=== PATIENT | male | born 1960 | race Caucasian/White ===

== ENCOUNTER 2020-05-03 12:52 | Outpatient (CLI) | payer BC, SELFPAY | END 2020-05-03 12:53 | disposition home or self-care (01) | LOC: ANHAUDIO 12:54 | PROVIDERS: PCP Nurse Practitioner Family; Visit Provider Nurse Practitioner Family | DX: H90.A22 Sensorineural hearing loss, unilateral, left ear, with restricted hearing on the contralateral side (principal); H90.A31 Mixed conductive and sensorineural hearing loss, unilateral, right ear with restricted hearing on the contralateral side | CPT/HCPCS: 92557; 92567 ==

== ENCOUNTER 2020-09-16 14:00 | Outpatient (RCR) | payer BC, SELFPAY | END 2020-09-16 23:59 | disposition home or self-care (01) | LOC: ANHAUDIO 14:00 | PROVIDERS: PCP Nurse Practitioner Family; Visit Provider Nurse Practitioner Family | DX: Z46.1 Encounter for fitting and adjustment of hearing aid (principal) | CPT/HCPCS: 99199; V5160; V5261 ==

== ENCOUNTER 2020-10-18 15:06 | Outpatient (RCR) | payer BC, SELFPAY | END 2020-10-18 23:59 | disposition home or self-care (01) | LOC: ANHAUDIO 15:06 | PROVIDERS: PCP Nurse Practitioner Family; Visit Provider Nurse Practitioner Family | DX: Z46.1 Encounter for fitting and adjustment of hearing aid (principal) | CPT/HCPCS: 99199 ==

== ENCOUNTER → 2022-01-13 12:28 | Outpatient (CLI) | payer MEDICARE, SELFPAY ==
--- NOTE | ~2022-01-13 | XR_ITS ---
XR chest 2V 01/13/2022 12:54 Indication: Chronic obstructive lung disease Procedure: 2 view chest Comparison: 05/17/2011 Findings: There has been progression of chronic interstitial fibrosis. Heart size normal. The lungs a re hyperinflated which is consistent with, but not diagnostic of chronic obstructive pulmonary diseas e. No acute focal pneumonia, edema, pleural effusion or pneumothorax. Impression: 1: No acute cardiopulmonary disease. 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 Reviewed, dictated and finalized at location A. Impression: 1: No acute cardiopulmonary disease. 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
== END ==
PROVIDERS: PCP Nurse Practitioner Family; Visit Provider Nurse Practitioner Family
DX: J44.9 Chronic obstructive pulmonary disease, unspecified (principal); J98.2 Interstitial emphysema
CPT/HCPCS: 71046

== ENCOUNTER 2022-01-16 15:15 | Emergency (ER) | payer MEDICARE, MEDICAID, SELFPAY ==
[2022-01-16 15:25] VITALS: BP 134/84; PULSE 72; RESP 16; TEMP 36.5; O2SAT 98
--- NOTE | 2022-01-16 16:07 | ED.BACK ---
HPI - Back Pain/Injury General Chief Complaint: Urogenital-Male Stated Complaint: Kidney Infection Time Seen by Provider: 01/16/22 15:35 Source: patient Mode of arrival: ambulatory Limitations: no limitations History of Present Illness HPI Narrative: 61-year-old male presents with complaint of lower back pain for 1 week. Reports that he has chronic back pain along my spine but now hurting on both sides. Is concerned that he has a kidney infection. Is not having any urinary symptoms. No fever chills. No nausea vomiting diarrhea. Pain is worse with movement. Reports work-related injury 3 and half years ago. Takes Vicodin twice a day. Is prescribed cyclobenzaprine but does not take this medication because it causes drowsiness. No other complaints today. All systems reviewed and negative except as noted above. Related Data Home Medications Medication Instructions Recorded Confirmed albuterol sulfate 2.5 mg/3 mL 2.5 mg continuous nebulization PRN 01/16/22 01/16/22 (0.083 %) solution for nebulization PRN difficulty breathing amlodipine 10 mg tablet 10 mg PO DAILY 01/16/22 01/16/22 cyclobenzaprine 10 mg tablet 10 mg PO DAILY 01/16/22 01/16/22 diclofenac sodium 50 mg 50 mg PO DAILY 01/16/22 01/16/22 tablet,delayed release famotidine 20 mg tablet 20 mg PO DAILY 01/16/22 01/16/22 hydrocodone 5 mg-acetaminophen 325 1 tablet PO DAILY 01/16/22 01/16/22 mg tablet tamsulosin 0.4 mg capsule 0.4 mg PO DAILY 01/16/22 01/16/22 zolpidem 10 mg tablet 10 mg PO DAILY 01/16/22 01/16/22 Allergies Allergy/AdvReac Type Severity Reaction Status Date / Time No Known Allergies Allergy Verified 01/16/22 15:18 Review of Systems Review of Systems: CONSTITUTIONAL: Denies fever, chills, or sweats. EYES: Denies visual changes, redness, or discharge. ENT: Denies rhinorrhea, congestion, sore throat, or otalgia. CARDIOVASCULAR: Denies chest pain, palpitations, or edema. RESPIRATORY: Denies cough or dyspnea. GASTROINTESTINAL: Denies abdominal pain, nausea, vomiting, or diarrhea. GENITOURINARY: Denies dysuria or hematuria. SKIN: Denies rash or itching. MUSCULOSKELETAL: Reports low back pain. NEUROLOGIC: Denies headache, numbness, or weakness. PSYCHIATRIC: Denies anxiety or depression. All other systems reviewed are negative, except as documented in HPI. PMFSH Social History Social History Alcohol intake: never Comments At time of signature, agree with nursing past medical, surgical, social and family history. There is no relevant family history pertinent to the presenting complaint. Exam Narrative: GENERAL: This is a well-nourished, well-developed patient, in no apparent distress. HEAD: normocephalic, atraumatic. EYES: PERRL. Sclera clear/white. Vision is grossly intact. EARS: External ears normal NOSE: External nose normal NECK: Neck supple, non-tender without lymphadenopathy, masses or thyromegaly. CARDIOVASCULAR: Regular rate and rhythm without murmurs, gallops, or rubs. RESPIRATORY: Clear to auscultation. Breath sounds equal bilaterally. No wheezes, rales, or rhonchi. SKIN: warm, Dry, intact with no suspicious lesions or rash, good texture and turgor. NEURO: awake, alert, and oriented to person, place and time. There were no obvious focal neurologic abnormalities. EXTREMITIES: No joint tenderness, effusion, or edema noted. BACK: Muscular tenderness/spasm bilaterally to low back. Pain is worse with flexion and extension. Range of motion is decreased due to pain. No CVA tenderness. Course Course Level of Care: Express Care Visit Vital Signs Vital signs: Vital Signs Temperature 36.5 C 01/16/22 15:25 Pulse Rate 72 01/16/22 15:25 Respiratory Rate 16 01/16/22 15:25 Blood Pressure 134/84 01/16/22 15:25 Pulse Oximetry 98 01/16/22 15:25 Oxygen Delivery Room Air 01/16/22 15:25 Temperature 36.5 C 01/16/22 15:25 Pulse Rate 72 01/16/22 15:25 Respiratory Rate 16 01/16/22 15:25 Blood Press
== END 2022-01-16 16:13 | disposition home or self-care (01) ==
PROVIDERS: Emergency Provider Nurse Practitioner Family; PCP Nurse Practitioner Family
DX: S39.012A Strain of muscle, fascia and tendon of lower back, initial encounter (principal); X58.XXXA Exposure to other specified factors, initial encounter; G89.29 Other chronic pain; M54.9 Dorsalgia, unspecified; I10 Essential (primary) hypertension; J44.9 Chronic obstructive pulmonary disease, unspecified; K21.9 Gastro-esophageal reflux disease without esophagitis; N40.0 Benign prostatic hyperplasia without lower urinary tract symptoms
CPT/HCPCS: 81003; 87491; 87591; 87661; 99213; G0463

== ENCOUNTER 2024-06-26 18:30 | Inpatient (IN) | payer MEDICARE, SELFPAY ==
[2024-06-26] VITALS (20 sets, daily range): BP systolic 110–146; BP diastolic 67–86; PULSE 107–137; RESP 17–37; TEMP 37.2–37.6; O2SAT 91–100
--- NOTE | ~2024-06-26 | XR_ITS ---
EXAMINATION: XR chest 1V portable DATE: 06/27/2024 11:09 INDICATION: Pneumonia. TECHNIQUE: A single frontal view of the chest was obtained. COMPARISON: Chest 2 views 01/13/2022, chest CT 06/26/2024 FINDINGS: There are widespread interstitial opacities in the lungs. There are airspace opacities with cavitation in right upper lobe. There are airspace opacities in left mid and lower lung zones. No pl eural effusion or pneumothorax. The heart size is normal. IMPRESSION: 1. Diffuse lung disease, consistent with pneumonia superimposed on chronic lung disease. Reviewed, dictated and finalized at location B. PRINT PRESS OPERATOR
--- NOTE | ~2024-06-26 | XR_ITS ---
EXAMINATION: XR chest 1V portable DATE: 06/28/2024 07:15 INDICATION: Pneumonia TECHNIQUE: frontal view of the chest was obtained. COMPARISON: Chest radiograph dated 06/27/2024 06/26/2024 FINDINGS: No interval change in particular and mild airspace opacities in both lungs most prominent in the righ t upper and left mid and lower lung zones. Lucencies in the right upper lung zone consistent with und erlying emphysema which is better appreciated on prior CT. No pleural effusion or pneumothorax. The c ardiomediastinal silhouette is normal. IMPRESSION: 1. Unchanged diffuse bilateral lung disease consistent with emphysema and chronic interstitial lung d isease with likely superimposed pneumonia in the right upper lung zone. Reviewed, dictated and finalized at location A. GROOMER IMPRESSION: 1. Unchanged diffuse bilateral lung disease consistent with emphysema and chron ic interstitial lung disease with likely superimposed pneumonia in the right up per lung zone.
--- NOTE | ~2024-06-26 | US_ITS ---
EXAMINATION: US renal BI DATE: 06/27/2024 11:23 INDICATION: Right renal lesion on prior CT TECHNIQUE: Multiple ultrasound grayscale images of the kidneys were obtained. COMPARISON: CT dated 06/26/2024 FINDINGS: The right kidney measures 11.7 x 5.7 x 5.0 cm. The left kidney measures 12.1 x 5.3 x 4.8 cm. The kidn eys demonstrate normal echogenicity. 2.6 cm anechoic right renal cyst corresponding to the lesion of concern on prior CT. There is no hydronephrosis in either kidney. No stones identified. The bladder is normal. IMPRESSION: 1. 2.6 cm right renal cyst. Otherwise normal kidneys without hydronephrosis. Reviewed, dictated and finalized at location A. C2 TACTICAL ANALYSIS TECHNICIAN
--- NOTE | ~2024-06-26 | XR_ITS ---
Portable chest x-ray Comparison: 06/28/2024 Clinical History: Pneumonia Findings: Extensive interstitial pulmonary disease present. Stable right upper lobe patchy consolida tive change. Cardiomediastinal silhouette is stable. Bones and soft tissues are unremarkable. Impression: Stable patchy consolidation right upper lobe. Stable underlying diffuse chronic interstitial disease. Reviewed, dictated and finalized at [facility]. UATE ENGINEER Impression: Stable patchy consolidation right upper lobe. Stable underlying diffuse chronic interstitial disease.
--- NOTE | ~2024-06-26 | CT_ITS ---
EXAMINATION: CTA chest PE protocol DATE: 06/26/2024 21:55 FAMILY LIFE COUNSELOR INDICATION: Shortness of breath and tachycardia. Pulmonary embolus suspected clinically TECHNIQUE: Computed tomographic angiography (CTA) of the chest was performed with 100 mL Omnipaque-35 0 intravenous contrast. The dose-length product was 747.89 mGy-cm. Maximum intensity projection 3D-re constructions of the aorta and other arteries were constructed by the technologist on a separate work station. COMPARISON: Reference is made to a CT examination of the chest dated 06/16/2019 FINDINGS: No filling defect is identified within the main or proximal pulmonary arteries. The main pulmonary artery is not enlarged. The thoracic aorta is of normal caliber without dissection. Redemonstration of peripheral honeycombing, panlobular emphysema, significant fibrotic change with a bilateral upper lobe predominance. No discrete nodules are appreciated. The cystic lesions within the right upper lobe now demonstrates thickened horne, an interval change. Varicose bronchiectasis is redemonstrated. Bulky calcified lymph nodes are identified within the right pulmonary hilum, unchanged from prior. Soft tissue attenuation foci are present within the bilateral pulmonary elena, possibly hilar lymph no ovidio minimally increased in size from 2020 examination. Multiple lymph nodes are redemonstrated within the mediastinum. The largest is within the subcarinal region measuring 16 mm in short axis dimension (increased from p rior when it measured 10 mm). No acute compression fracture is present within the thoracic spine. No displaced rib fracture is noted. The heart is of normal size, without pericardial effusion. Within the upper abdomen: Small hiatal hernia is present The gallbladder is not visualized, presumably surgically absent. The bilateral adrenal glands are unremarkable. Fluid attenuation focus within the interpolar region of the right kidney, not included on the previou s examination for which focused ultrasound may be performed to evaluate its morphology. IMPRESSION: No pulmonary embolus. No aortic dissection. Findings consistent with patient's known interstitial lung disease demonstrating progression since examination. Mediastinal lymphadenopathy Findings within the interpolar region of the right kidney for which focused ultrasound may be perform ed nonemergently to evaluate its morphology. Reviewed, dictated and finalized at location [facility]. LY LIFE COUNSELOR IMPRESSION: No pulmonary embolus. No aortic dissection. Findings consistent with patient's known interstitial lung disease demonstratin g progression since 2019 examination. Mediastinal lymphadenopathy Findings within the interpolar region of the right kidney for which focused ult rasound may be performed nonemergently to evaluate its morphology.
--- NOTE | 2024-06-26 18:57 | ECG_ITS ---
Test Date: 2024-06-26 19:30:22 Measurements Intervals [place] Rate: 110 P: 19 [place]: 148 QRS: -16 QRSD: 84 T: 26 QT: 303 QTc: 411 Interpretive Statements SINUS TACHYCARDIA ABNORMAL RHYTHM ECG No previous ECG available for comparison Electronically Signed On 06-27-2024 11:53:15 COMPUTER HELP DESK REPRESENTATIVE by Madelin Berumen
--- NOTE | 2024-06-26 19:05 | ED.SOB ---
HPI - SOB/Dyspnea General Chief Complaint: Shortness of Breath/Dyspnea <Yamilex Baker HOT STICK MAN - Last Filed: 06/26/24 19:12> Stated Complaint: fatigue, cough, <Yamilex Baker HOT STICK MAN - Last Filed: 06/26/24 19:12> Time Seen by Provider: 06/26/24 18:55 <Yamilex Baker HOT STICK MAN - Last Filed: 06/26/24 19:12> Focused HPI: Patient is a 63-year-old male who endorses a 2 and half week history of cough, shortness of breath, and chest pain. He is unsure whether not he has had a temperature but does endorse chills. Patient also endorses body aches,wheezing, and fatigue. He reports he has a history of high blood pressure and COPD. GENERAL: Ill-appearing, well-nourished, and in mild respiratory distress. HEAD: Normocephalic, atraumatic. CHEST: Coarse and wheezing to auscultation. Mild respiratory distress d/t SOB. HEART: Tachycardia, regular rhythm. NEURO: ?Alert and oriented x3. Patient screened in triage and initial orders placed.? ?Additional care and disposition to be based upon?diagnostic testing and treatment. <Yamilex Baker, HOT STICK MAN - Last Filed: 06/26/24 19:12> Focused HPI: Patient is a 63-year-old male who endorses a 2 and half week history of cough, shortness of breath, and chest pain. He is unsure whether not he has had a temperature but does endorse chills. Patient also endorses body aches, wheezing, and fatigue. He reports he has a history of high blood pressure and COPD. GENERAL: Ill-appearing, well-nourished, and in mild respiratory distress. HEAD: Normocephalic, atraumatic. CHEST: Coarse and wheezing to auscultation. Mild respiratory distress d/t SOB. HEART: Tachycardia, regular rhythm. NEURO: ?Alert and oriented x3. Patient screened in triage and initial orders placed.? ?Additional care and disposition to be based upon?diagnostic testing and treatment. Agree with triage assessment. Patient states that he is supposed to be using some inhalers for his COPD but he admits that he does not use them like he is supposed to. <Suma Dumont MD - Last Filed: 06/27/24 00:03> Related Data Home Medications: Home Medications ?Medication ?Instructions ?Recorded ?Confirmed ?Last Taken ?Type albuterol sulfate 2.5 mg/3 mL 2.5 mg continuous nebulization PRN 01/16/22 01/16/22 Unknown History (0.083 %) solution for nebulization PRN difficulty breathing amlodipine 10 mg tablet 10 mg PO DAILY 01/16/22 01/16/22 Unknown History cyclobenzaprine 10 mg tablet 10 mg PO DAILY 01/16/22 01/16/22 Unknown History diclofenac sodium 50 mg 50 mg PO DAILY 01/16/22 01/16/22 Unknown History tablet,delayed release famotidine 20 mg tablet 20 mg PO DAILY 01/16/22 01/16/22 Unknown History hydrocodone 5 mg-acetaminophen 325 1 tablet PO DAILY 01/16/22 01/16/22 Unknown History mg tablet tamsulosin 0.4 mg capsule 0.4 mg PO DAILY 01/16/22 01/16/22 Unknown History zolpidem 10 mg tablet 10 mg PO DAILY 01/16/22 01/16/22 Unknown History <Yamilex Baker APRN - Last Filed: 06/26/24 19:12> Allergies/Adverse Reactions: Allergies Allergy/AdvReac Type Severity Reaction Status Date / Time No Known Allergies Allergy Verified 06/26/24 19:31 <Yamilex Baker APRN - Last Filed: 06/26/24 19:12> Review of Systems Review of Systems: All systems are reviewed and are negative unless stated otherwise in the HPI. <Suma Dumont MD - Last Filed: 06/27/24 00:03> PMFSH Social History Social History: Social History Alcohol intake: never <Yamilex Baker APRN - Last Filed: 06/26/24 19:12> Exam Narrative: General: Alert, awake, afebrile, productive cough. HEENT: PERRL, no rhinorrhea, no post nasal drip, oropharynx clear. Neck: Trachea midline, no JVD, no lymphadenopathy. Cardiovascular: Regular rate and rhythm, no murmurs, rubs or gallops, no peripheral edema. Respiratory: Coarse breath sounds worse on the right lung thompson, tachypnea, faint wheezing, mild respiratory distress. Abdomen: Soft, nontender, nondistended, no rebound, no guarding, no peritoneal signs. Musculoskeletal: No joint swelling or deformity, normal muscle tone. Skin: No rashes or petechia, no signs of infection. Psychiatric: Alert and oriented, normal behavior and judgment for situation. Neurological: Alert and oriented to person, place, and time. Follows all commands. No focal deficits, speech is clear and fluent. <Suma Dumont MD - Last Filed: 06/27/24 00:03> Course Vital Signs Vital signs: Vital Signs Temperature 98.9 F 06/26/24 18:55 Pulse Rate 123 H 06/26/24 18:55 Respiratory Rate 26 H 06/26/24 18:55 Blood Pressure 133/67 06/26/24 18:55 Pulse Oximetry 94 06/26/24 18:55 Oxygen Delivery Room Air 06/26/24 18:55 Temperature 99.1 F 06/26/24 22:32 Pulse Rate 107 H 06/26/24 22:31 Respiratory Rate 17 06/26/24 22:31 Blood Pressure 128/76 06/26/24 22:31 Pulse Oximetry 96 06/26/24 22:31 Oxygen Delivery Room Air 06/26/24 19:28 <Yamilex Baker APRN - Last Filed: 06/26/24 19:12> Vital Signs Temperature 98.9 F 06/26/24 18:55 Pulse Rate 123 H 06/26/24 18:55 Respiratory Rate 26 H 06/26/24 18:55 Blood Pressure 133/67 06/26/24 18:55 Pulse Oximetry 94 06/26/24 18:55 Oxygen Delivery Room Air 06/26/24 18:55 Temperature 99.1 F 06/26/24 22:32 Pulse Rate 107 H 06/26/24 22:31 Respiratory Rate 17 06/26/24 22:31 Blood Pressure 128/76 06/26/24 22:31 Pulse Oximetry 96 06/26/24 22:31 Oxygen Delivery Room Air 06/26/24 19:28 <Suma Dumont MD - Last Filed: 06/27/24 00:03> MDM - SOB/Dyspnea MDM Narrative Medical decision making narrative: The patient was evaluated by myself in the emergency department. History is obtained from patient who is an independent historian and physical exam was performed. External medical records were reviewed at this time. IV was established and pertinent tests were ordered. Patient was administered 1 L IV fluid bolus with normal saline. Patient was also started on antibiotics with Rocephin and azithromycin to cover him for sepsis likely source lower respiratory tract. Patient was also administered a DuoNeb breathing treatment. EKG was obtained which revealed sinus tachycardia rate of 110 beats per minute. No ST changes, T wave inversions or evidence of acute ischemia. EKG was independently interpreted by me and is currently pending official cardiology read. Laboratory results obtained revealing leukocytosis of 17.2, AST 79 ALT 78, otherwise unremarkable. Viral swabs negative for COVID/influenza/RSV. ABG revealed a pH of 7.48, pCO2 24.9, pO2 69.2 and a bicarb of 18.1. Imaging studies obtained included CT angio PE protocol which was independently interpreted by me revealing: No pulmonary embolus. No aortic dissection. Findings consistent with patient's known interstitial lung disease demonstrating progression since 2020 examination. Mediastinal lymphadenopathy Findings within the interpolar region of the right kidney for which focused ultrasound may be performed nonemergently to evaluate its morphology. Differential diagnosis considerations include pneumonia, pulmonary emboli, acute viral syndrome, sepsis. Comorbidities impacting this visit include history of COPD. I have evaluated and discussed social determinants of health with the patient that could potentially impact subsequent diagnosis and treatment plans. On repeat assessment of the patient, reevaluation revealed that the patient is doing well and is in no acute distress. Patient symptoms have improved since he arrived to our emergency department. Repeat vital signs were all reviewed and noted to be stable. Differential diagnosis and treatment plan were discussed with the patient at bedside. Patient agrees with discussion and after shared medical decision making agrees with admission All questions were answered to the patient's satisfaction. Please were discussed with the RAILROAD CAR CLEANER Iban @ [phone] and he accepted admission. <Suma Dumont MD - Last Filed: 06/27/24 00:03> Lab Data Result diagrams: 06/26/24 19:30 06/26/24 19:30 <Yamilex Baker APRN - Last Filed: 06/26/24 19:12> Labs: Lab Results 06/26/24 06/26/24 06/26/24 Range/Units 19:29 19:30 21:15 WBC 17.2 H (4.5-10.0) K/mm3 RBC 5.67 (4.6-6.20) M/mm3 Hgb 16.0 (14.0-18.0) g/dL Hct 48.3 (42.0-52.0) % MCV 85.2 (80-100) fl MCH 28.2 (26-34) pg MCHC 33.1 (32-36) g/dl RDW 14.3 (11.5-14.5) % Plt Count 290 (150-375) k/mm3 MPV 9.1 (7.4-10.4) fl Immature Gran % (Auto) 0.8 H (0-0.5) % Neut % (Auto) 83.1 H (45.5-73.1) % Lymph % (Auto) 8.7 L (18.3-44.2) % [place] % (Auto) 6.8 (2.6-8.5) % Eos % (Auto) 0.3 (0-4.4) % Baso % (Auto) 0.3 (0.2-1.2) % Lymph # (Auto) 1.50 (0.9-3.2) K/mm3 [place] # (Auto) 1.2 H (0.1-0.6) K/mm3 Eos # (Auto) 0.1 (0-0.3) K/mm3 Baso # (Auto) 0.1 (0.0-0.1) K/mm3 Abs Immat Gran (auto) 0.14 H (0.00-0.031) K/mm3 Absolute Neuts (auto) 14.2 H (1.3-6.7) K/mm3 Absolute Nucleated RBC 0.000 (0.0-0.012) K/mm3 Nucleated RBC % 0.0 (0.0-0.2) % PT 15.2 H (11.1-14.7) Seconds INR 1.2 APTT 30.1 (22.3-36.8) Seconds Methemoglobin (0-1.5) %THb Sodium 134 L (137-145) mmol/L Potassium 4.3 (3.4-5.0) mmol/L Chloride 98 (98-107) mmol/L Carbon Dioxide 27 (22-30) mmol/L Anion Gap 9 (4-12) mmol/L BUN 16 (9-20) mg/dL Creatinine 1.31 H (0.7-1.3) mg/dL Estim Creat Clear Calc 62 ml/min Estimated GFR 55 L (59 - ) Glucose 131 H (65-110) mg/dL Lactic Acid 1.8 (0.7-2.0) mmol/L Calcium 9.0 (8.4-10.2) mg/dL Magnesium 1.8 (1.6-2.3) mg/dL Total Bilirubin 0.9 (0.2-1.3) mg/dL AST 79 H (17-59) U/L ALT 78 H (6-50) U/L Alkaline Phosphatase 125 (38-126) U/L NT-Pro-B Natriuret Pep 289 H (19.9-100) pg/mL Total Protein 7.0 (6.3-8.2) g/dL Albumin 3.6 (3.5-5.1) g/dL Influenza A (RT-PCR) Negative (Negative) Influenza B (RT-PCR) Negative (Negative) RSV (RT-PCR) Negative (Negative) SARS-CoV-2 RNA (RT-PCR) Negative (Negative) 06/26/24 Range/Units 23:22 WBC (4.5-10.0) K/mm3 RBC (4.6-6.20) M/mm3 Hgb (14.0-18.0) g/dL Hct (42.0-52.0) % MCV (80-100) fl MCH (26-34) pg MCHC (32-36) g/dl RDW (11.5-14.5) % Plt Count (150-375) k/mm3 MPV (7.4-10.4) fl Immature Gran % (Auto) (0-0.5) % Neut % (Auto) (45.5-73.1) % Lymph % (Auto) (18.3-44.2) % [place] % (Auto) (2.6-8.5) % Eos % (Auto) (0-4.4) % Baso % (Auto) (0.2-1.2) % Lymph # (Auto) (0.9-3.2) K/mm3 [place] # (Auto) (0.1-0.6) K/mm3 Eos # (Auto) (0-0.3) K/mm3 Baso # (Auto) (0.0-0.1) K/mm3 Abs Immat Gran (auto) (0.00-0.031) K/mm3 Absolute Neuts (auto) (1.3-6.7) K/mm3 Absolute Nucleated RBC (0.0-0.012) K/mm3 Nucleated RBC % (0.0-0.2) % PT (11.1-14.7) Seconds INR APTT (22.3-36.8) Seconds Methemoglobin 0.3 (0-1.5) %THb Sodium (137-145) mmol/L Potassium (3.4-5.0) mmol/L Chloride (98-107) mmol/L Carbon Dioxide (22-30) mmol/L Anion Gap (4-12) mmol/L BUN (9-20) mg/dL Creatinine (0.7-1.3) mg/dL Estim Creat Clear Calc ml/min Estimated GFR (59 - ) Glucose (65-110) mg/dL Lactic Acid (0.7-2.0) mmol/L Calcium (8.4-10.2) mg/dL Magnesium (1.6-2.3) mg/dL Total Bilirubin (0.2-1.3) mg/dL AST (17-59) U/L ALT (6-50) U/L Alkaline Phosphatase (38-126) U/L NT-Pro-B Natriuret Pep (19.9-100) pg/mL Total Protein (6.3-8.2) g/dL Albumin (3.5-5.1) g/dL Influenza A (RT-PCR) (Negative) Influenza B (RT-PCR) (Negative) RSV (RT-PCR) (Negative) SARS-CoV-2 RNA (RT-PCR) (Negative) <Yamilex Baker, HOT STICK MAN - Last Filed: 06/26/24 19:12> Lab Results 01/23/25 01/23/25 01/23/25 Range/Units 19:29 19:30 21:15 WBC 17.2 H (4.5-10.0) K/mm3 RBC 5.67 (4.6-6.20) M/mm3 Hgb 16.0 (14.0-18.0) g/dL Hct 48.3 (42.0-52.0) % MCV 85.2 (80-100) fl MCH 28.2 (26-34) pg MCHC 33.1 (32-36) g/dl RDW 14.3 (11.5-14.5) % Plt Count 290 (150-375) k/mm3 MPV 9.1 (7.4-10.4) fl Immature Gran % (Auto) 0.8 H (0-0.5) % Neut % (Auto) 83.1 H (45.5-73.1) % Lymph % (Auto) 8.7 L (18.3-44.2) % [place] % (Auto) 6.8 (2.6-8.5) % Eos % (Auto) 0.3 (0-4.4) % Baso % (Auto) 0.3 (0.2-1.2) % Lymph # (Auto) 1.50 (0.9-3.2) K/mm3 [place] # (Auto) 1.2 H (0.1-0.6) K/mm3 Eos # (Auto) 0.1 (0-0.3) K/mm3 Baso # (Auto) 0.1 (0.0-0.1) K/mm3 Abs Immat Gran (auto) 0.14 H (0.00-0.031) K/mm3 Absolute Neuts (auto) 14.2 H (1.3-6.7) K/mm3 Absolute Nucleated RBC 0.000 (0.0-0.012) K/mm3 Nucleated RBC % 0.0 (0.0-0.2) % PT 15.2 H (11.1-14.7) Seconds INR 1.2 APTT 30.1 (22.3-36.8) Seconds Methemoglobin (0-1.5) %THb Sodium 134 L (137-145) mmol/L Potassium 4.3 (3.4-5.0) mmol/L Chloride 98 (98-107) mmol/L Carbon Dioxide 27 (22-30) mmol/L Anion Gap 9 (4-12) mmol/L BUN 16 (9-20) mg/dL Creatinine 1.31 H (0.7-1.3) mg/dL Estim Creat Clear Calc 62 ml/min Estimated GFR 55 L (59 - ) Glucose 131 H (65-110) mg/dL Lactic Acid 1.8 (0.7-2.0) mmol/L Calcium 9.0 (8.4-10.2) mg/dL Magnesium 1.8 (1.6-2.3) mg/dL Total Bilirubin 0.9 (0.2-1.3) mg/dL AST 79 H (17-59) U/L ALT 78 H (6-50) U/L Alkaline Phosphatase 125 (38-126) U/L NT-Pro-B Natriuret Pep 289 H (19.9-100) pg/mL Total Protein 7.0 (6.3-8.2) g/dL Albumin 3.6 (3.5-5.1) g/dL Influenza A (RT-PCR) Negative (Negative) Influenza B (RT-PCR) Negative (Negative) RSV (RT-PCR) Negative (Negative) SARS-CoV-2 RNA (RT-PCR) Negative (Negative) 06/26/24 Range/Units 23:22 WBC (4.5-10.0) K/mm3 RBC (4.6-6.20) M/mm3 Hgb (14.0-18.0) g/dL Hct (42.0-52.0) % MCV (80-100) fl MCH (26-34) pg MCHC (32-36) g/dl RDW (11.5-14.5) % Plt Count (150-375) k/mm3 MPV (7.4-10.4) fl Immature Gran % (Auto) (0-0.5) % Neut % (Auto) (45.5-73.1) % Lymph % (Auto) (18.3-44.2) % [place] % (Auto) (2.6-8.5) % Eos % (Auto) (0-4.4) % Baso % (Auto) (0.2-1.2) % Lymph # (Auto) (0.9-3.2) K/mm3 [place] # (Auto) (0.1-0.6) K/mm3 Eos # (Auto) (0-0.3) K/mm3 Baso # (Auto) (0.0-0.1) K/mm3 Abs Immat Gran (auto) (0.00-0.031) K/mm3 Absolute Neuts (auto) (1.3-6.7) K/mm3 Absolute Nucleated RBC (0.0-0.012) K/mm3 Nucleated RBC % (0.0-0.2) % PT (11.1-14.7) Seconds INR APTT (22.3-36.8) Seconds Methemoglobin 0.3 (0-1.5) %THb Sodium (137-145) mmol/L Potassium (3.4-5.0) mmol/L Chloride (98-107) mmol/L Carbon Dioxide (22-30) mmol/L Anion Gap (4-12) mmol/L BUN (9-20) mg/dL Creatinine (0.7-1.3) mg/dL Estim Creat Clear Calc ml/min Estimated GFR (59 - ) Glucose (65-110) mg/dL Lactic Acid (0.7-2.0) mmol/L Calcium (8.4-10.2) mg/dL Magnesium (1.6-2.3) mg/dL Total Bilirubin (0.2-1.3) mg/dL AST (17-59) U/L ALT (6-50) U/L Alkaline Phosphatase (38-126) U/L NT-Pro-B Natriuret Pep (19.9-100) pg/mL Total Protein (6.3-8.2) g/dL Albumin (3.5-5.1) g/dL Influenza A (RT-PCR) (Negative) Influenza B (RT-PCR) (Negative) RSV (RT-PCR) (Negative) SARS-CoV-2 RNA (RT-PCR) (Negative) <Suma Dumont MD - Last Filed: 06/27/24 00:03> ABG Data ABG results: 06/26/24 23:22 Puncture Site Right radial ABG pH 7.480 H ABG pCO2 24.9 L ABG pO2 69.2 L ABG PO2/FiO2 Ratio 3.30 ABG HCO3 18.1 L ABG O2 Saturation 95.3 ABG O2 Content 19.8 ABG Base Excess -3.4 A-a Gradient 50.7 Oxyhemoglobin 94.1 Carboxyhemoglobin 0.7 Reduced Hemoglobin 4.9 Total Hemoglobin 15.0 O2 Delivery Device Room air FiO2 21 <Yamilex Baker APRN - Last Filed: 06/26/24 19:12> 06/26/24 23:22 Puncture Site Right radial ABG pH 7.480 H ABG pCO2 24.9 L ABG pO2 69.2 L ABG PO2/FiO2 Ratio 3.30 ABG HCO3 18.1 L ABG O2 Saturation 95.3 ABG O2 Content 19.8 ABG Base Excess -3.4 A-a Gradient 50.7 Oxyhemoglobin 94.1 Carboxyhemoglobin 0.7 Reduced Hemoglobin 4.9 Total Hemoglobin 15.0 O2 Delivery Device Room air FiO2 21 <Suma Dumont MD - Last Filed: 06/27/24 00:03> Discharge Plan Discharge Clinical Impression: Sepsis, Pneumonia, bacterial, COPD (chronic obstructive pulmonary disease), Transaminitis <Yamilex Baker APRN - Last Filed: 06/26/24 19:12> Patient Disposition: Still a Patient <Yamilex Baker APRN - Last Filed: 06/26/24 19:12> Condition: Improved <Yamilex Baker APRN - Last Filed: 06/26/24 19:12> Patient Language: Mongolian <Yamilex Baker APRN - Last Filed: 06/26/24 19:12> Prescriptions: No Action cyclobenzaprine 10 mg tablet 10 mg PO DAILY albuterol sulfate 2.5 mg /3 mL (0.083 %) solution for nebulization 2.5 mg continuous nebulization PRN PRN (Reason: difficulty breathing) hydrocodone-acetaminophen 5-325 mg tablet 1 tablet PO DAILY famotidine 20 mg tablet 20 mg PO DAILY tamsulosin 0.4 mg capsule 0.4 mg PO DAILY amlodipine 10 mg tablet 10 mg PO DAILY diclofenac sodium 50 mg tablet,delayed release (DR/EC) 50 mg PO DAILY zolpidem 10 mg tablet 10 mg PO DAILY methocarbamol 750 mg tablet 750 mg PO Q8H PRN (Reason: muscle pain/spasm) Qty: 30 0RF diclofenac sodium 50 mg tablet,delayed release (DR/EC) 50 mg PO BID Qty: 40 0RF <Yamilex Baker APRN - Last Filed: 06/26/24 19:12> Follow-up/Referrals: Jonas,DAVEY Hill [Primary Care Provider] - <Yamilex Baker APRN - Last Filed: 06/26/24 19:12> Time of Disposition: 21:47 <Yamilex Baker APRN - Last Filed: 06/26/24 19:12> 21:47 <Suma Dumont MD - Last Filed: 06/27/24 00:03>
[2024-06-26] MEDS: IPRATROPIUM 0.5 MG/ALBUTEROL SULFATE 2.5 MG AMPUL.NEB 3 ML INHALATION ×4 (19:35→19:45)
[2024-06-26 19:37] LABS: Basophils Absolute Auto 0.1 K/mm3 (0.0-0.1); Basophils Percent Auto 0.3 % (0.2-1.2); Eosinophils Absolute Auto 0.1 K/mm3 (0-0.3); Eosinophils Percent Auto 0.3 % (0-4.4); Hematocrit 48.3 % (42.0-52.0); Immature Granulocyte Absolute 0.14 K/mm3 (0.00-0.031); Immature Granulocyte Percent A 0.8 % (0-0.5); Lymphocytes Percent Auto 8.7 % (18.3-44.2); Mean Corpuscular HGB Conc 33.1 g/dl (32-36); Mean Corpuscular Hemoglobin 28.2 pg (26-34); Mean Corpuscular Volume 85.2 fl (80-100); Mean Platelet Volume 9.1 fl (7.4-10.4); Monocytes Absolute Auto 1.2 K/mm3 (0.1-0.6); Monocytes Percent Auto 6.8 % (2.6-8.5); Neutrophils Absolute Auto 14.2 K/mm3 (1.3-6.7); Neutrophils Percent Auto 83.1 % (45.5-73.1); Platelet Count Result 290 k/mm3 (150-375); Red Blood Count 5.67 M/mm3 (4.6-6.20); Red Cell Distribution Width 14.3 % (11.5-14.5); White Blood Count 17.2 K/mm3 (4.5-10.0)
[2024-06-26 19:47] LABS: Alanine Aminotransferase 78 U/L (6-50); Albumin Level 3.6 g/dL (3.5-5.1); Alkaline Phosphatase 125 U/L (38-126); Anion Gap 9 mmol/L (4-12); Aspartate Amino Transferase 79 U/L (17-59); Bilirubin,Total 0.9 mg/dL (0.2-1.3); Blood Urea Nitrogen 16 mg/dL (9-20); Carbon Dioxide 27 mmol/L (22-30); Chloride 98 mmol/L (98-107); Estimated CRCL calculation 62 ml/min; Estimated Glomerular Filt Rate 55; Glucose 131 mg/dL (65-110); INR 1.2; Magnesium 1.8 mg/dL (1.6-2.3); Partial Thromboplastin Time 30.1 Seconds (22.3-36.8); Potassium 4.3 mmol/L (3.4-5.0); Prothrombin Time 15.2 Seconds (11.1-14.7); Sodium 134 mmol/L (137-145)
[2024-06-26 19:57] LABS: NT Pro B Type Natriuretic Pept 289 pg/mL (19.9-100)
[2024-06-26 20:12] LABS: Influenza A QL RT-PCR Negative (Negative); Influenza B QL RT-PCR Negative (Negative); RSV RNA, RT-PCR Negative (Negative); SARS-CoV-2 RNA PCR Negative (Negative)
[2024-06-26 21:36] LABS: Lactic Acid Reflex 1.8 mmol/L (0.7-2.0)
[2024-06-26] MEDS: SODIUM CHLORIDE 0.9% IV 1,000 ML 999 ML IV CONT (21:49)
[2024-06-26] MEDS: ACETAMINOPHEN 325 MG TABLET 650 MG PO (22:02)
[2024-06-26] MEDS: AZITHROMYCIN 500 MG/NS 250 ML 500 MG/250 ML BAG 250 MG IVPB (22:31)
[2024-06-26 23:30] LABS: Alveolar/Arterial O2 Gradient 50.7 mmHg; Base Excess ABG -3.4 mEq/l (+/-2.0); Carboxyhemoglobin 0.7 % THb (0-2.0); Fractional Inspired Oxygen 21 %; HCO3 ABG 18.1 mEq/l (22.0-26.0); Methemoglobin ABG 0.3 %THb (0-1.5); Oxygen Content ABG 19.8 %vol (16.0-22.0); Oxygen Saturation ABG 95.3 % (95.0-100.0); Oxyhemoglobin 94.1 % THb (90.0-100.0); PCO2 ABG 24.9 mmHg (35.0-45.0); PO2 ABG 69.2 mmHg (80.0-100.0); Reduced Hemoglobin 4.9 %THb (0-5.0)
[2024-06-26 23:32] LABS: Device ROOM AIR; Modified Allen's Test Pass; Site Drawn RIGHT RADIAL
[2024-06-27] VITALS (8 sets, daily range): BP systolic 111–134; BP diastolic 64–78; PULSE 83–99; RESP 18–22; TEMP 36.6–37.2; O2SAT 92–95; BMI 26.6
--- NOTE | 2024-06-27 02:40 | ADMGEN ---
This patient, Clifford Hartman, was admitted to [facility] Surg Room 301-01. Patient/family oriented to hospital policies and general routines including ID bracelet, bed and alarms, visiting hours, pain management, procedures, bathroom and other care routines, personal items, smoking policy, room service/diet, and visiting hours. Information on how to activate the Rapid Response Team has been discussed. Patient/Family are encouraged to report perceived risks to care and to ask questions if they do not understand what they are told or what they should do.
--- OUTSIDE RECORDS SUMMARY | 2024-06-27 06:14 | XMS_ITS | Data Portability ---
Author Organization [place] [facility] [facility], Main Office Address [address] [place] [address] Care Team Providers Care Hand Loom Weaver Name Role Phone SERGIO MCDANIEL Primary Care Provider Assessment Encounter Date Assessment Date Assessment LastModified by Organization Details LastModified Time 11/06/2023 11/06/2023 Oversite provider was present on site during this visit I attest that I have provided general supervision for chronic care management. [email or web address] Not available 11/06/2023 16:41:25 Plan of Treatment Reminders Order Date Submit Date Provider Last Modified By Organization Details Last Modified Time Details Appointments None recorded. Lab None recorded. Referral None recorded. Procedures None recorded. Surgeries None recorded. Imaging None recorded. Medication Orders gabapentin 300 mg capsule 2022 023 [id number], [id number] [facility], [place], [place], [id number], 15:06:50 Patient TargetsNo targets recorded. Patient Instructions Encounter Date Encounter Id Patient Instructions Last Modified By Organization Details Last Modified Time 10/01/2023 [id number] albuterol inhalation Not available 10/23/2023 16:19:32 shortness of breath: care instructions Not available 10/23/2023 16:19:32 11/06/2023 [id number] Quitting Tobacco : Care Instructions Not available 03/06/2024 15:26:14 statins: care instructions Not available 03/06/2024 15:26:14 reducing risk of another heart attack with medicine: care instructions Not available 03/06/2024 15:26:14 12/12/2023 [id number] Learning About B E FAST: Stroke Warning Signs Not available 03/05/2024 09:36:11 reducing risk of another heart attack with medicine: care instructions Not available 03/05/2024 09:36:11 Quitting Tobacco : Care Instructions Not available 03/05/2024 09:36:11 Reason for Referral None Reported. Results Created Date Observation Date Name Description Value Unit Range Abnormal Flag Note LastModifiedBy Organization Detail LastModifiedTime 10/26/19 24 10/26/2023 CT, chest , w/o contr ast No observ ation record ed. [email or web address] [facility] [address] [facility], [place], [address], 11/27/2023 16:13:54 06/26/19 25 06/26/2024 imagi ng/di agnos tic resul t No observ ation record ed. [facility] [address], [place], [address], 06/26/2024 23:15:48 Result Notes None recorded. Problems Name Problem SNOMED Code Status Onset Date Resolution Date Notes Provider Name and Address Organization Details Recorded Time Hearing disorder 323506121 Active Not Available [facility] 3 16:12:58 Chronic obstructiv e pulmonary disease 34470569 Active Not Available [facility] 3 16:12:58 Illiteracy 493493990 Active 2021 Not Available [facility] 3 16:12:58 Anti-nucle ar factor detected 645118351 Active 2022 Not Available [facility] 3 16:12:58 Interstiti al lung disease 121098520 Active 2021 Not Available [facility] 3 16:12:58 Gastroesop hageal reflux disease 569003946 Active Not Available [facility] 3 16:12:58 Urinary symptoms 846715518 Active Not Available [facility] 3 16:12:58 Degenerati on of lumbar interverte bral disc 31498639 Active 2021 Not Available [facility] 3 16:12:58 Disorder of sleep-wake cycle 868193240 Active Not Available [facility] 3 16:12:58 Vitamin D deficiency 42683298 Active Not Available [facility] 3 16:12:58 Dyslipidem ia 348529978 Active Not Available [facility] 3 16:12:58 Prostate specific antigen above reference range 953318959 Active Not Available [facility] 3 16:12:58 Periodic limb movement disorder 603223874 Active Not Available [facility] 3 16:12:58 Clubbing of nail 7806754 Active 2022 Not Available [facility] 3 16:12:58 Functional diarrhea 69561516 Active Not Available [facility] 3 16:12:58 Cough 07932513 Active Not Available [facility] 3 16:12:58 Hyperlipid emia 59942473 Active 2021 Not Available [facility] 3 16:12:58 Dyspnea on exertion 93921834 Active 2021 Not Available [facility] 3 16:12:58 Cigarette smoker 93223046 Active 2021 Not Available [facility] 3 16:12:58 Prediabete s 660672845 Active 2021 Not Available [facility] 3 16:12:58 Snoring 43203426 Active Not Available [facility] 3 16:12:58 Smoker 04933275 Active Not Available [facility] 3 16:12:58 Fatigue 24498034 Active Not Available [facility] 3 16:12:58 Pulmonary emphysema 37186441 Active 2022 Not Available [facility] 3 16:12:59 Chronic constipati on 920930309 Active 2022 Not Available [facility] 3 16:12:58 Dizziness 316097167 Active 2022 Not Available [facility] 3 16:12:58 Insomnia 692416552 Active 2022 Not Available [facility] 3 16:12:58 Right side sciatica 1657793038782 01 Active 2022 Not Available [facility] 3 16:12:58 Nicotine dependence 50110812 Active 2022 Not Available [facility] 3 16:12:58 Mood disorder 07315172 Active 2022 [facility] [address], [place], [address] , [facility] 3 15:12:35 Depressive disorder 75820885 Active 2022 [facility] [address], [address], [place], [address] , [facility] 3 15:12:54 Anterior chest wall pain 625311791 Active 2022 [facility] [address], [address], [place], [address] , [facility] 3 14:43:01 Hordeolum externum of lower eyelid of right eye 9449596024463 04 Active 2022 [facility] Barn[facility] [address], [address], [place], [address] , [facility] 3 14:44:34 Essential hypertensi on 00132513 Active 2023 Beronica Villa [facility] 4 14:11:56 Notes:Medical History: Nicot ine dependence Bilateral hearing loss/tinnitus Early REM onset Obesity with mild OSAHS, AHI = 3, 05/04/16 Hypertension Hyperlipidemia AIDE BPH PLMD Vit D deficiency Thoracic spondylosis Lumbar DDD Procedure History: Right leg fracture 1969 Left leg plate placement 1996 Cholecystectomy 2016 Some problems listed in Document: #[id number] could not be added to this patient's chart. Please review this document and add these problems to the patient's chart manually as needed. Problem Notes None recorded. Procedures Surgical History Date Name Laterality Status Provider Name and Address Organization Details Recorded Time 01/14/20 Chronic care management services completed Beronica Villa [facility] 01/14/2024 14:18:59 12/18/19 Chronic care management services completed Beronica Villa [facility] 12/18/2023 09:38:56 11/06/19 Chronic care management services completed Beronica Villa [facility] 11/06/2023 16:43:30 10/01/19 Chronic care management services completed Beronica Villa [facility] 10/01/2023 14:16:26 open reduction of fracture with internal fixation completed Not Available [facility] 08/02/2022 00:47:35 Gallbladder Surgery completed Not Available [facility] 08/02/2022 00:47:35 Imaging Results Imaging Date Name Status LastModified by Organiz ation Details LastModified Time 10/26/2023 CT, chest, w/o contrast completed [email or web address] [facility] [address] [place], [address], 11/27/2023 16:13:54 06/26/2024 imaging/diagn ostic result active [facility] [address], [place], [address], 06/26/2024 23:15:48 Procedure Notes None recorded. Medical Equipment None Reported. Allergies No known drug allergies Medications Name Sig Start Date Stop Date Status Note LastModified by Organization Details LastModified Time cyclobenzap rine 10 mg tablet active Not Available Not Available Not Available amoxicillin 500 mg capsule Take 1 capsule every 12 hours by oral route for 7 days. active Not Available Not Available No t Available Anti-Diarrh eal (loperamide ) 2 mg tablet Take 1 tablet twice a day by oral route as needed for 30 days. 05/26 completed Not Available Not Available Not Available Miralax 17 gram/dose oral powder Take 17 g every day by oral route. 11/05 completed Not Available Not Available Not Available atorvastati n 40 mg tablet active Not Available Not Available Not Available ipratropium 0.5 mg-albutero l 3 mg (2.5 mg base)/3 mL nebulizatio n soln Inhale 3 mL 4 times a day by nebulizat ion route as needed. active Not Available Not Available No t Available tizanidine 2 mg tablet active Not Available Not Available Not Available clindamycin HCl 300 mg capsule TAKE 1 CAPSULE BY MOUTH TWICE DAILY active Not Available Not Available No t Available albuterol sulfate 2.5 mg/3 mL (0.083 %) solution for nebulizatio n Inhale 3 mL 3 times a day by nebulizat ion route as needed. active Not Available Not Available No t Available azithromyci n 250 mg tablet TAKE 2 TABLETS (500 MG) BY ORAL ROUTE ONCE DAILY FOR 1 DAY THEN 1 TABLET (250 MG) BY ORAL ROUTE ONCE DAILY FOR 4 DAYS active Not Available Not Available No t Available tizanidine 4 mg tablet TK 1 T PO Q 8 H PRN 08/11 completed Not Available Not Available Not Available hydrocodone 5 mg-acetamin ophen 325 mg tablet TAKE 1 TABLET BY MOUTH THREE TIMES DAILY NEEDED FOR BREAKTHRO UGH PAIN. active Not Available Not Available No t Available ondansetron HCl 8 mg tablet Take 1 tablet every 8 hours by oral route as needed. active Not Available Not Available No t Available meloxicam 15 mg tablet Take 1 tablet every day by oral route. 04/12 completed Not Available Not Available Not Available prednisone 20 mg tablet Take 2 tablets every day by oral route for 5 days. active Not Available Not Available No t Available metronidazo le 500 mg tablet Take 1 tablet every 8 hours by oral route for 5 days. active Not Available Not Available No t Available amlodipine 5 mg tablet TK 1 T PO QD active Not Available Not Available No t Available ciprofloxac in 500 mg tablet Take 1 tablet every 12 hours by oral route for 5 days. active Not Available Not Available No t Available peg-electro lyte solution 420 gram oral solution 01/24 completed Not Available Not Available Not Available omeprazole 40 mg capsule,del ayed release TAKE 1 CAPSULE BY MOUTH EVERY DAY 08/11 completed Not Available Not Available Not Available tramadol 50 mg tablet TAKE 1 TABLET BY MOUTH THREE TIMES DAILY NEEDED FOR PAIN 03/25 completed Not Available Not Available Not Available amoxicillin 500 mg tablet Take 1 tablet every 8 hours by oral route for 10 days. active Not Available Not Available No t Available terbinafine HCl 250 mg tablet Take 1 tablet every day by oral route for 90 days. 08/11 completed Not Available Not Available Not Available famotidine 20 mg tablet TAKE 1 TABLET BY MOUTH TWICE DAILY active Not Available Not Available No t Available methocarbam ol 750 mg tablet TAKE 1 TABLET BY MOUTH EVERY 8 HOURS NEEDED FOR MUSCLE PAIN OR SPASM 08/11 completed Not Available Not Available Not Available tamsulosin 0.4 mg capsule TAKE 1 CAPSULE BY MOUTH DAILY active Not Available Not Available No t Available amlodipine 10 mg tablet TAKE 1 TABLET BY MOUTH DAILY active Not Available Not Available No t Available bisacodyl 10 mg rectal suppository UNW AND I 1 SUP REC UTD 05/07 completed Not Available Not Available Not Available pantoprazol e 40 mg tablet,angelina yed release Take 1 tablet every day by oral route for 90 days. 01/24 completed Not Available Not Available Not Available erythromyci n 5 mg/gram (0.5 %) eye ointment APPLY 1 CM RIBBON INTO THE LOWER CONJUNCTI GISELE SAC(S) IN THE AFFECTED EYE(S) BY OPHTHALMI C ROUTE 3 TIMES PER DAY 11/05 completed Not Available Not Available Not Available cyanocobala min (vit B-12) 1,000 mcg/mL injection solution Inject 1 mL every month by intramusc ular route. 05/07 completed [facility] [phone] Not Available Not Available Not Available oseltamivir 75 mg capsule TK 1 C PO BID FOR 5 DAYS 05/07 completed Not Available Not Available Not Available lidocaine 5 % topical patch APPLY 1 PATCH TOPICALLY TO THE SKIN EVERY DAY. MAY WEAR UP TO 12 HOURS 01/25 completed Not Available Not Available Not Available diclofenac potassium 50 mg tablet TAKE 1 TABLET BY MOUTH TWICE DAILY active Not Available Not Available No t Available gabapentin 300 mg capsule active Not Available Not Available Not Available magnesium 250 mg tablet Take by oral route. 08/11 completed Not Available Not Available Not Available diclofenac sodium 50 mg tablet,angelina yed release TAKE 1 TABLET BY MOUTH TWICE DAILY active Not Available Not Available No t Available zolpidem 5 mg tablet TAKE 1 TABLET BY MOUTH EVERY DAY active Not Available Not Available No t Available ergocalcife rol (vitamin D2) 1,250 mcg (50,000 unit) capsule TAKE 1 CAPSULE BY MOUTH EVERY WEEK 08/11 completed Not Available Not Available Not Available diazepam 10 mg tablet TK 1 T PO ONCE D HS 11/22 completed Not Available Not Available Not Available zolpidem 10 mg tablet TAKE 1 TABLET BY MOUTH EVERY EVENING NEEDED FOR SLEEP active Not Available Not Available No t Available methylpredn isolone 4 mg tablets in a dose pack FPD active Not Available Not Available Not Available diazepam 5 mg tablet TK 01 T PO QHS 07/27 completed Not Available Not Available Not Available Ventolin HFA 90 mcg/actuati on aerosol inhaler INHALE 1 PUFF BY MOUTH THREE TIMES DAILY NEEDED active Not Available Not Available No t Available Spiriva with HandiHaler 18 mcg and inhalation capsules INHALE CONTENTS OF 1 CAPSULE ONCE DAILY USING HANDIHALE R 11/05 completed Not Available Not Available Not Available lactulose 10 gram/15 mL oral solution TAKE 15 ML BY MOUTH DAILY NEEDED FOR CONSTIPAT ION 11/05 completed Not Available Not Available Not Available Chantix 1 mg tablet TAKE 1 TABLET BY MOUTH TWICE DAILY NEEDED 01/25 completed Not Available Not Available Not Available Symbicort 160 mcg-4.5 mcg/actuati on HFA aerosol inhaler Inhale 2 puffs twice a day by inhalatio n route for 90 days. 05/07 completed Not Available Not Available Not Available Fish Oil 360 mg-1,200 mg capsule Take 1 capsule every day by oral route as directed for 90 days. 05/26 completed Not Available Not Available Not Available Chantix Starting Month Box 0.5 mg (11)-1 mg (42) tablets in dose pack Take per package instructi ons active Not Available Not Available No t Available Linzess 145 mcg capsule Take 1 capsule every day by oral route. 11/05 completed Not Available Not Available Not Available Anoro Ellipta 62.5 mcg-25 mcg/actuati on powder for inhalation INHALE 1 PUFF BY MOUTH EVERY DAY DIRECTED 11/05 completed Not Available Not Available Not Available MegaRed Anderson-3 Krill Oil 1,000 mg-230 mg-60 mg capsule Take 1 capsule every day by oral route. 05/07 completed Not Available Not Available Not Available Stiolto Respimat 2.5 mcg-2.5 mcg/actuati on solution for inhalation INHALE 2 PUFFS BY MOUTH EVERY DAY DIRECTED active Not Available Not Available No t Available Spiriva Respimat 1.25 mcg/actuati on solution for inhalation Inhale 2 puffs every day by inhalatio n route. 05/19 completed Not Available Not Available Not Available Imodium A-D 2 mg capsule Take per package instructi ons 05/07 completed Not Available Not Available Not Available [facility] Inhub 250 mcg-50 mcg/dose powder for inhalation INHALE 1 PUFF BY MOUTH TWICE DAILY DIRECTED. RINSE MOUTH AFTER USE active Not Available Not Available No t Available Vitals Date Recorded Body height Body mass index (BMI) Body weight Body temperature Heart rate Oxygen saturation Oxygen saturation in Arterial blood by Pulse oximetry Systolic blood pressure Diastolic blood pressure Provider Name and Address Organization Details Last Updated DateTime 180.34 cm 32.9 kg/m2 981180. 8 g 98.4 [degF] 110 /min 94 % 94 % 140 mm[Hg] 80 mm[Hg] Marielena Nunez LPN [facility] [employer] [employer] [facility] 14:21:35 Date Recorded Body height Provider Name an d Address Organization Details Last Updated DateTime 10/01/2023 180.34 cm Beronica Villa [facility] [employer] [facility] [employer] 10/01/2023 14:03:41 Date Recorded Body height Provider Name an d Address Organization Details Last Updated DateTime 11/06/2023 180.34 cm Beronica Villa [facility] [employer] [facility] [employer] 11/06/2023 16:28:41 Date Recorded Body height Provider Name an d Address Organization Details Last Updated DateTime 12/12/2023 180.34 cm Beronica Villa [facility] [employer] [facility] [employer] [facility] 12/18/2023 09:37:15 Date Recorded Body height Provider Name an d Address Organization Details Last Updated DateTime 01/10/2024 180.34 cm Beronica Villa [facility] [employer] [facility] [employer] 01/14/2024 14:17:20 Social History Question Answer Notes LastModified by Organizat ion Details LastModified Time Tobacco Smoking Status Current Every Day Smoker Not Available [facility] 08/02/2022 00:45:45 Do You Have An Advance Directive? No Packet Sent [id number] Information not available 08/02/2022 What Is Your Level Of Alcohol Consumption? None MIGRATION.44925 [id number] Information not available 08/02/2022 What Is Your Level Of Caffeine Consumption? Occasional 2 Cups Per Day Coffee MIGRATION.83994 [id number] Information not available 08/02/2022 How Much Tobacco Do You Chew? None MIGRATION.72261 [id number] Information not available 08/02/2022 In The 14 Days Before Symptom Onset, Have You Had Close Contact With A Laboratory-confir med COVID-19 While That Case Was Ill? No MIGRATION.00292 [id number] Information not available 08/02/2022 In The 14 Days Before Symptom Onset, Have You Had Close Contact With A Person Who Is Under Investigation For COVID-19 While That Person Was Ill? No MIGRATION.87505 06312 Information not available 08/02/2022 What Type Of Diet Are You Following? REGULAR MIGRATION.32633 94977 Information not available 08/02/2022 Which Illicit Or Recreational Drugs Have You Used? Marijuana MIGRATION.97596 76092 Information not available 08/02/2022 Do You Or Have You Ever Used E-cigarettes Or Vape? Former User Of Electronic Cigarettes Tried It But Didnt Like It MIGRATION.25908 72753 Information not available 08/02/2022 Are There Any Guns Present In Your Home? No MIGRATION.32305 55267 Information not available 08/02/2022 How Many Years Have You Used Illicit Or Recreational Drugs? 54 MIGRATION.62109 79907 Information not available 08/02/2022 Do You Use Insect Repellent Routinely? No MIGRATION.95412 91148 Information not available 08/02/2022 What Was The Date Of Your Most Recent Tobacco Screening? 03/14/2022 MIGRATION.58541 98150 Information not available 08/02/2022 What Is Your Current Pack Years? 30ormorepackye ars MIGRATION.17304 66973 Information not available 08/02/2022 Do You Have Any Pets? No MIGRATION.55919 01669 Information not available 08/02/2022 Do You Use Your Seat Belt Or Car Seat Routinely? No Information not available 10/03/2022 Do You Have Smoke And Carbon Monoxide Detectors In Your Home? Yes MIGRATION.19306 63130 Information not available 08/02/2022 At What Age Did You Start Smoking Tobacco? 7 MIGRATION.75781 58891 Information not available 08/02/2022 Do You Or Have You Ever Used Smokeless Tobacco? Former Smokeless Tobacco User MIGRATION.98815 38114 Information not available 08/02/2022 How Much Tobacco Do You Smoke? 1 PPD MIGRATION.31968 03975 Information not available 08/02/2022 Do You Feel Stressed (tense, Restless, Nervous, Or Anxious, Or Unable To Sleep At Night)? [id number] Information not available 10/03/2022 Do You Use Any Illicit Or Recreational Drugs? Yes MIGRATION.24278 74287 Information not available 08/02/2022 Do You Use Sunscreen Routinely? No MIGRATION.39514 98110 Information not available 08/02/2022 Has Tobacco Cessation Counseling Been Provided? No MIGRATION.73681 19580 Information not available 08/02/2022 Have You Recently Traveled Abroad? No MIGRATION.00858 96777 Information not available 08/02/2022 Have You Used IV Drugs? No MIGRATION.11735 21677 Information not available 08/02/2022 Do You Have Any Dietary Restrictions? No MIGRATION.58773 83837 Information not available 08/02/2022 Sex: Unknown Functional Status Question Answer Note LastModified by [employer] ion Details LastModified Time What is your exercise level? Occasional [id number] Information not available 08/02/2022 Mental Status None recorded. Family History Relationship Description Onset Age of this Age Resolved Age Notes LastModified by Organization Details LastModified Time Mother Malignant tumor of lung [id number] Not available 08/02/2022 00:47:37 Mother Diabetes mellitus MIGRATION.938 [id number] Not available 08/02/2022 00:47:37 Mother Hypertensive disorder MIGRATION.481 [id number] Not available 08/02/2022 00:47:37 Mother Hyperlipidem ia MIGRATION.653 [id number] Not available 08/02/2022 00:47:37 Mother Lupus erythematosu s MIGRATION.534 [id number] Not available 08/02/2022 00:47:37 Father Malignant tumor of lung MIGRATION.899 [id number] Not available 08/02/2022 00:47:37 Brother Lupus erythematosu s MIGRATION.637 [id number] Not available 08/02/2022 00:47:37 Brother Infarct myocardiecto my MIGRATION.609 [id number] Not available 08/02/2022 00:47:37 Medical History Condition Response BLINDNESS N RHEUMATIC FEVER N KIDNEY STONES N BLADDER PROBLEMS N MRSA N OTHER # 1 N POLIO N LUNG DISEASE/DISORDER N RADIATION / CHEMOTHERAPY N COPD N Other # 2 N BLOOD DISEASES N SURGERY N EAR OR HEARING PROBLEMS Y MUMPS N FEMALE PROBLEMS / INFECTIONS N BOWEL PROBLEMS Y DEPRESSION (INCLUDING POST ) N STROKE/TIA N THYROID DISEASE N ULCERS N BENIGN PROSTATIC HYPERPLASIA N MEASLES N CERVICALGIA N TB SKIN TEST N MYOCARDIAL INFARCTION N PARAPELGIA N OBESITY N GERD/NAUSEA N ANEURYSM N URINARY/BLADDER/KIDNEY PROBLEMS N CORONARY ARTERY DISEASE (CAD) N MENIERE'S DISEASE N ADDICTION CONCERNS N ENDOMETRIOSIS N USE OF BLOOD THINNERS N SKIN PROBLEMS N EMPHYSEMA N GASTROINTESTINAL DISORDER N MUSCLE,JOINT OR BONE PROBLEMS N GASTROINTESTINAL BLEEDING N BLOOD CLOTS N ASTHMA Y CATARACTS N ERECTILE DYSFUNCTION N GI PROBLEMS N CHF N Low Testosterone N NEUROPATHY N INFERTILITY N AIDS/HIV N FRACTURES N CHEMOTHERAPY / RADIATION N VISION/EYE PROBLEMS N LIVER DISEASE N MALE HYPOGONADISM N HYPERTENSION N ANXIETY DISORDER N BLOOD TRANSFUSION N ANEMIA/BLOOD DISORDER N CHRONIC EAR INFECTIONS N BRONCHITIS N TUBERCULOSIS N GLAUCOMA N FOOT PROBLEM N DIVERTICULITIS N SLEEP APNEA N CHICKENPOX N ALLERGIES/HAYFEVER N INFECTIOUS DISEASE N PROSTATE N HEART ARRHYTHMIA N INSOMNIA N HIGH CHOLESTEROL / HYPERLIPIDEMIA N EYE PROBLEMS N HYPERTHYROIDISM N EATING DISORDER N NEUROLOGICAL PROBLEMS N EDEMA N CHRONIC PAIN SYNDROME N HYPOTHYROIDISM N CONSTIPATION N CAROTID BLOCKAGE N BACK / NECK PROBLEMS Y HAVE YOU BEEN HOSPITALIZED OR SEEN IN [facility] ER IN THE PAST YEAR ? N ATHEROSCLEROSIS N BREAST PROBLEMS N DIALYSIS N ECZEMA N FIBROMYALGIA N OSTEOPOROSIS N ARTHRITIS N NO SIGNIFICANT PAST MEDICAL HISTORY N APPENDICITIS N DIABETES, TYPE N BAD TEETH N HEARTBURN / REFLUX Y ADD/ADHD N AUTISM SPECTRUM DISORDER (ASD) N HEPATITIS / LIVER DISEASE N PULMONARY DISEASE N GOUT N SLEEP DISORDER Y ALZHEIMER'S DISEASE N PAIN N DEMENTIA N HERPES N SEIZURES/EPILEPSY N HEADACHES/MIGRAINES N VASCULAR DISEASE N PACEMAKER N DIZZINESS N HEART DISEASE/HEART PROBLEMS N KIDNEY DISEASE N SCARLET FEVER N MULTIPLE SCLEROSIS N DEVELOPMENTAL OR BEHAVIORAL DISORDERS N MENTAL DISORDER/ILLNESS N CANCER: SPECIFY N CARDIAC ARRHYTHMIA N PNEUMONIA N ATRIAL FIBRILLATION N Gall Stones N PULMONARY EMBOLISM N AUTOIMMUNE DISEASE N Past Encounters Encounter ID Performer Location Encounter Start Date Encounter Closed Date Diagnosis/Indication Diagnosis SNOMED-CT Code Diagnosis ICD10 Code Diagnosis Note [id number] [facility] [address] [place] [address] 08/03/2020 00:00:00 08/04/2020 20:06:03 [id number] [facility] [place] [address] [place] [address] 09/07/2020 00:00:00 09/07/2020 20:31:02 [id number] [facility] [place] [address] [place] [address] 10/26/2020 00:00:00 10/26/2020 16:55:23 [id number] [facility] [place] [address] [place] [address] 12/01/2020 00:00:00 12/01/2020 15:33:52 [id number] [facility] [place] [address] [place] [address] 12/29/2020 00:00:00 12/29/2020 18:24:17 [id number] [facility] [place] [address] [place] [address] 01/28/2021 00:00:00 01/28/2021 18:33:40 [id number] [facility] [place] [address] [place] [address] 02/25/2021 00:00:00 02/25/2021 18:23:19 [id number] [facility] [place] [address] [place] [address] 03/25/2021 00:00:00 03/25/2021 19:53:06 [id number] [facility] [place] [address] [place] [address] 05/19/2021 00:00:00 05/19/2021 20:01:31 [id number] [facility] [place] [address] [place] [address] 06/16/2021 00:00:00 06/16/2021 17:27:45 [id number] [facility] [place] [address] [place] [address] 07/29/2021 00:00:00 07/29/2021 17:40:43 [id number] [facility] [place] [address] [place] [address] 2021 00:00:00 2021 20:06:05 [id number] [facility] [place] [address] [place] [address] 10/12/2021 00:00:00 10/12/2021 20:45:37 [id number] [facility] [place] [address] [place] [address] 11/23/2021 00:00:00 11/23/2021 17:45:02 [id number] [facility] [place] [address] [place] [address] 12/21/2021 00:00:00 12/21/2021 17:36:54 [id number] [facility] [place] [address] [place] [address] 01/18/2022 00:00:00 01/18/2022 17:24:49 [id number] [facility] [place] [address] [address] 01/25/2022 00:00:00 01/25/2022 17:16:50 [id number] [facility] [place] [address] [place] [address] 02/15/2022 00:00:00 02/15/2022 17:10:32 [id number] [facility] [place] [address] [place] [address] 03/15/2022 00:00:00 03/15/2022 19:21:31 [id number] [facility] [place] [address] [place] [address] 03/23/2022 00:00:00 03/23/2022 17:58:00 [id number] [facility] [place] [address] [place] [address] [address] [place] [address] 04/12/2022 00:00:00 04/12/2022 17:00:16 [id number] [facility] [place] [address] [facility] [address] [place] [address] 05/12/2022 00:00:00 05/12/2022 15:33:03 [id number] [facility] [place] [place] [address] [place] [address] 05/19/2022 00:00:00 05/19/2022 15:25:50 [id number] [facility] [place] [address] [place] [address] [address] [place] [address] 06/09/2022 00:00:00 06/09/2022 15:56:27 [id number] [facility] [place] [address] [place] [address] 07/03/2022 00:00:00 07/03/2022 15:58:16 [id number] [facility] [place] [address] [place] [address] [address] [place] [address] 07/07/2022 00:00:00 07/07/2022 15:21:12 [id number] KIKE Barnhart [facility] [place] [address] [place] [address] [address] [place] [address] 08/04/2022 15:13:04 08/04/2022 15:43:19 Chronic constipation [id number] K59.09 Chronic, likely exacerbate d by opioid pain medication .Recommend increasing oral fluids with non-caffei nated, non-alcoho lic beverages. Increase daily dietary fiber. May drink prune juice or pear juice to initiate bowel regularity and then decrease as needed to maintain a once daily or every other day bowel habit. Tylenol or Motrin may be used as needed for cramping. High fiber diet with whole grains, fruits and veggies. Fiber supplement with Metamucil or Citracel. Increase water, fluid intake-Rec ommend at least 6-8 8oz glasses day. Avoid straining. May take miralax BID. Follow up as needed, or sooner if new symptoms develop.Al so given Zach 145mcg samples to trial. Degenerati on of lumbar intervertebral disc 53207605 M51.36 ChronicPai n down to 4-5/10 with hydrocodon e. Will continue with hydrocodon e for pain.Pain with standing/w alking/sit ting. Unable to safely climb, stoop, kneel, bend, twist, push/pull more than a few lbs of weight. No improvemen t with steroid injections on 12/03/19. Pain has been ongoing/ch ronic for several years. Pt declined any further injections b/c he only got improvemen t for 2 days. No changes in function or pain.Pt encouraged to do PT exercises at home as tolerated. Continue with diclofenac , calcium, vit d, and mag as previously directed.O K to use otc lidocaine patches per package instructio ns.Pt takes pain medication only as prescribed . Denies any lending, selling, or borrowing of medication .U[place] appropriat e (03/15/22) .[place] PDMP checked 07/03/22 by BERNARD Patel. Dizziness [id number] R42 New problemMay be med s/eEncoura ged pt to take meds with food. [id number] KIKE Barnhart [facility] Primary Care [facility] [address] [facility] [address] [place] [address] 08/11/2022 17:12:17 08/11/2022 17:36:29 Dizziness [id number] R42 New problemLik kimberly medication s/e. Takes cyclobenza norman, zolpidem, and hydrocodon e.[facility] ed pt to take meds with food, avoid taking the above medication s at the same time. Medication review done [id number] Z76.89 Reviewed medication s and updated medication list. Discussed risks/bene fits of each medication . [id number] Genie Ferguson, [facility] Pul[facility]olo [facility] [place] [address] [place] [address] 09/05/2022 15:35:34 09/05/2022 16:20:26 Interstitial lung disease 360415393 J84.[address] 06/16/19 with peripheral honeycombi ng, emphysema, BUL predominan t fibrosisCX R from PCM 01/2022 with reported progressio AKRCT 06/2022 with ILD, honeycombi ng.No bronchiect asis notedCould represent CTD - ILDI have again discussed this in detail with him today and expressed the urgency of workup for underlying conditions Referral for ILD clinic again today, he will consider Pulmonary emphysema [address] chestI have recommende d Stanislav has this at home and will start daily as per directions Anti-nucle ar factor detected [id number] R76.8 Lab workup as follows:hy persensiti vity pneumoniti s profileanc a panelACE (angiotens in-convert ing enzyme), serumrf (rheumatoi d factor), serumccp (cyclic citrullina harshil peptide) iga+igg, serumssa Ab, serumssb Ab, serumjo-1 Ab, serumcentr omere B Ab, serumscler oderma (SCL-70) autoantibo dies, serummyosi tis autoantibo dy panel, serum or plasmahist oplasma Ab, serumBlast omyces dermatitid is Ab, qual ID, serumcocci dioides Ab, serumAll normalANA positive at 1:160Check DS-DNARheu matology referral again today Dyspnea on exertion 6084 5006 R06.09 IGG, Quantifero n GOLD, Alpha1, RAST, IGE all normalHe must quit smokingSix minute walk test 06/2022 normal Nicotine dependence 5629 4008 Z87.891 Smoking cessation counseling and techniques reviewed at length.??? Literature reviewed.A void triggers, support groups.Dis traction techniques Greater than 3 but less than 10 minutes spent discussing cessation. Declines NRT.Discus sed Rx options if needed in the future. [id number] KIKE Barnhart [facility] Primary Care [facility] [address] [facility] [address] [place] [address] 09/05/2022 16:32:22 09/05/2022 17:13:40 Chronic constipation [id number] K59.09 Chronic, likely exacerbate d by opioid pain medication .Recommend increasing oral fluids with non-caffei nated, non-alcoho lic beverages. Increase daily dietary fiber. May drink prune juice or pear juice to initiate bowel regularity and then decrease as needed to maintain a once daily or every other day bowel habit. Tylenol or Motrin may be used as needed for cramping. High fiber diet with whole grains, fruits and veggies. Fiber supplement with Metamucil or Citracel. Increase water, fluid intake-Rec ommend at least 6-8 8oz glasses day. Avoid straining. May take miralax BID. Follow up as needed, or sooner if new symptoms develop.Hernesto s given Zach 145mcg samples to trial last visit. Degenerati on of lumbar intervertebral disc 95085349 M51.36 Chronic, recent exacerbati on with right-side d sciaticaPa in normally down to 4-5/10 with hydrocodon e. Will continue with hydrocodon e for pain.Pain with standing/w alking/sit ting. Unable to safely climb, stoop, kneel, bend, twist, push/pull more than a few lbs of weight. No improvemen t with steroid injections on 12/03/19. Pain has been ongoing/ch ronic for several years. Pt declined any further injections b/c he only got improvemen t for 2 days. No changes in function or pain.Pt encouraged to do PT exercises at home as tolerated. Continue with anti-infla mmatory, calcium, vit d, and mag as previously directed.O K to use otc lidocaine patches per package instructio ns.Pt takes pain medication only as prescribed . Denies any lending, selling, or borrowing of medication .UDS appropriat e (03/15/22) , repeat next visit.[place] checked and appropriat eHydrocodo ne 5/325mg BID PRN Insomnia [id number] G47.0 0 ChronicSx improve with zolpidem 10mg QHS; however, pt has been out of medication for nearly six weeks.Refi ll givenDarren sun good sleep habits:Sle ep hygiene (set bedtime, routine for bed, dark room, no electronic s). Discussed that it will likely take several weeks to fully establish routine and note change in sleep patterns. Advised good sleep habits and patterns to include:-- Setting a goal for at least 7 to 8 hours of sleep time per day.--Usin g the bed mainly for sleep and to go to bed only when tired. If unable to fall asleep after 30 minutes, patient should get out of bed but should not engage in any activity that requires sustained mental alertness. --Maintain ing a regular bedtime and wake-up time even on weekends or days off of work.--Drew iding excessive naps during the daytime. If a nap is necessary, limit it to no more than 30minutes. --Minimizi ng environmen alyssa noise, bright lights, and extremes in bedroom temperatur e.--Avoidi ng alcohol, caffeinate d beverages, and nicotine products for at least 6 hours prior to bedtime.-- Avoiding strenuous exercise and large meals for at least 4 hours prior to bedtime. Right side sciatica 3202 [id number] 77414 M54.31 New problem, improvingL ikely secondary to degenerati ve disc disease of lumbar spine.Pt rated pain 8/10 at worst.Sx improving with pain meds, muscle relaxer, and rest.Daily good back mechanics reviewed with patient, good posture, avoid prolonged sitting or standing, stretches given and reviewed with patient. Heat 10-15 minutes 3 times daily as needed for pain or spasms. Go to ED for neurologic symptoms or incontinen ce. [id number] KIKE Barnhart [facility] Primary [facility] [address] [place] [address] 10/03/2022 14:39:40 10/03/2022 15:14:33 Right side sciatica [id number] 66100 M54.31 New problem, improvingL ikely secondary to degenerati ve disc disease of lumbar spine.Pt rated pain 8/10 at worst.Sx improving with pain meds, muscle relaxer, and rest.Daily good back mechanics reviewed with patient, good posture, avoid prolonged sitting or standing, stretches given and reviewed with patient. Heat 10-15 minutes 3 times daily as needed for pain or spasms. Go to ED for neurologic symptoms or incontinen ce. Degenerati on of lumbar intervertebral disc 58878922 M51.36 Chronic, recent exacerbati on with right-side d sciaticaPa in normally down to 4-5/10 with hydrocodon e. Will continue with hydrocodon e for pain.Pain with standing/w alking/sit ting. Unable to safely climb, stoop, kneel, bend, twist, push/pull more than a few lbs of weight. No improvemen t with steroid injections on 12/03/19. Pain has been ongoing/ch ronic for several years. Pt declined any further injections b/c he only got improvemen t for 2 days. No changes in function or pain.Pt encouraged to do PT exercises at home as tolerated. Continue with anti-infla mmatory, calcium, vit d, and mag as previously directed.O K to use otc lidocaine patches per package kate harris.Pt takes pain medication only as prescribed . Denies any lending, selling, or borrowing of medication .UDS appropriat e (03/15/22) , repeat next visit.[place] checked and appropriat eHydrocodo ne 5/325mg BID PRN Insomnia [id number] G47.0 0 ChronicSx improve with zolpidem 10mg QHS; however, pt had been out of medication for nearly six weeks.Refi ll given last visit.Revi ewed good sleep habits:Sle ep hygiene (set bedtime, routine for bed, dark room, no electronic s). Discussed that it will likely take several weeks to fully establish routine and note change in sleep patterns. Advised good sleep habits and patterns to include:-- Setting a goal for at least 7 to 8 hours of sleep time per day.--Usin g the bed mainly for sleep and to go to bed only when tired. If unable to fall asleep after 30 minutes, patient should get out of bed but should not engage in any activity that requires sustained mental alertness. --Maintain ing a regular bedtime and wake-up time even on weekends or days off of work.--Drew iding excessive naps during the daytime. If a nap is necessary, limit it to no more than 30minutes. --Minimizi ng environmen alyssa noise, bright lights, and extremes in bedroom temperatur e.--Avoidi ng alcohol, caffeinate d beverages, and nicotine products for at least 6 hours prior to bedtime.-- Avoiding strenuous exercise and large meals for at least 4 hours prior to bedtime. Chronic constipation 236 467448 K59.09 Chronic, likely exacerbate d by opioid pain medication .Recommend increasing oral fluids with non-caffei nated, non-alcoho lic beverages. Increase daily dietary fiber. May drink prune juice or pear juice to initiate bowel regularity and then decrease as needed to maintain a once daily or every other day bowel habit. Tylenol or Motrin may be used as needed for cramping. High fiber diet with whole grains, fruits and veggies. Fiber supplement with Metamucil or Citracel. Increase water, fluid intake-Rec ommend at least 6-8 8oz glasses day. Avoid straining. May take miralax BID. Follow up as needed, or sooner if new symptoms develop.Wa s given Linzess 145mcg samples to trial previously . [id number] KIKE Barnhart [facility] [address] [place] [address] 11/07/2022 14:48:58 11/07/2022 15:38:11 Right side sciatica [id number] 56384 M54.31 Chronic, stableLike ly secondary to degenerati ve disc disease of lumbar spine.Pt rated pain 8/10 at worst, no significan t pain today.Sx improved with pain meds, muscle relaxer, and rest.Daily good back mechanics reviewed with patient, good posture, avoid prolonged sitting or standing, stretches given and reviewed with patient. Heat 10-15 minutes 3 times daily as needed for pain or spasms. Go to ED for neurologic symptoms or incontinen ce. Degenerati on of lumbar intervertebral disc 01362694 M51.36 Chronic, recent exacerbati on with right-side d sciaticaPa in normally down to 4-5/10 with hydrocodon e. Will continue with hydrocodon e for pain.Pain with standing/w alking/sit ting. Unable to safely climb, stoop, kneel, bend, twist, push/pull more than a few lbs of weight. No improvemen t with steroid injections on 12/03/19. Pain has been ongoing/ch ronic for several years. Pt declined any further injections b/c he only got improvemen t for 2 days. No changes in function or pain.Pt encouraged to do PT exercises at home as tolerated. Continue with anti-infla mmatory, calcium, vit d, and mag as previously directed.O K to use otc lidocaine patches per package instructio ns.Pt takes pain medication only as prescribed . Denies any lending, selling, or borrowing of medication .[facility] appropriat e (03/15/22) , repeat today.[place] PD[place] checked and appropriat eHydrocodo ne 5/325mg BID PRN Medication monitoring 39 [id number] Z51.81 [id number] KIKE Barnhart [facility] Primary Care [facility] [address] [facility] [address] [place] [address] 12/28/2022 14:23:26 12/28/2022 15:31:51 Degeneration of lumbar intervertebral disc 57190524 M51.36 Chronic, recent exacerbati on with right-side d sciaticaPa in normally down to 4-5/10 with hydrocodon e. Will continue with hydrocodon e for pain.Pain with standing/w alking/sit ting. Unable to safely climb, stoop, kneel, bend, twist, push/pull more than a few lbs of weight. No improvemen t with steroid injections on 12/03/19. Pain has been ongoing/ch ronic for several years. Pt declined any further injections b/c he only got improvemen t for 2 days. No changes in function or pain.Pt encouraged to do PT exercises at home as tolerated. Continue with anti-infla mmatory, calcium, vit d, and mag as previously directed.O K to use otc lidocaine patches per package instructio ns.Pt takes pain medication only as prescribed . Denies any lending, selling, or borrowing of medication .S appropriat e (03/15/22) , repeat today.[place] checked and appropriat eHydrocodo ne 5/325mg BID PRN Right side sciatica 3202 [id number] 34069 M54.31 Chronic, stableLike ly secondary to degenerati ve disc disease of lumbar spine.Pt rated pain 8/10 at worst, no significan t pain today.Sx improved with pain meds, muscle relaxer, and rest.Daily good back mechanics reviewed with patient, good posture, avoid prolonged sitting or standing, stretches given and reviewed with patient. Heat 10-15 minutes 3 times daily as needed for pain or spasms. Go to ED for neurologic symptoms or incontinen ce. Depressive disorder 0630 0848 F32.A New problem--M ood Disorder-e ncouraged pt to consider counseling . Denies any SI/HI at this time. Pt declines medication at this time. [id number] KIKE Barnhart [facility] [place] [address] [facility] [address] [place] [address] 01/25/2023 14:25:40 01/25/2023 16:29:41 Anterior chest wall pain 987461691 R07.89 New problemRef erred pain from thoracic spine issues. Suspect pt is compensati ng with chest wall muscles.Al though pt describes sx as being on his right side, will check ekg today to evaluate for cardiac etiology.D iscussed s/s that warrant emergency evaluation . Hordeolum externum of lower eyelid of right eye [id number] 61414 H00.012 New problemVis ible stye to medial aspect of right lower lid. reports pt unable to tolerate eye gtts, will give erythromyc in ointment instead. Degenerati on of lumbar intervertebral disc 13516051 M51.36 Chronic,St ill experienci ng exacerbati on with right-side d sciaticaPa in normally down to 4-5/10 with hydrocodon e, but no longer effective, even with the muscle relaxant. Will continue with hydrocodon e for pain and add on gabapentin for the sciatica.P ain with standing/w alking/sit ting. Unable to safely climb, stoop, kneel, bend, twist, push/pull more than a few lbs of weight. No improvemen t with steroid injections on 12/03/19. Pain has been ongoing/ch ronic for several years. Pt declined any further injections b/c he only got improvemen t for 2 days. No changes in function or pain.Pt encouraged to do PT exercises at home as tolerated. Continue with anti-infla mmatory, calcium, vit d, and mag as previously directed.O K to use otc lidocaine patches per package instructio ns.Pt takes pain medication only as prescribed . Denies any lending, selling, or borrowing of medication .UDS appropriat e (03/15/22) , repeat today.[place] checked and appropriat eHydrocodo ne 5/325mg BID PRN Right side sciatica 3202 246183 39720 M54.31 Chronic, stableLike ly secondary to degenerati ve disc disease of lumbar spine.Pt rated pain 8/10 at worst, pt rates pain 8/10 today.Sx not improved with pain meds, muscle relaxer, and rest. Will add on gabapentin for the sciatica sx.Daily good back mechanics reviewed with patient, good posture, avoid prolonged sitting or standing. Due to chronic back pain, pt unable to do recommende d stretches. Heat 10-15 minutes 3 times daily as needed for pain or spasms. Go to ED for neurologic symptoms or incontinen ce. Depressive disorder 4091 6619 F32.A Not improvedSx are worsened by chronic pain. Highly encouraged pt to consider counseling . Denies any SI/HI at this time. Pt declines medication at this time. [id number] Genie Ferguson, [employer]-BC [facility] [place] [address] [place] [address] 02/28/2023 13:58:13 02/28/2023 15:49:59 Interstitial lung disease 821238086 J84.[address] 06/16/19 with peripheral honeycombi ng, emphysema, BUL predominan t fibrosisCX [facility], honeycombi ng.No bronchiect asis notedCould represent CTD - ILDI have again discussed this in detail with him today and expressed the urgency of workup for underlying conditions Pulmonary emphysema [address] chestStart StioltoRX to pharmacy today Anti-nucle ar factor detected [id number] R76.8 Lab workup as follows:hy persensiti vity pneumoniti s profileanc a panelACE (angiotens in-convert ing enzyme), serumrf (rheumatoi d factor), serumccp (cyclic citrullina harshil peptide) iga+igg, serumssa Ab, serumssb Ab, serumjo-1 Ab, serumcentr omere B Ab, serumscler oderma (SCL-70) autoantibo dies, serummyosi tis autoantibo dy panel, serum or plasmahist oplasma Ab, serumBlast omyces dermatitid is Ab, qual ID, serumcocci dioides Ab, serumAll normalANA positive at 1:160Rheum atology referral previously Dyspnea on exertion 6084 5006 R06.09 IGG, Quantifero n GOLD, Alpha1, RAST, IGE all normalHe must quit smokingSix minute walk test 06/2022 normal Nicotine dependence 5629 4008 Z87.891 Smoking cessation counseling and techniques reviewed at length.??? Literature reviewed.A void triggers, support groups.Dis traction techniques Greater than 3 but less than 10 minutes spent discussing cessation. Declines NRT.Discus sed Rx options if needed in the future. [id number] KIKE Barnhart [facility] Primary Care [facility] [address] [facility] [address] [place] [address] 03/21/2023 14:10:24 03/21/2023 15:31:48 Degeneration of lumbar intervertebral disc 98559037 M51.36 Chronic, no significan t interval changeStil l experienci ng exacerbati on with right-side d sciaticaPa in normally down to 4-5/10 with hydrocodon e, but no longer effective, even with the muscle relaxant. Will continue with hydrocodon e for pain and gabapentin for the sciatica.P ain with standing/w alking/sit ting. Unable to safely climb, stoop, kneel, bend, twist, push/pull more than a few lbs of weight. No improvemen t with steroid injections on 12/03/19. Pain has been ongoing/ch ronic for several years. Pt declined any further injections b/c he only got improvemen t for 2 days. No changes in function or pain.Pt encouraged to do PT exercises at home as tolerated. Continue with anti-infla mmatory, calcium, vit d, and mag as previously directed.O K to use otc lidocaine patches per package instructio ns.Pt takes pain medication only as prescribed . Denies any lending, selling, or borrowing of medication .UDS appropriat e (11/07/22)Un able to check [place] PDMP via [place].Hyd rocodone 5/325mg BID PRN, no refill needed. Right side sciatica 3202 947266 57403 M54.31 ChronicLik kimberly secondary to degenerati ve disc disease of lumbar spine.Pt rated pain 8/10 at worst, pt rates pain 8/10 today.Sx not improved with pain meds, muscle relaxer, and rest. Will add on gabapentin for the sciatica sx.Daily good back mechanics reviewed with patient, good posture, avoid prolonged sitting or standing. Due to chronic back pain, pt unable to do recommende d stretches. Heat 10-15 minutes 3 times daily as needed for pain or spasms. Go to ED for neurologic symptoms or incontinen ce. Depressive disorder [id number] [id number] F32.A Z73.3 Not improvedSx are worsened by chronic pain. Highly encouraged pt to consider counseling . Denies any SI/HI at this time. Pt declines medication at this time. [id number] [address] [address] 10/01/2023 13:54:07 10/11/2023 08:01:57 Chronic obstructive pulmonary disease 81096004 J44.9 Depressive disorder 3548 9007 F32.A Z73.3 Not improvedSx are worsened by chronic pain. Highly encouraged pt to consider counseling . Denies any SI/HI at this time. Pt declines medication at this time. [id number] [address] [address] 11/06/2023 16:25:13 11/06/2023 16:47:18 Chronic obstructive pulmonary disease 14521954 J44.9 Illiteracy [id number] Z55 .0 Cigarette smoker [id number] 7 F17.210 Hyperlipidemia 84436587 E78.5 Essential hypertension 10065042 I10 [id number] [address] [address] 12/18/2023 09:32:50 03/05/2024 17:14:15 Prostate specific antigen above reference range 113227897 R97.20 Hyperlipidemia 09098373 E78.5 Essential hypertension 89400893 I10 Cigarette smoker 9712461 7 F17.548 [id number] [address] [place] [address] 01/14/2024 14:13:09 03/05/2024 17:14:44 Cigarette smoker 61821629 F17.210 Periodic l imb movement disorder 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 Right side sciatica 3202 194948 76551 M54.31 Goals Section Goal Description Status Start Date LastModified by Organization Details LastModified Time Recreational Activities Participates in recreational activities Goal not achieved Beronica Villa CCM Information not available 10/01/2023 18:15:24 Adequate Sleep Achieves adequate, well-rested sleep with minimal disruption Goal not achieved 024 Beronica Villa CCM Information not available 10/01/2023 18:15:24 Chronic Condition Action Plan Follows action plan for any worsening of chronic condition(s) as per care team recommendation( s) Goal not achieved 024 Beronica Villa CCM Information not available 12/18/2023 13:48:58 Stress Management Reports effective management of stress Goal not achieved Beronica Villa CCM Information not available 10/01/2023 18:15:24 Smoking Cessation Quits smoking Goal not achieved 024 Beronica Villa CCM Information not available 12/18/2023 13:49:01 Activities of Daily Living Performs activities of daily living independently or with minimal assistance Goal not achieved 024 Beronica Villa CCM Information not available 10/01/2023 18:15:24 Medication Regimen Follows medication regimen as per care team recommendation( s) Goal not achieved Nell Villa CCM Information not available 12/18/2023 13:49:04 Family and Social Support Reports family and/or social support needs are met Goal not achieved Nell Villa CCM Information not available 10/01/2023 18:15:25 Quality of Life Reports satisfaction with quality of life Goal not achieved 024 Beronica Villa CCM Information not available 10/01/2023 18:15:25 Diet Adherence Follows prescribed or recommended diet Goal not achieved Nell Villa CCM Information not available 10/01/2023 18:15:25 Follow-up Appointment(s) Attends referral and/or follow-up appointment(s) as per care team recommendation( s) Goal not achieved Beronica Villa CCM Information not available 12/18/2023 13:49:08 Effective Coping Manages life events with effective coping methods Goal not achieved Beronica Villa CCM Information not available 12/18/2023 13:49:10 Nutritional Risks Reduction Reports reduction in nutritional risks Goal not achieved Beronica Villa CCM Information not available 10/01/2023 18:15:25 Knowledge of Disease or Condition Demonstrates understanding of disease(s) or condition(s) Goal not achieved Beronica Villa CCM Information not available 12/18/2023 13:49:12 Weight Maintenance Exhibits stable weight with normal fluctuation Goal not achieved Beronica Villa CCM Information not available 11/06/2023 20:58:13 Exercise Regularly Follows a regular exercise regimen or instructed exercise plan as per care team recommendation( s) Goal not achieved Beronica Villa CCM Information not available 12/18/2023 13:49:16 Smoking Cessation Quits smoking Goal not achieved Beronica Villa CCM Information not available 12/18/2023 13:49:18 Lipid Levels Maintains normal lipid levels as defined by care team Goal not achieved Beronica Villa CCM Information not available 11/06/2023 20:58:13 Diet Adherence Follows prescribed or recommended diet Goal not achieved Beronica Villa CCM Information not available 12/18/2023 13:49:22 Blood Pressure Maintains blood pressure goal as defined by care team Goal not achieved Beronica Villa CCM Information not available 12/18/2023 13:49:23 Health Concerns Section Related Observation LastModified by Organization Detai ls LastModified Time None Recorded Concern Status LastModified by Organization Details LastModified Time Hyperlipidemia Active Beronica Villa CCM Not Available 0 11/06/2023 20:57:47 Chronic obstructive lung disease Active Beornica Villa CCM Not Available 10/01/2023 18:0 0:48 Cough Active Beronica Villa CCM Not Available 09/30 18:01:00 Cigarette smoker Active Beronica Allen CCM Not Available 11/06/2023 20:57:24 Essential hypertension Active Beronica Allen CCM Not Deloris ilable 11/06/2023 20:58:25 Advance Directives Directive N: Packet sent Payers Encounter Date Sequence Insurance Name Policy Number Policy Alejandra Covered Member ID Alejandra Member ID Guarantor Name 03/21/2023 1 [facility] (MEDICARE REPLACEMENT/AD VANTAGE - HMO) [id number] Clifford D Hartman [id number] Clifford D Hartman 03/21/2023 2 [place] WHEN MEDICARE OR MEDICARE REPLACEMENT PRIMARY) Clifford Hartman [id number] Clifford D Hartman 10/01/2023 1 [employer] [facility] (MEDICARE REPLACEMENT/AD VANTAGE - HMO) [id number] Clifford D Hartman [id number] Clifford D Hartman 11/06/2023 1 [facility] (MEDICARE REPLACEMENT/AD VANTAGE - HMO) [id number] Clifford D Hartman [id number] Clifford D Hartman 12/12/2023 1 [employer] [facility] (MEDICARE REPLACEMENT/AD VANTAGE - HMO) [id number] Clifford D Hartman [id number] Clifford D Hartman 01/10/2024 1 [facility] (MEDICARE REPLACEMENT/AD VANTAGE - HMO) [id number] Clifford D Hartman [id number] Clifford D Hartman Notes Date Note Type Note Provider Name and Address Organization Details Recorded Time 03/21/2023 text/html 03/21/23: 1. Pt in office with for 4 week f/u on chronic back pain sx. Pt states he is having more trouble with moving around and has been needing to use his cane for support. Pt states he did a deposition and reports they will probably be contacting our office.2. Pt states he has a lot of stress. Reports he just bought a new car and found out son-in-law lost his job last Sunday and they are worried about paying bills. 01/25/23: 1. Pt in office with for 4 week f/u appt. Pt reports [employer] control [employer] will be contacting the office for medical records associated with chronic back pain. Pt and report pain seems to be getting worse and no longer manageable with pain meds, muscle relaxant. Rates pain 8/10 today.2. Pt c/o having stye on lower lid of right eye for the past 2-3 weeks. Pt states that no improvement with normal washing of face. states pt isn't able to tolerate eye gtts.3. Pt c/o having pain in lower back that's radiating down his right leg. states pt has to sit with his back supported all the time. states pt says the pain medications don't work. states pts pain gets so severe she thinks he looks like he's near . States that pain starts in the front and goes all the way through him. Pt states the pain is stabbing and radiates down into his right arm. 12/28/22: 1. Pt in office with for 6 week f/u appt. states she is concerned that pt doesn't do much anymore. Pt states he feels rather depressed and is worried that some of the meds might be causing the depression. Pt states he still rates pain 5/10. Pt states he does manage pain with hydrocodone. States no lending, selling, or borrowing of medication. Pt states he takes only as prescribed. Pt reports pain worsens significantly with increased activity. 11/07/22: 1. Pt in office for routine 4 week f/u on chronic back pain. Pt states he still rates pain 5/10. Pt states he does manage pain with hydrocodone. States no lending, selling, or borrowing of medication. Pt states he takes only as prescribed. Pt reports pain worsens significantly with increased activity. 10/03/22: 1. Pt in office for 4 week f/u appt. Pt states he isn't having the pain shooting down his legs too much anymore, but does periodically still get a numb feeling. Pt states back pain is back to what it was before. Still rates daily pain at 5/10.2. Pt states he had to take a poop pill last night and has had 3 BMs today. 09/05/22: 1. Pt in office for 4 week f/u appt. Pt states he had worsening of low back pain that radiated in to right hip for the past 2 weeks. Pt states pain medication didn't really help. States sx seem better over the past couple of days. Pt states pain was up to 8/10 and he was barely able to leave the house.2. Pt states he needs refill of zolpidem. Pt states it help with sleep, but he's been out for almost a month. 08/11/22: 1. Pt in office for 1 week f/u on medication. Pt brought in all meds to update medication list and discuss what may be causing dizziness. 08/04/22: 1. Pt in office for 4 week f/u appt. Pt reports no changes to back pain. Reports he manages pain with hydrocodone, muscle relaxer, and anti-inflammatory meds. Has been having more back pain with cold weather when he has to be outside. Still rates day-to-day pain at 4-5/10.2. Pt states he has been having some brief episodes of dizziness. States episodes don't last very long, maybe a few seconds. Pt states sx don't prevent normal activity, but pt is concerned that sx have been recurrent.3. Pt states pulmonary provider is going to be upset with him b/c he didn't complete the sleep test. Pt states he hasn't been able to reschedule it b/c he has been trying to manage his 's appts.4. Pt states that he is able to have BMs more regularly lately. States he hasn't only tried the Linzess once, not sure if it worked for him. Still having a lot of gas/bloating. 07/07/22: 1. Pt in office for 4 week f/u appt. Pt states he saw pulmonary doctor and she wants more blood work. Also wants him to see another specialist. Also wants some kind of sleep test.2. Pt reports no changes to back pain. Reports he manages pain with hydrocodone, muscle relaxer, and anti-inflammatory meds. Has been having more back pain with cold weather when he has to be outside. Rates day-to-day pain at 4-5/10.3. Pt states that he is able to have BMs more regularly lately. States he hasn't tried any of the Linzess samples yet.06/09/22: 1. Pt in office for 4 week f/u appt. Pt reports no changes to back pain. Reports he manages pain with hydrocodone, muscle relaxer, and anti-inflammatory meds. Has been having more back pain with cold weather when he has to be outside. Rates day-to-day pain at 4-5/10.2. Pt reports he saw pulmonary provider (Jesus Ferguson) last month and had labs drawn yesterday. States he has a f/u appt on 07/03/22. Pt states he got new inhaler from [facility]. States he only used it for 3 days and quit b/c it made his back and chest hurt more.05/12/22: 1. Pt in office for 4 week f/u appt. Pt states change in back pain. Reports he manages with hydrocodone, muscle relaxer, and anti-inflammatory meds. Usually rates pain 4-5/10, worse in cold weather.2. Pt states he has appt with pulmonary on 05/19/22. Pt states he feels like his breathing is getting worse. Pt states he knows it's b/c of the cigarette smoking, but states he isn't ready/able to quit.04/12/22: 1. Pt in office for 4 week f/u appt. Pt states he feels like his stress is better and he is having better bowel movements.2. Pt states his back pain is still the same. No improvement in over 3 years. Reports it gets worse with cold weather. Takes hydrocodone, muscle relaxer, and anti-inflammatory meds for pain, but still rates pain at 4-5/10.3. Pt states he also feels like his breathing is getting worse. States he knows it's b/c of the cigarette smoking, but not ready/able to quit. Pt states he hasn't rescheduled pulmonary appt b/c normally takes care of those things for him, but she is very ill (lung cancer) and isn't able to manage his appts/meds for him.03/23/22: 1. Pt presents for telehealth video/phone conference. Verbal consent witnessed by Kemi Phelan (MA) and Sergio Mcdaniel (provider).2. Pt presents for problem visit with report of having some bathroom problems . States he believes a lot of it is due to stress (primary caregiver for ) related to 's lung cancer treatment. Pt states he had been going days without having a bowel movement (had chronic diarrhea in the past). States he was finally able to go last night and feels much better.3. Pt requests refill of pain medication for his back.4. Also requesting refill of sleeping medication.03/15/22 : 1. Pt in office with for MWE.2. Pt also presents for 4 week f/u appt regarding chronic back pain sx. Pt states he needs refills of his pain meds for chronic back pain. Pt states no change in back pain. Has been having pain issues for more than 3 years. Pain worsens in cold weather. Has difficulty standing/walking for extended periods of time. Pt reports he takes pain meds as prescribed. Denies any lending, selling, or borrowing of medication. Pt states pain medication reduces pain from 7-8/10 to 4-5/10.3. Pt reports chest wall pain hasn't really changes since last couple of visits. 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 Pt in office with for f/u on pulmonary visit. Pt states he didn't particularly care for the doctor, but states he thinks he was being a bit of an a to the doctor and staff. Pt states he didn't complete the testing that was ordered b/c they told him he would need to come back the next day at 7am and he wasn't able to do so. Pt states he hasn't been using inhalers d/t cost and having trouble using them. Pt states he has been using nebs instead.01/18/22: 1. Pt in office with for f/u on UC visit for chronic back pain. Pt states lower back was hurting so bad that he thought it might be his kidneys. Pt states he went to UC to get them checked out. Pt states not his kidneys, just his back. States he got new prescriptions for medications to help with the pain. States he doesn't feel like the new medications (diclofenac/methoca rbamol) help a little more than what he was already taking.2. Pt states he got the nebulizer and has been using it periodically. Pt states he feels like it does help his breathing some. Pt states he had trouble breathing and chest discomfort yesterday while dealing with [employer] about locking his keys in the car. Pt states he got frustrated. Still having some tightness today. Wants to know what the cxr showed.12/21/21: 1. Pt in office with for 4 week f/u appt. Pt states he needs refills of his pain meds for chronic back pain. Pt states no change in back pain. Has been having pain issues for more than 3 years. Pain worsens in cold weather. Has difficulty standing/walking for extended periods of time.2. Pt states he has been forgetting to use the inhaler. Pt states he keeps forgetting to use the inhaler. Wants to know if it matters what time of day he uses it. States he has only used it a couple of times, isn't sure if it helps or not.3. Pt still c/o having on/off chest pain. Pt states that pain occurs at rest (right upper chest). Does periodically feel like there is a weight on his chest and feels like he doesn't breathe as well as he used to.4. Pt also requests refill of sleeping medication. Pt states he isn't able to sleep w/o the medication.11/23/21: 1. Pt in office for 4 week f/u appt. Pt states his back pain is ongoing.2. Pts states she is concerned about his lungs. Pts states he coughs to the point that pt c/o feeling like there is a brick laying on his chest all the time. states he can hardly breathe, can't walk any distance without huffing/puffing. States he doesn't have the wind for doing the things he normally does. is concerned b/c pts mother of cancer, father also of cancer. Pt c/o having right-sided cp that radiates to his back. No cp today, most recent episode was 4 weeks ago.10/12/21: 1. Pt in office for 4 week f/u appt. Pt states his back pain is ongoing. States he would like to try some of the pain patches he was getting from Dr. Wilson. States those helped some.09/14/21: 1. Patient presenting to the office for follow up on DDD. Need refill in about 1 week on pain medication hydrocodone-acetami nophen. Patient reports continued relief with pain medication - some days better than other days, back pain worse with activity.2. Follow up on insomnia. Patient has been taking 2 zolpidem 5mg tablets nightly, reports doing well with this dosing. Still wakes up occasionally throughout the night, but overall, sleep is reportedly better.07/29/21: 1. Pt in office with for 4 week f/u appt. Pt states his back pain has gotten worse with the cold weather, especially the upper back. Reports he isn't able to stand or walk for more than a few minutes at a time. Pt states he gets a lot of pain and stiffness with sitting too long. States pain is improved with hydrocodone, but isn't fully gone, rates pain 4-5/10 with hydrocodone. Reports that he takes pain medication only as prescribed. Denies any lending, selling, or borrowing of medication.2. States he gets out of breath with activity more often. States he is still smoking. States he sometimes even gets sob when at rest. Not currently using inhalers d/t cost.3. Reports ambien doesn't really help with sleep. States he takes meds at 9pm, but doesn't get to sleep until 1am or later. States he also doesn't really stay asleep.06/16/21: 1. Pt in office with for 4 week f/u appt. Pt states he is still struggling with back pain. Reports pain much worse on cold days. Reports he isn't able to stand or walk for more than a few minutes at a time. Pt states he gets a lot of pain and stiffness with sitting too long. States pain is improved with hydrocodone, but isn't fully gone. Reports that he takes pain medication only as prescribed. Denies any lending, selling, or borrowing of medication.2. Pt states he still isn't getting 90-day supply of zolpidem for insomnia. Pt states he takes it as needed several times per week. Denies any problems or s/e with medication. Sergio Mcdaniel, [facility] [address] [facility], [facility] [address], [place], [address], [place] - [facility] 03/21/2023 19:09:40
--- NOTE | 2024-06-27 07:12 | PM.IMHP ---
H&P: HPI History of Present Illness Date/Time: 06/27/24 07:12 Chief Complaint: shortness of breath Narrative: 63 year old male with past medical history of COPD, hypertension, hyperlipidemia, and BPH who presents to the hospital for shortness of breath and cough. He states that he started to feel unwell about two and a half weeks ago becoming increasingly weak where he was unable to get out of bed. He states he developed a productive cough with greenish/yellow phlegm and shortness of breath that continued to worsen during that time. He notes subjective fevers, chills, and body aches. He used his albuterol inhaler with minimal relief. He denies sick contacts. He denies chest pain, palpitations, nausea/vomiting and abdominal pain. At time of assessment patient states that he is feeling a bit better. He notes that he continues to have a productive cough but the shortness of breath has slightly improved. He continues to deny chest pain, palpitations, nausea/vomiting and abdominal pain. ED workup: CBC with WBC 17.2, H/H 16/48.3, PLT 290. CMP with Na 134 and K 4.3. BUN/Cr 16/1.31. BNP 289. PT/INR 15.2/1.2. ABG: pH 7.480, pCO2 24.9, pO2 69.2, HCO3 18.1 Viral PCR: negative for Flu/COVID/RSV. Blood cultures obtained and pending. Chest CTA showed no pulmonary embolus, no aortic dissection, findings consistent with patient's known interstitial lung disease demonstrating progression since 2020 examination, mediastinal lymphadenopathy, and findings within the interpolar region of the right kidney. Patient given sepsis bolus x1 and started on IV rocephin and azithromycin. Review of Systems Review of Systems: All systems reviewed & are unremarkable except as noted in HPI and below PMFSH Past Medical History Medical History (Updated 06/27/24 @ 13:45 by Marie Watters PA-C) Hyperlipidemia Benign prostate hyperplasia ILD (interstitial lung disease) COPD (chronic obstructive pulmonary disease) Hypertension Surgical History Surgical History (Updated 06/27/24 @ 13:47 by Marie Watters PA-C) History of surgery on lower extremity LLE with plate and screws History of cholecystectomy Family History Family History Mother Lung cancer Type II diabetes mellitus Father Lung cancer Sibling Cerebrovascular accident Social History Social History (Updated 06/27/24 @ 13:48 by Marie Watters PA-C) Social History: Patient lives home alone. No pets. . Code status: Full Smoking packs per day: 1 Smoking cigarettes per day: 20.0 Years smoked: 50 Smoking pack-years: 50.00 Smoking status: Current every day smoker Tobacco type: cigarettes Alcohol intake: never Substance use: current Substance use type: marijuana Last use: 2-3 weeks ago Do You Feel Safe in your Home?: Yes Lack of Transportation: No Lack of Food: Never True Current Housing: I Have Housing Concerned About Future Housing: No Difficulty Paying Gas/Electric Bills: No Difficulty Paying for Meds: No Currently Unemployed: No Education: Grade School Difficulty w/ Childcare or Family Care: No Living arrangements: alone Spiritual care concerns: No Meds Home Medications and Allergies Home Medications ?Medication ?Instructions ?Recorded ?Confirmed ?Type albuterol sulfate 2.5 mg/3 mL 2.5 mg continuous nebulization PRN 01/16/22 06/27/24 History (0.083 %) solution for nebulization PRN difficulty breathing amlodipine 10 mg tablet 10 mg PO DAILY 01/16/22 06/27/24 History diclofenac sodium 50 mg 50 mg PO BID #40 tabs 01/16/22 06/27/24 Rx tablet,delayed release diclofenac sodium 50 mg 50 mg PO DAILY 01/16/22 06/27/24 History tablet,delayed release famotidine 20 mg tablet 20 mg PO BID 01/16/22 06/27/24 History hydrocodone 5 mg-acetaminophen 325 1 tablet PO Q12H 01/16/22 06/27/24 History mg tablet tamsulosin 0.4 mg capsule 0.4 mg PO DAILY 01/16/22 06/27/24 History albuterol sulfate 90 mcg/actuation 1 puff inhalation BID 06/27/24 06/27/24 History aerosol inhaler (Ventolin HFA) atorvastatin 40 mg tablet (Lipitor) 40 mg PO HS 06/27/24 06/27/24 History gabapentin 300 mg capsule 300 mg PO TID 06/27/24 06/27/24 History Allergies Allergy/AdvReac Type Severity Reaction Status Date / Time No Known Allergies Allergy Verified 06/26/24 19:31 Vital Signs Vital Signs - 24 hr 06/26/24 18:55 06/26/24 19:26 06/26/24 19:26 Temperature 98.9 F Pulse Rate 123 H 112 H Respiratory Rate 26 H 18 Blood Pressure 133/67 Pulse Oximetry 94 96 Oxygen Delivery Room Air 06/26/24 19:26 06/26/24 19:28 06/26/24 19:31 Temperature Pulse Rate 115 H 113 H Respiratory Rate 22 H 29 H Blood Pressure 140/86 146/86 H Pulse Oximetry 96 96 96 Oxygen Delivery Room Air 06/26/24 19:35 06/26/24 19:46 06/26/24 20:01 Temperature Pulse Rate 108 H 111 H 122 H Respiratory Rate 22 H 20 26 H Blood Pressure 141/77 H 139/77 Pulse Oximetry 96 100 Oxygen Delivery 06/26/24 20:16 06/26/24 20:16 06/26/24 20:31 Temperature Pulse Rate 112 H 132 H 137 H Respiratory Rate 20 29 H 27 H Blood Pressure 143/71 H 136/78 Pulse Oximetry 98 91 Oxygen Delivery 06/26/24 20:46 06/26/24 21:13 06/26/24 21:16 Temperature Pulse Rate 127 H 127 H 124 H Respiratory Rate 29 H 37 H 26 H Blood Pressure 146/81 H 110/81 130/81 Pulse Oximetry 96 93 91 Oxygen Delivery 06/26/24 21:41 06/26/24 21:52 06/26/24 22:01 Temperature 99.7 F H Pulse Rate 117 H 115 H Respiratory Rate 22 H 29 H Blood Pressure 120/73 122/76 120/77 Pulse Oximetry 99 96 94 Oxygen Delivery 06/26/24 22:07 06/26/24 22:16 06/26/24 22:31 Temperature 99.1 F Pulse Rate 107 H Respiratory Rate 17 Blood Pressure 121/75 128/78 128/76 Pulse Oximetry 95 100 96 Oxygen Delivery 06/26/24 22:32 06/26/24 23:01 06/27/24 00:01 Temperature 99.1 F Pulse Rate 111 H 99 Respiratory Rate 24 H 22 H Blood Pressure 123/75 111/65 Pulse Oximetry 92 95 Oxygen Delivery 06/27/24 02:00 06/27/24 05:00 Temperature 98.4 F 99 F Pulse Rate 91 87 Respiratory Rate 18 20 Blood Pressure 134/64 119/69 Pulse Oximetry 94 93 Oxygen Delivery Exam Narrative: AF HR 87 RR 20 SPO2 93 BP 119/69 General: male in no acute respiratory distress who is nontoxic appearing, lying semi recumbent in bed. HEENT: Normocephalic. Atraumatic. Extraocular movement intact. Sclera clear and anicteric. No facial asymmetry. Neck: Neck was supple. No dominant adenopathy, thyromegaly or masses. 2+ carotid upstrokes without bruits. Chest: Lungs with coarse crackles to auscultation bilaterally. No wheezes. CV: Heart was regular rate and rhythm. S1/S2. No murmurs, gallops, or rubs. Abd: Abdomen was soft. Nontender. Nondistended. Positive bowel sounds. No organomegaly or masses. Ext: No cyanosis, or edema. 2+ DP pulses bilaterally. Neuro: Patient is alert and oriented x4. Strength is 5/5 in both upper and lower extremities. Cranial nerves 2-12 are intact. Speech is clear. Psych: Normal mood and affect. Patient is pleasant and cooperative. Skin: Warm and dry. No rashes noted. H&P: Results Labs Labs: Short CBC 06/26/24 Range/Units 19:30 WBC 17.2 H (4.5-10.0) K/mm3 Hgb 16.0 (14.0-18.0) g/dL Hct 48.3 (42.0-52.0) % Plt Count 290 (150-375) k/mm3 BMP 06/26/24 19:30 Sodium 134 L Potassium 4.3 Chloride 98 Carbon Dioxide 27 BUN 16 Creatinine 1.31 H Glucose 131 H Calcium 9.0 Liver Function 06/26/24 Range/Units 19:30 Total Bilirubin 0.9 (0.2-1.3) mg/dL AST 79 H (17-59) U/L ALT 78 H (6-50) U/L Alkaline Phosphatase 125 (38-126) U/L Albumin 3.6 (3.5-5.1) g/dL 06/26/24 23:22 Puncture Site Right radial ABG pH 7.480 H ABG pCO2 24.9 L ABG pO2 69.2 L ABG PO2/FiO2 Ratio 3.30 ABG HCO3 18.1 L ABG O2 Saturation 95.3 ABG O2 Content 19.8 ABG Base Excess -3.4 A-a Gradient 50.7 Oxyhemoglobin 94.1 Carboxyhemoglobin 0.7 Reduced Hemoglobin 4.9 Total Hemoglobin 15.0 O2 Delivery Device Room air O2 Liters/Min Not Reportable FiO2 21 Impressions Chest CTA 06/26/24 21:55 IMPRESSION: No pulmonary embolus. No aortic dissection. Findings consistent with patient's known interstitial lung disease demonstrating progression since 2019 examination. Mediastinal lymphadenopathy Findings within the interpolar region of the right kidney for which focused ultrasound may be performed nonemergently to evaluate its morphology. Chest X-Ray 06/27/24 11:12 IMPRESSION: 1. Diffuse lung disease, consistent with pneumonia superimposed on chronic lung disease. Renal Ultrasound 06/27/24 11:34 IMPRESSION: 1. 2.6 cm right renal cyst. Otherwise normal kidneys without hydronephrosis. Assessment and Plan Assessment and plan (1) Sepsis: Code(s): A41.9 - Sepsis, unspecified organism Status: Acute Assessment and Plan: Meets SIRS criteria: WBC, HR, RR - lactic acid WNL - s/p 1L sepsis bolus - suspected source: pneumonia - blood cultures drawn on 06/26: pending - UA ordered - see plan below (2) Pneumonia: Code(s): J18.9 - Pneumonia, unspecified organism Status: Acute Assessment and Plan: Chest XR: Diffuse lung disease, consistent with pneumonia superimposed on chronic lung disease. Chest CTA: No pulmonary embolus. No aortic dissection. Findings consistent with patient's known interstitial lung disease demonstrating progression since 2019 examination. Redemonstration of peripheral honeycombing, panlobular emphysema, significant fibrotic change with a bilateral upper lobe predominance. No discrete nodules are appreciated. The cystic lesions within the right upper lobe now demonstrates thickened horne, an interval change. Varicose bronchiectasis is redemonstrated. Bulky calcified lymph nodes are identified within the right pulmonary hilum, unchanged from prior. Soft tissue attenuation foci are present within the bilateral pulmonary elena, possibly hilar lymph nodes minimally increased in size from 2020 examination. Mediastinal lymphadenopathy - Complicating Factors: COPD - started on CAP tx: azithromycin ceftriaxone on 06/26 - CRP elevated at 16.6 - ABG: pH 7.480, pCO2 24.9, pO2 69.2, HCO3 18.1 - Viral PCR: negative for Flu/COVID/RSV - urine for Legionella, urine for pneumococcal antigen, serum mycoplasma IgM and extended respiratory pathogen panel ordered - no supplemental O2 requirement - supportive treatment - Monitor vital signs, I&Os, neuro status and patient is a fall risk - Follow WBC, serum electrolytes, temperature curves and cultures (3) COPD (chronic obstructive pulmonary disease): Code(s): J44.9 - Chronic obstructive pulmonary disease, unspecified Status: Acute Assessment and Plan: Chronic COPD with 50 pack year history, continues to smoke 1 pack/day. No wheezing on exam. Chest CTA: No pulmonary embolus. No aortic dissection. Findings consistent with patient's known interstitial lung disease demonstrating progression since 2020 examination. Redemonstration of peripheral honeycombing, panlobular emphysema, significant fibrotic change with a bilateral upper lobe predominance. No discrete nodules are appreciated. The cystic lesions within the right upper lobe now demonstrates thickened horne, an interval change. Varicose bronchiectasis is redemonstrated. Bulky calcified lymph nodes are identified within the right pulmonary hilum, unchanged from prior. Soft tissue attenuation foci are present within the bilateral pulmonary elena, possibly hilar lymph nodes minimally increased in size from 2020 examination. Mediastinal lymphadenopathy - Bronchodilators and duonebs q6 - Monitor vital signs, I&Os, neuro status and patient is a fall risk - Monitor serum electrolytes, cultures and CBC - Monitor Oxygen saturation, Oxygen via NC; wean oxygen as tolerated, keep SpO2 greater than 88% - Pulmonology consulted, appreciate recommendations suspect bacterial infection and will not give inhaled or systemic steroids at this time check alpha 1 anti trypsin no evidence of hypercarbic respiratory failure (4) ILD (interstitial lung disease): Code(s): J84.9 - Interstitial pulmonary disease, unspecified Status: Acute Assessment and Plan: Chest XR: Diffuse lung disease, consistent with pneumonia superimposed on chronic lung disease. Chest CTA: No pulmonary embolus. No aortic dissection. Findings consistent with patient's known interstitial lung disease demonstrating progression since 2020 examination. Redemonstration of peripheral honeycombing, panlobular emphysema, significant fibrotic change with a bilateral upper lobe predominance. No discrete nodules are appreciated. The cystic lesions within the right upper lobe now demonstrates thickened horne, an interval change. Varicose bronchiectasis is redemonstrated. Bulky calcified lymph nodes are identified within the right pulmonary hilum, unchanged from prior. Soft tissue attenuation foci are present within the bilateral pulmonary elena, possibly hilar lymph nodes minimally increased in size from 2020 examination. Mediastinal lymphadenopathy - Monitor vital signs, I&Os, neuro status and patient is a fall risk - Monitor serum electrolytes, cultures and CBC - Monitor Oxygen saturation, Oxygen via NC; wean oxygen as tolerated, keep SpO2 greater than 88% - Pulmonology consulted, appreciate recommendations CT pattern per pulmonology represents atypical CT pattern of UIP with upper lobe panlobular emphysema. SUSU screen, ANCA screen, RF, anti CCP antibody, hypersensitivity pneumonitis panel, CPK, aldolase level, CRP, ESR, adn myomarker 3 plus profile sent to further evaluate etiology of patients ILD (5) Hypertension: Code(s): I10 - Essential (primary) hypertension Status: Acute Assessment and Plan: Chronic, continue home medications - amlodipine 10 mg daily - monitor, blood pressures remain stable at this time (6) Abnormal finding on imaging: Code(s): R93.89 - Abnormal findings on diagnostic imaging of other specified body structures Status: Acute Assessment and Plan: Chest CTA: Fluid attenuation focus within the interpolar region of the right kidney - Renal US: 2.6 cm right renal cyst. Otherwise normal kidneys without hydronephrosis. Quality VTE Prophylaxis VTE prophylaxis: mechanical ordered Hospitalist MIPS Advance Care Plan I have confirmed that the patient's Advanced Care Plan is present, code status is documented, or surrogate decision maker is listed in patient medical record.: Yes Medication Reconciliation I have utilized all available resources to obtain, update and review the patients current medications (includes all prescriptions, OTC, herbals, cannabis, and nutritional supplements).: Yes
[2024-06-27 07:29] LABS: Basophils Absolute Auto 0.1 K/mm3 (0.0-0.1); Basophils Percent Auto 0.6 % (0.2-1.2); Eosinophils Absolute Auto 0.1 K/mm3 (0-0.3); Eosinophils Percent Auto 0.4 % (0-4.4); Hematocrit 45.9 % (42.0-52.0); Hemoglobin 15.2 g/dL (14.0-18.0); Immature Granulocyte Absolute 0.11 K/mm3 (0.00-0.031); Immature Granulocyte Percent A 0.8 % (0-0.5); Lymphocytes Absolute Auto 1.87 K/mm3 (0.9-3.2); Lymphocytes Percent Auto 13.6 % (18.3-44.2); Mean Corpuscular HGB Conc 33.1 g/dl (32-36); Mean Corpuscular Hemoglobin 27.9 pg (26-34); Mean Corpuscular Volume 84.4 fl (80-100); Mean Platelet Volume 9.4 fl (7.4-10.4); Monocytes Absolute Auto 1.1 K/mm3 (0.1-0.6); Monocytes Percent Auto 7.8 % (2.6-8.5); Neutrophils Absolute Auto 10.5 K/mm3 (1.3-6.7); Neutrophils Percent Auto 76.8 % (45.5-73.1); Platelet Count Result 283 k/mm3 (150-375); Red Blood Count 5.44 M/mm3 (4.6-6.20); Red Cell Distribution Width 14.4 % (11.5-14.5); White Blood Count 13.7 K/mm3 (4.5-10.0)
[2024-06-27 07:48] LABS: Alanine Aminotransferase 77 U/L (6-50); Albumin Level 3.4 g/dL (3.5-5.1); Alkaline Phosphatase 128 U/L (38-126); Anion Gap 10 mmol/L (4-12); Aspartate Amino Transferase 67 U/L (17-59); Bilirubin,Total 0.9 mg/dL (0.2-1.3); Blood Urea Nitrogen 14 mg/dL (9-20); Carbon Dioxide 22 mmol/L (22-30); Chloride 103 mmol/L (98-107); Estimated CRCL calculation 79 ml/min; Estimated Glomerular Filt Rate > 60; Glucose 116 mg/dL (65-110); Sodium 135 mmol/L (137-145)
[2024-06-27 07:57] LABS: CRP 16.6 mg/dL (<1.0)
[2024-06-27 08:07] LABS: Erythrocyte Sedimentation Rate 23 mm/hr (0-20)
[2024-06-27 08:27] LABS: Procalcitonin 1.1 ng/mL
[2024-06-27] MEDS: TAMSULOSIN HCL 0.4 MG CAPSULE PO (09:49)
[2024-06-27] MEDS: amLODIPine BESYLATE 10 MG TABLET PO (09:49)
[2024-06-27] MEDS: GABAPENTIN 300 MG CAPSULE PO ×3 (09:49→17:10)
[2024-06-27] MEDS: FAMOTIDINE 20 MG TABLET PO ×2 (09:49→17:10)
--- NOTE | 2024-06-27 13:03 | P.CONPL_ITS ---
Assessment and Plan Assessment and plan (1) Pneumonia, bacterial: Code(s): J15.9 - Unspecified bacterial pneumonia Status: Acute Assessment and Plan: Patient presents with 2-3 weeks of infectious complaints, leukocytosis, new consolidative infiltrates in his right upper lobe on his CT scan. COVID, influenza, RSV RT PCR studies negative. 06/27/24: Overall the patient tells me he is a little bit better but it is difficult for him to quantitate this. He says his energy is better, his cough is better, his right-sided chest pain is resolved and his phlegm is less voluminous. His white blood cell count is 13.7, his creatinine was 1.07. He is afebrile. His CRP is 16.6, procalcitonin is 1.1. His weight today is 104.5 kg up from admission weight of 103 kg. Patient remains on room air with saturations 93%. Plan: Continue ceftriaxone and azithromycin, day 2. I will send urine for Legionella, urine for pneumococcal antigen, serum mycoplasma IgM and extended respiratory pathogen panel. Discussed with Dyan Watters, will follow with you. (2) COPD (chronic obstructive pulmonary disease): Code(s): J44.9 - Chronic obstructive pulmonary disease, unspecified Status: Acute Assessment and Plan: Patient carries a diagnosis of COPD. Fifty-six pack year tobacco use and currently smoking 1 pack per day, CT scan on 11/05/2017 with apical predominant paraseptal and centrilobular emphysema. He has been on inhalers off and on for 10 years. ABG on room air with pH of 7.4 01/26/2069. 06/27/24: Overall the patient tells me he is a little bit better but it is difficult for him to quantitate this. He says his energy is better, his cough is better, his right-sided chest pain is resolved and his phlegm is less voluminous. His white blood cell count is 13.7, his creatinine was 1.07. He is afebrile. His CRP is 16.6, procalcitonin is 1.1. His weight today is 104.5 kg up from admission weight of 103 kg. Patient remains on room air with saturations 93%. Plan: Currently the patient has no wheezing. He does have some shortness of breath and I will give him a therapeutic trial of bronchodilators with DuoNebs q.6 hours. I suspect he has an active bacterial infection and will not give him inhaled or systemic steroids at this time. I will check an alpha 1 anti trypsin. There is no evidence of hypercarbic respiratory failure. (3) ILD (interstitial lung disease): Code(s): J84.9 - Interstitial pulmonary disease, unspecified Status: Acute Assessment and Plan: regarding his interstitial lung disease the patient is not aware of this diagnosis but has been told he has scarring on the lungs. he does not remember when he was told this or who told him this. For CT scan in our system from 11/05/2017 demonstrates mild peripheral and basilar dependent reticulations and septal thickening in the dependent portions of both lower lung thompson with some honeycombing. There is apical predominant paraseptal and centrilobular emphysema right upper lobe is extensively involved but they are also lesions in the left upper lobe. CT scan on 06/16/2019 shows very minimal progression of his lower lobe reticulations and honeycombing and no changes in his upper lobe paraseptal and centrilobular emphysema. CTA scan of the chest on 06/26/2024 with no pulmonary embolism. Very minimal progression of his lower lobe reticulations and honeycomb mean with continued upper lobe paraseptal and centrilobular emphysema with no change on the left but on the right there are increased infiltrates, thick horne and consolidations with no air-fluid levels. This CT pattern in my opinion represents atypical CT pattern of UIP with upper lobe panlobular emphysema.. Plan: Regarding other etiologies for his interstitial lung disease I will send serologies. I will order a [facility] screen that includes 11 different auto antibodies, an ANCA screen, a rheumatoid factor, anti CCP antibody, hypersensitivity pneumonitis panel, a CPK, an aldolase level, CRP, ESR and myomarker 3 plus profile. History of Present Illness History of Present Illness Consult date: 06/27/24 Chief complaint: Pneumonia/COPD/sepsis Narrative: 06/27/2024: This is a new pulmonary consult for COPD with pneumonia. 63-year-old man with a history of hypertension, hyperlipidemia, BPH, COPD and interstitial lung disease. Is difficult to get an accurate past medical history from the patient as he continues to say I do not remember. He says he was diagnosed with COPD approximately 10 years ago but does not know how that diagnosis was made. He does not remember having PFTs. He has been on and off of inhalers for the last 10 years and does not use them regularly. He smokes 1 pack per day since age 7 for a total of 56 pack years. He was exposed to secondhand smoke from both of his parents and from his until she 1 year ago. He has smoked marijuana and the last was 3-4 weeks ago. He denies any other illicit drugs years. 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 He denies working in the steel mill, coal mining, [employer] work, construction work. regarding his interstitial lung disease the patient is not aware of this diagnosis but has been told he has scarring on the lungs. he does not remember when he was told this or who told him this. For CT scan in our system from 11/05/2017 demonstrates mild peripheral and basilar dependent reticulations and septal thickening in the dependent portions of both lower lung thompson with some honeycombing. There is apical predominant paraseptal and centrilobular emphysema right upper lobe is extensively involved but they are also lesions in the left upper lobe. CT scan on 06/16/2019 shows very minimal progression of his lower lobe reticulations and honeycombing and no changes in his upper lobe paraseptal and centrilobular emphysema. at baseline the patient tells me 1 year ago he could walk half a mi. after his a year ago he has had a steady decline in his health and currently states he can walk 1 block. He is a current smoker 1 pack per day. He has chronic cough with some some yellow to green phlegm production. 06/26/24: Over the last 2-3 weeks he has developed fatigue, worsening cough, subjective feelings of fever, shortness of breath, aches, intermittent wheezing and some chest pains. This has progressively gotten worse and he presented to the emergency room on 06/26/2024. in the emergency room his blood pressure is 133/67, heart rate 123, respiratory rate 26, room air saturations 94%. White blood cell count 17.2, creatinine 1.31, BNP 289, COVID influenza and RSV RT PCR studies negative. Rest room air blood gas 7.48/58/69. CTA scan of the chest on 06/26/2024 with no pulmonary embolism. Very minimal progression of his lower lobe reticulations and honeycomb mean with continued upper lobe paraseptal and centrilobular emphysema with no change on the left but on the right there are increased infiltrates, thick horne and consolidations with no air-fluid levels. Patient was started on ceftriaxone and azithromycin. 06/27/24: Overall the patient tells me he is a little bit better but it is difficult for him to quantitate this. He says his energy is better, his cough is better, his right-sided chest pain is resolved and his phlegm is less voluminous. His white blood cell count is 13.7, his creatinine was 1.07. He is afebrile. His CRP is 16.6, procalcitonin is 1.1. His weight today is 104.5 kg up from admission weight of 103 kg. Patient remains on room air with saturations 93%. DATA: EXAMINATION: CTA chest PE protocol INDICATION: Shortness of breath and tachycardia. Pulmonary embolus suspected clinically COMPARISON: Reference is made to a CT examination of the chest dated 06/16/2019 FINDINGS: No filling defect is identified within the main or proximal pulmonary arteries. The main pulmonary artery is not enlarged. The thoracic aorta is of normal caliber without dissection. Redemonstration of peripheral honeycombing, panlobular emphysema, significant fibrotic change with a bilateral upper lobe predominance. No discrete nodules are appreciated. The cystic lesions within the right upper lobe now demonstrates thickened horne, an interval change. Varicose bronchiectasis is redemonstrated. Bulky calcified lymph nodes are identified within the right pulmonary hilum, unchanged from prior. Soft tissue attenuation foci are present within the bilateral pulmonary elena, possibly hilar lymph nodes minimally increased in size from 2020 examination. Multiple lymph nodes are redemonstrated within the mediastinum. The largest is within the subcarinal region measuring 16 mm in short axis dimension (increased from prior when it measured 10 mm). No acute compression fracture is present within the thoracic spine. No displaced rib fracture is noted. The heart is of normal size, without pericardial effusion. Within the upper abdomen: Small hiatal hernia is present The gallbladder is not visualized, presumably surgically absent. The bilateral adrenal glands are unremarkable. Fluid attenuation focus within the interpolar region of the right kidney, not included on the previous examination for which focused ultrasound may be performed to evaluate its morphology. IMPRESSION: No pulmonary embolus. No aortic dissection. Findings consistent with patient's known interstitial lung disease demonstrating progression since 2019 examination. Mediastinal lymphadenopathy Findings within the interpolar region of the right kidney for which focused ultrasound may be performed nonemergently to evaluate its morphology. 06/16/2019 EXAMINATION: CT lung screening INDICATION: Personal history of nicotine dependence. FINDINGS: Again scattered regions of peripheral honeycombing, emphysema, some fibrotic changes with upper lobe predominance. No suspicious focal nodules. Tracheobronchial tree is patent. Precarinal lymph node has decreased in size, upper limits of normal. There are no pleural or pericardial effusions. There is no pneumothorax. Heart normal in size. There is mild coronary arterial calcification, arterial sclerosis. Upper abdomen is unremarkable. There is thoracic spondylosis without osteoblastic or osteolytic lesions identified. IMPRESSION: Lung-RADS category 1, negative (<1%chance of malignancy); recommend continued LDCT screening in 1 year. Review of Systems 2 Constitutional: Constitutional: Reports no additional constitutional complaints Eyes: Eyes: Reports no additional eye complaints ENT: Reports system reviewed and no additional complaints, except as documented Cardiovascular: Cardiovascular: Reports no additional cardiovascular complaints Respiratory: Respiratory: Reports no additional respiratory complaints Gastrointestinal: Gastrointestinal: Reports no additional gastrointestinal complaints Musculoskeletal: Musculoskeletal: Reports no additional musculoskeletal complaints Neurologic: Reports system reviewed and no additional complaints, except as documented Psychiatric: Psychiatric: Reports no additional psychiatric complaints Endocrine: Endocrine: Reports no additional endocrine complaints Hematologic/Lymphatic: Hematologic/Lymphatic: Reports no additional hematologic/lymphatic complaints Allergic/Immunologic: Allergic/Immunologic: Reports no additional allergic/immunologic complaints [facility] Family History Family History (Updated 06/27/24 @ 03:26 by Chica Rodriguez RN) Mother Lung cancer Type II diabetes mellitus Father Lung cancer Sibling Cerebrovascular accident Social History Social History Smoking packs per day: 1 Smoking cigarettes per day: 20.0 Smoking status: Current every day smoker Tobacco type: cigarettes Alcohol intake: never Substance use: former Substance use type: marijuana Do You Feel Safe in your Home?: Yes Lack of Transportation: No Lack of Food: Never True Current Housing: I Have Housing Concerned About Future Housing: No Difficulty Paying Gas/Electric Bills: No Difficulty Paying for Meds: No Currently Unemployed: No Education: Grade School Difficulty w/ Childcare or Family Care: No Spiritual care concerns: No Meds Home Medications and Allergies Home Medications ?Medication ?Instructions ?Recorded ?Confirmed ?Type albuterol sulfate 2.5 mg/3 mL 2.5 mg continuous nebulization PRN 01/16/22 06/27/24 History (0.083 %) solution for nebulization PRN difficulty breathing amlodipine 10 mg tablet 10 mg PO DAILY 01/16/22 06/27/24 History diclofenac sodium 50 mg 50 mg PO BID #40 tabs 01/16/22 06/27/24 Rx tablet,delayed release diclofenac sodium 50 mg 50 mg PO DAILY 01/16/22 06/27/24 History tablet,delayed release famotidine 20 mg tablet 20 mg PO BID 01/16/22 06/27/24 History hydrocodone 5 mg-acetaminophen 325 1 tablet PO Q12H 01/16/22 06/27/24 History mg tablet tamsulosin 0.4 mg capsule 0.4 mg PO DAILY 01/16/22 06/27/24 History albuterol sulfate 90 mcg/actuation 1 puff inhalation BID 06/27/24 06/27/24 History aerosol inhaler (Ventolin HFA) atorvastatin 40 mg tablet (Lipitor) 40 mg PO HS 06/27/24 06/27/24 History gabapentin 300 mg capsule 300 mg PO TID 06/27/24 06/27/24 History Allergies Allergy/AdvReac Type Severity Reaction Status Date / Time No Known Allergies Allergy Verified 06/26/24 19:31 Vital Signs Vital Signs - 24 hr 06/26/24 18:55 06/26/24 19:26 06/26/24 19:26 Temperature 37.2 C Pulse Rate 123 H 112 H Respiratory Rate 26 H 18 Blood Pressure 133/67 Pulse Oximetry 94 96 Oxygen Delivery Room Air 06/26/24 19:26 06/26/24 19:28 06/26/24 19:31 Temperature Pulse Rate 115 H 113 H Respiratory Rate 22 H 29 H Blood Pressure 140/86 146/86 H Pulse Oximetry 96 96 96 Oxygen Delivery Room Air 06/26/24 19:35 06/26/24 19:46 06/26/24 20:01 Temperature Pulse Rate 108 H 111 H 122 H Respiratory Rate 22 H 20 26 H Blood Pressure 141/77 H 139/77 Pulse Oximetry 96 100 Oxygen Delivery 06/26/24 20:16 06/26/24 20:16 06/26/24 20:31 Temperature Pulse Rate 112 H 132 H 137 H Respiratory Rate 20 29 H 27 H Blood Pressure 143/71 H 136/78 Pulse Oximetry 98 91 Oxygen Delivery 06/26/24 20:46 06/26/24 21:13 06/26/24 21:16 Temperature Pulse Rate 127 H 127 H 124 H Respiratory Rate 29 H 37 H 26 H Blood Pressure 146/81 H 110/81 130/81 Pulse Oximetry 96 93 91 Oxygen Delivery 06/26/24 21:41 06/26/24 21:52 06/26/24 22:01 Temperature 37.6 C H Pulse Rate 117 H 115 H Respiratory Rate 22 H 29 H Blood Pressure 120/73 122/76 120/77 Pulse Oximetry 99 96 94 Oxygen Delivery 06/26/24 22:07 06/26/24 22:16 06/26/24 22:31 Temperature 37.3 C Pulse Rate 107 H Respiratory Rate 17 Blood Pressure 121/75 128/78 128/76 Pulse Oximetry 95 100 96 Oxygen Delivery 06/26/24 22:32 06/26/24 23:01 06/27/24 00:01 Temperature 37.3 C Pulse Rate 111 H 99 Respiratory Rate 24 H 22 H Blood Pressure 123/75 111/65 Pulse Oximetry 92 95 Oxygen Delivery 06/27/24 02:00 06/27/24 05:00 06/27/24 08:00 Temperature 36.9 C 37.2 C Pulse Rate 91 87 Respiratory Rate 18 20 Blood Pressure 134/64 119/69 Pulse Oximetry 94 93 Oxygen Delivery Room Air Exam 2 Const: General: cooperative, healthy appearing and comfortable O rientation/consciousness: oriented to person, oriented to place and oriented to time HENMT: Head: normal to inspection Ears: hearing grossly normal bilaterally Eyes: General: appearance normal, both eyes and all related structures Neck: Neck: normal visual inspection Chest: Chest palpation & inspection: normal inspection of the chest Resp: Effort & Inspection: normal respiratory effort and able to speak in complete sentences Auscultation: crackles, no rales, no rhonchi, no wheezes and lung sounds not diminished Cardio: Jugular venous distension: no JVD GI: Inspection: normal to inspection GI Palp: No abdominal tenderness Skin: General skin exam: normal color Neuro: General: oriented to person, oriented to place and oriented to time Extrem: General: normal to inspection and edema Psych: Appearance: grossly normal Results Laboratory Findings 06/27/24 06:41 06/27/24 06:41 ABG, PT/INR, D-dimer: ABG ABG pH 7.480 (7.350-7.450) H 06/26/24 23:22 ABG pCO2 24.9 mmHg (35.0-45.0) L 06/26/24 23:22 ABG pO2 69.2 mmHg (80.0-100.0) L 06/26/24 23:22 ABG O2 Saturation 95.3 % (95.0-100.0) 06/26/24 23:22 PT/INR, D-dimer PT 15.2 Seconds (11.1-14.7) H 06/26/24 19:30 INR 1.2 06/26/24 19:30 Abnormal lab findings: Abnormal Labs 06/26/24 06/26/24 06/27/24 19:30 23:22 06:41 WBC 17.2 H 13.7 H Immature Gran % (Auto) 0.8 H 0.8 H Neut % (Auto) 83.1 H 76.8 H Lymph % (Auto) 8.7 L 13.6 L Mower # (Auto) 1.2 H 1.1 H Abs Immat Gran (auto) 0.14 H 0.11 H Absolute Neuts (auto) 14.2 H 10.5 H ESR 23 H PT 15.2 H ABG pH 7.480 H ABG pCO2 24.9 L ABG pO2 69.2 L ABG HCO3 18.1 L Sodium 134 L 135 L Creatinine 1.31 H Estimated GFR 55 L Glucose 131 H 116 H AST 79 H 67 H ALT 78 H 77 H Alkaline Phosphatase 128 H C-Reactive Protein 16.6 H NT-Pro-B Natriuret Pep 289 H Albumin 3.4 L Diagnostic Findings Additional studies: ITS Impressions Chest CTA 06/26/24 21:55 IMPRESSION: No pulmonary embolus. No aortic dissection. Findings consistent with patient's known interstitial lung disease demonstrating progression since 2020 examination. Mediastinal lymphadenopathy Findings within the interpolar region of the right kidney for which focused ultrasound may be performed nonemergently to evaluate its morphology. Chest X-Ray 06/27/24 11:12 IMPRESSION: 1. Diffuse lung disease, consistent with pneumonia superimposed on chronic lung disease. Renal Ultrasound 06/27/24 11:34 IMPRESSION: 1. 2.6 cm right renal cyst. Otherwise normal kidneys without hydronephrosis.
[2024-06-27 16:41] LABS: Add Urine Microscopic? NO; Appearance Urine Clear (Clear); Bilirubin Urine Negative (Negative); Blood Urine Negative (Negative); Color Urine Yellow (Yellow); Glucose Urine UA Negative (Negative); Ketones Urine Negative (Negative); Leukocyte Esterase Ur Negative LEU/UL (Negative); Nitrate Urine Negative (Negative); Protein Urine Negative (Negative); Specific Grav Ur 1.014 (1.001-1.035); Urobilinogen Urine 0.2 mg/dL (<2.0); pH Urine 5.5 (5.0-9.0)
[2024-06-27] MEDS: IPRATROPIUM 0.5 MG/ALBUTEROL SULFATE 2.5 MG AMPUL.NEB 3 ML INHALATION (20:38)
[2024-06-27] MEDS: ATORVASTATIN 40 MG TABLET PO (21:34)
[2024-06-27] MEDS: AZITHROMYCIN 500 MG/NS 250 ML 500 MG/250 ML BAG 250 MG IVPB (22:11)
[2024-06-28] VITALS (12 sets, daily range): BP systolic 122–135; BP diastolic 63–76; PULSE 80–92; RESP 18–20; TEMP 36.5–36.9; O2SAT 91–99
[2024-06-28] MEDS: IPRATROPIUM 0.5 MG/ALBUTEROL SULFATE 2.5 MG AMPUL.NEB 3 ML INHALATION ×4 (02:33→20:32)
[2024-06-28] MEDS: HYDROcodone/acetaminophen (*CRX) 5-325 MG TABLET 1 TAB PO ×2 (05:02→20:56)
[2024-06-28 06:56] LABS: Basophils Absolute Auto 0.1 K/mm3 (0.0-0.1); Basophils Percent Auto 0.9 % (0.2-1.2); Eosinophils Absolute Auto 0.1 K/mm3 (0-0.3); Eosinophils Percent Auto 1.3 % (0-4.4); Hematocrit 44.9 % (42.0-52.0); Hemoglobin 14.8 g/dL (14.0-18.0); Immature Granulocyte Absolute 0.14 K/mm3 (0.00-0.031); Immature Granulocyte Percent A 1.4 % (0-0.5); Lymphocytes Absolute Auto 2.16 K/mm3 (0.9-3.2); Lymphocytes Percent Auto 21.7 % (18.3-44.2); Mean Corpuscular Hemoglobin 28.2 pg (26-34); Mean Corpuscular Volume 85.5 fl (80-100); Monocytes Absolute Auto 0.8 K/mm3 (0.1-0.6); Monocytes Percent Auto 8.1 % (2.6-8.5); Neutrophils Absolute Auto 6.6 K/mm3 (1.3-6.7); Neutrophils Percent Auto 66.6 % (45.5-73.1); Platelet Count Result 288 k/mm3 (150-375); Red Blood Count 5.25 M/mm3 (4.6-6.20); Red Cell Distribution Width 14.4 % (11.5-14.5); White Blood Count 9.9 K/mm3 (4.5-10.0)
[2024-06-28 07:08] LABS: Alanine Aminotransferase 76 U/L (6-50); Albumin Level 3.2 g/dL (3.5-5.1); Alkaline Phosphatase 105 U/L (38-126); Anion Gap 9 mmol/L (4-12); Aspartate Amino Transferase 57 U/L (17-59); Bilirubin,Total 0.6 mg/dL (0.2-1.3); Blood Urea Nitrogen 14 mg/dL (9-20); Calcium 8.9 mg/dL (8.4-10.2); Carbon Dioxide 22 mmol/L (22-30); Chloride 102 mmol/L (98-107); Creatine Kinase 65 U/L (55-170); Estimated CRCL calculation 83 ml/min; Estimated Glomerular Filt Rate > 60; Glucose 106 mg/dL (65-110); Magnesium 2.1 mg/dL (1.6-2.3); Sodium 133 mmol/L (137-145)
[2024-06-28 07:26] LABS: CRP 11.4 mg/dL (<1.0)
[2024-06-28 07:37] LABS: Erythrocyte Sedimentation Rate 36 mm/hr (0-20)
[2024-06-28 07:40] LABS: Procalcitonin 0.7 ng/mL
[2024-06-28 07:54] LABS: Rheumatoid Factor < 12.0 IU/ML (<12)
[2024-06-28] MEDS: TAMSULOSIN HCL 0.4 MG CAPSULE PO (08:50)
[2024-06-28] MEDS: GABAPENTIN 300 MG CAPSULE PO ×3 (08:50→16:15)
[2024-06-28] MEDS: FAMOTIDINE 20 MG TABLET PO ×2 (08:50→16:15)
[2024-06-28] MEDS: amLODIPine BESYLATE 10 MG TABLET PO (08:50)
--- NOTE | 2024-06-28 09:30 | P.PNPL_ITS ---
Progress Note: A&P Assessment and Plan (1) Pneumonia, bacterial: Code(s): J15.9 - Unspecified bacterial pneumonia Status: Acute Assessment and Plan: Patient presents with 2-3 weeks of infectious complaints, leukocytosis, new consolidative infiltrates in his right upper lobe on his CT scan. COVID, influenza, RSV RT PCR studies negative. 06/27/24: Overall the patient tells me he is a little bit better but it is difficult for him to quantitate this. He says his energy is better, his cough is better, his right-sided chest pain is resolved and his phlegm is less voluminous. His white blood cell count is 13.7, his creatinine was 1.07. He is afebrile. His CRP is 16.6, procalcitonin is 1.1. His weight today is 104.5 kg up from admission weight of 103 kg. Patient remains on room air with saturat ions 93%. Plan: Continue ceftriaxone and azithromycin, day 2. I will send urine for Legionella, urine for pneumococcal antigen, serum mycoplasma IgM and extended respiratory pathogen panel. 06/28/24: Patient tells me is a little bit better but he can not quantify this. He says he 5 still feels fatigued. He says at rest he is breathing fine. He walked to the bathroom and stated that he was breathing fine when he walked to the bathroom. He still has a cough with some yellow green phlegm. He is afebrile since 06/26 at 21:52. he states the breathing pain in his upper back is now gone. He complains of chronic lower back pain. His room air saturations are 94%. His white blood cell count is 9.9, his creatinine is 1.01, his procalcitonin is decreased from 1.1-0.7. Chest x-ray today shows no change in his right upper lobe infiltrate and diffuse interstitial infiltrates. He is getting DuoNebs now and he states he notices no difference. Plan: Patient continues to improve, Afebrile, leukocytosis has resolved, chest x-ray with no change, remains on room air. Continue ceftriaxone and azithromycin, day 3. He says he has some minimal difficulty expectorating his phlegm and I will add guaifenesin 1200 mg p.o. b.i.d. and a Cornet flutter valve. Discussed with Iban Reagan, will follow with you. (2) COPD (chronic obstructive pulmonary disease): Code(s): J44.9 - Chronic obstructive pulmonary disease, unspecified Status: Acute Assessment and Plan: Patient carries a diagnosis of COPD. Fifty-six pack year tobacco use and currently smoking 1 pack per day, CT scan on 11/05/2017 with apical predominant paraseptal and centrilobular emphysema. He has been on inhalers off and on for 10 years. ABG on room air with pH of 7.. On admission with a pneumonia his white blood cell count was 17.2 with 0.3% eosinophils=51.6/uL. 06/27/24: Overall the patient tells me he is a little bit better but it is difficult for him to quantitate this. He says his energy is better, his cough is better, his right-sided chest pain is resolved and his phlegm is less voluminous. His white blood cell count is 13.7, his creatinine was 1.07. He is afebrile. His CRP is 16.6, procalcitonin is 1.1. His weight today is 104.5 kg up from admission weight of 103 kg. Patient remains on room air with saturations 93%. Plan: Currently the patient has no wheezing. He does have some shortness of breath and I will give him a therapeutic trial of bronchodilators with DuoNebs q.6 hours. I suspect he has an active bacterial infection and will not give him inhaled or systemic steroids at this time. I will check an alpha 1 anti trypsin. There is no evidence of hypercarbic respiratory failure. 06/28/24: no wheezing. Clinically improving. Minimal subjective improvement with DuoNebs. Plan: Continue DuoNebs q.6. no need for inhaled or systemic steroids at this time. (3) ILD (interstitial lung disease): Code(s): J84.9 - Interstitial pulmonary disease, unspecified Status: Acute Assessment and Plan: regarding his interstitial lung disease the patient is not aware of this diagnosis but has been told he has scarring on the lungs. he does not remember when he was told this or who told him this. For CT scan in our system from 11/05/2017 demonstrates mild peripheral and basilar dependent reticulations and septal thickening in the dependent portions of both lower lung thompson with some honeycombing. There is apical predominant paraseptal and centrilobular emphysema right upper lobe is extensively involved but they are also lesions in the left upper lobe. CT scan on 06/16/2019 shows very minimal progression of his lower lobe reticulations and honeycombing and no changes in his upper lobe paraseptal and centrilobular emphysema. CTA scan of the chest on 06/26/2024 with no pulmonary embolism. Very minimal progression of his lower lobe reticulations and honeycomb mean with continued upper lobe paraseptal and centrilobular emphysema with no change on the left but on the right there are increased infiltrates, thick horne and consolidations with no air-fluid levels. This CT pattern in my opinion represents a typical CT pattern of UIP with upper lobe panlobular emphysema.. Plan: Regarding other etiologies for his interstitial lung disease I will send serologies. I will order a SUSU screen that includes 11 different auto antibodies, an ANCA screen, a rheumatoid factor, anti CCP antibody, hypersensitivity pneumonitis panel, a CPK, an aldolase level, CRP, ESR and myomarker 3 plus profile. 06/28/24: clinically improved. Rheumatoid factor less than 12, CPK 65. Plan: Await remaining serologies. (4) Daytime hypersomnia: Code(s): G47.10 - Hypersomnia, unspecified Status: Acute Assessment and Plan: Patient states he had a sleep study 10 years ago but does not know the results he was tried on auto PAP 5 to 20 last night and tolerated this for few hours but then his mouth was dry and he requested to take it off. He is not sure if he slept any better with the auto PAP. At this time will discontinue auto PAP and once he is clinically better will do overnight oximetry on room air to assess his oxygenation at night. If he has a sleep-related breathing disorder he said he would try machine with a nasal mask only. I would not treat him in the hospital with PAP until we have further defined whether not he has a sleep- related breathing disorder. Eempiric treatment with PAP will not treat any central related apneas (if he has them) and could provoke treatment related central apneas which would not be treated with PAP. He will need an outpatient sleep study to assess him for sleep-related breathing disorder. Plan: will monitor patient for nocturnal desaturations and apply supplemental oxygen if needed. Subjective Date/time seen: 06/28/24 09:30 Interval history: 06/27/2024: This is a new pulmonary consult for COPD with pneumonia. 63-year-old man with a history of hypertension, hyperlipidemia, BPH, COPD and interstitial lung disease. Is difficult to get an accurate past medical history from the patient as he continues to say I do not remember. He says he was diagnosed with COPD approximately 10 years ago but does not know how that diagnosis was made. He does not remember having PFTs. He has been on and off of inhalers for the last 10 years and does not use them regularly. He smokes 1 pack per day since age 7 for a total of 56 pack years. He was exposed to secondhand smoke from both of his parents and from his until she 1 year ago. He has smoked marijuana and the last was 3-4 weeks ago. He denies any other illicit drugs years. 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 He denies working in the steel mill, coal mining, [employer] work, construction work. regarding his interstitial lung disease the patient is not aware of this diagnosis but has been told he has scarring on the lungs. he does not remember when he was told this or who told him this. For CT scan in our system from 11/05/2017 demonstrates mild peripheral and basilar dependent reticulations and septal thickening in the dependent portions of both lower lung thompson with some honeycombing. There is apical predominant paraseptal and centrilobular emphysema right upper lobe is extensively involved but they are also lesions in the left upper lobe. CT scan on 06/16/2019 shows very minimal progression of his lower lobe reticulations and honeycombing and no changes in his upper lobe paraseptal and centrilobular emphysema. Study maybe 10 years. He thinks this was done in [place] or [place]. He does not remember what the results were and he does not remember being told that he needs any machine with a mask to help him breathe at night. At baseline the patient tells me 1 year ago he could walk half a mi. after his a year ago he has had a steady decline in his health and currently states he can walk 1 block. He is a current smoker 1 pack per day. He has chronic cough with some some yellow to green phlegm production. 1/23/25: Over the last 2-3 weeks he has developed fatigue, worsening cough, subjective feelings of fever, shortness of breath, aches, intermittent wheezing and some chest pains. This has progressively gotten worse and he presented to the emergency room on 06/26/2024. in the emergency room his blood pressure is 133/67, heart rate 123, respiratory rate 26, room air saturations 94%. White blood cell count 17.2, creatinine 1.31, BNP 289, COVID influenza and RSV RT PCR studies negative. Rest room air blood gas 7.48/58/69. CTA scan of the chest on 06/26/2024 with no pulmonary embolism. Very minimal progression of his lower lobe reticulations and honeycomb mean with continued upper lobe paraseptal and centrilobular emphysema with no change on the left but on the right there are increased infiltrates, thick horne and consolidations with no air-fluid levels. Patient was started on ceftriaxone and azithromycin. 06/27/24: Overall the patient tells me he is a little bit better but it is difficult for him to quantitate this. He says his energy is better, his cough is better, his right-sided chest pain is resolved and his phlegm is less voluminous. His white blood cell count is 13.7, his creatinine was 1.07. He is afebrile. His CRP is 16.6, procalcitonin is 1.1. His weight today is 104.5 kg up from admission weight of 103 kg. Patient remains on room air with saturations 93%. 06/28/24: Patient tells me is a little bit better but he can not quantify this. He says he 5 still feels fatigued. He says at rest he is breathing fine. He walked to the bathroom and stated that he was breathing fine when he walked to the bathroom. He still has a cough with some yellow green phlegm. He is afebrile since 06/26 at 21:52. he states the breathing pain in his upper back is now gone. He complains of chronic lower back pain. His room air saturations are 94%. His white blood cell count is 9.9, his creatinine is 1.01, his procalcitonin is decreased from 1.1-0.7. Chest x-ray today shows no change in his right upper lobe infiltrate and diffuse interstitial infiltrates. He is getting DuoNebs now and he states he notices no difference. DATA: EXAMINATION: CTA chest PE protocol INDICATION: Shortness of breath and tachycardia. Pulmonary embolus suspected clinically COMPARISON: Reference is made to a CT examination of the chest dated 06/16/2019 FINDINGS: No filling defect is identified within the main or proximal pulmonary arteries. The main pulmonary artery is not enlarged. The thoracic aorta is of normal caliber without dissection. Redemonstration of peripheral honeycombing, panlobular emphysema, significant fibrotic change with a bilateral upper lobe predominance. No discrete nodules are appreciated. The cystic lesions within the right upper lobe now demonstrates thickened horne, an interval change. Varicose bronchiectasis is redemonstrated. Bulky calcified lymph nodes are identified within the right pulmonary hilum, unchanged from prior. Soft tissue attenuation foci are present within the bilateral pulmonary elena, possibly hilar lymph nodes minimally increased in size from 2020 examination. Multiple lymph nodes are redemonstrated within the mediastinum. The largest is within the subcarinal region measuring 16 mm in short axis dimension (increased from prior when it measured 10 mm). No acute compression fracture is present within the thoracic spine. No displaced rib fracture is noted. The heart is of normal size, without pericardial effusion. Within the upper abdomen: Small hiatal hernia is present The gallbladder is not visualized, presumably surgically absent. The bilateral adrenal glands are unremarkable. Fluid attenuation focus within the interpolar region of the right kidney, not included on the previous examination for which focused ultrasound may be performed to evaluate its morphology. IMPRESSION: No pulmonary embolus. No aortic dissection. Findings consistent with patient's known interstitial lung disease demonstrating progression since 2020 examination. Mediastinal lymphadenopathy Findings within the interpolar region of the right kidney for which focused ultrasound may be performed nonemergently to evaluate its morphology. 06/16/2019 EXAMINATION: CT lung screening INDICATION: Personal history of nicotine dependence. FINDINGS: Again scattered regions of peripheral honeycombing, emphysema, some fibrotic changes with upper lobe predominance. No suspicious focal nodules. Tracheobronchial tree is patent. Precarinal lymph node has decreased in size, upper limits of normal. There are no pleural or pericardial effusions. There is no pneumothorax. Heart normal in size. There is mild coronary arterial calcification, arterial sclerosis. Upper abdomen is unremarkable. There is thoracic spondylosis without osteoblastic or osteolytic lesions identified. IMPRESSION: Lung-RADS category 1, negative (<1%chance of malignancy); recommend continued LDCT screening in 1 year. Review of Systems Constitutional: Constitutional: Reports no additional constitutional complaints Eyes: Eyes: Reports no additional eye complaints ENT: Reports system reviewed and no additional complaints, except as documented Cardiovascular: Cardiovascular: Reports no additional cardiovascular complaints Respiratory: Respiratory: Reports no additional respiratory complaints Gastrointestinal: Gastrointestinal: Reports no additional gastrointestinal complaints Musculoskeletal: Musculoskeletal: Reports no additional musculoskeletal complaints Neurologic: Reports system reviewed and no additional complaints, except as documented Psychiatric: Psychiatric: Reports no additional psychiatric complaints Endocrine: Endocrine: Reports no additional endocrine complaints Hematologic/Lymphatic: Hematologic/Lymphatic: Reports no additional hematologic/lymphatic complaints Allergic/Immunologic: Allergic/Immunologic: Reports no additional allergic/immunologic complaints Exam Const: General: cooperative, healthy appearing and comfortable Orientation/consciousness: oriented to person, oriented to place and oriented to time HENMT: Head: normal to inspection Ears: hearing grossly normal bilaterally Eyes: General: appearance normal, both eyes and all related structures Neck: Neck: normal visual inspection Chest: Chest palpation & inspection: normal inspection of the chest Resp: Effort & Inspection: normal respiratory effort and able to speak in complete sentences Auscultation: crackles, no rales, no rhonchi, no wheezes and lung sounds not diminished Other: Improved basilar crackles Cardio: Jugular venous distension: no JVD GI: Inspection: normal to inspection Skin: General skin exam: normal color Other: clubbed upper extremities. Neuro: General: oriented to person, oriented to place and oriented to time Extrem: General: normal to inspection and edema Psych: Appearance: grossly normal Objective Data Vital Signs Vital Signs: Vital Signs - 24 hr 06/27/24 16:00 06/27/24 20:00 06/27/24 20:05 Temperature 36.7 C 36.6 C Pulse Rate 94 91 Respiratory Rate 22 H 18 Blood Pressure 130/75 133/78 Pulse Oximetry 94 92 Oxygen Delivery Room Air 06/27/24 20:38 06/27/24 20:38 06/27/24 20:47 Temperature Pulse Rate 83 85 Respiratory Rate 20 20 Blood Pressure Pulse Oximetry 94 Oxygen Delivery Room Air 06/27/24 21:35 06/27/24 21:40 06/28/24 02:35 Temperature Pulse Rate 85 80 Respiratory Rate 22 H 18 Blood Pressure Pulse Oximetry 95 Oxygen Delivery Autopap CPAP 06/28/24 02:43 06/28/24 04:35 06/28/24 07:00 Temperature 36.7 C Pulse Rate 83 90 80 Respiratory Rate 18 20 18 Blood Pressure 128/63 Pulse Oximetry 92 91 Oxygen Delivery Room Air 06/28/24 07:00 06/28/24 07:10 06/28/24 08:00 Temperature Pulse Rate 80 82 Respiratory Rate 18 18 Blood Pressure Pulse Oximetry Oxygen Delivery Room Air Intake/Output Intake/Output: Intake & Output 06/25/24 06/26/24 06/27/24 06/28/24 23:59 23:59 23:59 23:59 Intake Total 1300 1317 1100 Output Total 400 Balance 5451 252 0215 Meds/Results Medications: Active Medications Generic Name Dose Route Start Last Admin Trade Name Freq PRN Reason Stop Dose Admin Acetaminophen 650 mg 06/27/24 14:09 Acetaminophen 325 Mg Tablet PO Q4H PRN Mild Pain (1-3) or Fever Hydrocodone Bitart/Acetaminophen 1 tab 06/28/24 04:51 06/28/24 05:02 Hydrocodone/Acetaminophen (*Crx) 5-325 Mg Tablet PO 1 tab Q6H PRN Administration Pain Rated 4-6 Albuterol/Ipratropium 3 ml 06/27/24 14:00 06/28/24 06:59 Ipratropium 0.5 Mg/Albuterol Sulfate 2.5 Mg Ampul.Neb 3 Ml INHALATION 3 ml Q6HRT SHANNAN Administration Amlodipine Besylate 10 mg 06/27/24 09:00 06/28/24 08:50 Amlodipine Besylate 10 Mg Tablet PO 10 mg DAILY SHANNAN Administration Atorvastatin Calcium 40 mg 06/27/24 21:00 06/27/24 21:34 Atorvastatin 40 Mg Tablet PO 40 mg HS SHANNAN Administration Famotidine 20 mg 06/27/24 09:00 06/28/24 08:50 Famotidine 20 Mg Tablet PO 20 mg BID SHANNAN Administration Gabapentin 300 mg 06/27/24 09:00 06/28/24 08:50 Gabapentin 300 Mg Capsule PO 300 mg TID SHANNAN Administration Guaifenesin 1,200 mg 06/28/24 09:30 Guaifenesin 12 Hr 600 Mg Tabcr PO Q12HR SHANNAN Ceftriaxone Sodium 1 gm in 50 mls @ 100 mls/hr 06/26/24 21:00 06/27/24 22:04 Rocephin 1 Gm/Ns 50 Ml IVPB Infused HS SHANNAN Infusion Azithromycin 500 mg in 250 mls @ 250 mls/hr 06/26/24 21:00 06/27/24 23:11 Zithromax IVPB Infused HS HSANNAN Infusion Tamsulosin HCl 0.4 mg 06/27/24 09:00 06/28/24 08:50 Tamsulosin Hcl 0.4 Mg Capsule PO 0.4 mg DAILY SHANNAN Administration Radiology Results: ITS Impressions Chest CTA 06/26/24 21:55 IMPRESSION: No pulmonary embolus. No aortic dissection. Findings consistent with patient's known interstitial lung disease demonstrating progression since 2020 examination. Mediastinal lymphadenopathy Findings within the interpolar region of the right kidney for which focused ultrasound may be performed nonemergently to evaluate its morphology. Renal Ultrasound 06/27/24 11:34 IMPRESSION: 1. 2.6 cm right renal cyst. Otherwise normal kidneys without hydronephrosis. Chest X-Ray 06/28/24 07:16 IMPRESSION: 1. Unchanged diffuse bilateral lung disease consistent with emphysema and chronic interstitial lung disease with likely superimposed pneumonia in the right upper lung zone. Labs Labs: Laboratory Results - last 24 hr 06/26/24 06/27/24 06/28/24 23:22 16:33 05:26 WBC 9.9 RBC 5.25 Hgb 14.8 Hct 44.9 MCV 85.5 MCH 28.2 MCHC 33.0 RDW 14.4 Plt Count 288 MPV 9.0 Immature Gran % (Auto) 1.4 H Neut % (Auto) 66.6 Lymph % (Auto) 21.7 [place] % (Auto) 8.1 Eos % (Auto) 1.3 Baso % (Auto) 0.9 Lymph # (Auto) 2.16 [place] # (Auto) 0.8 H Eos # (Auto) 0.1 Baso # (Auto) 0.1 Abs Immat Gran (auto) 0.14 H Absolute Neuts (auto) 6.6 Absolute Nucleated RBC 0.000 Nucleated RBC % 0.0 ESR 36 H O2 Liters/Min Not Reportable Sodium 133 L Potassium 4.0 Chloride 102 Carbon Dioxide 22 Anion Gap 9 BUN 14 Creatinine 1.01 Estim Creat Clear Calc 83 Estimated GFR > 60 Glucose 106 Calcium 8.9 Magnesium 2.1 Total Bilirubin 0.6 AST 57 ALT 76 H Alkaline Phosphatase 105 Total Creatine Kinase 65 C-Reactive Protein 11.4 H Total Protein 6.0 L Albumin 3.2 L Procalcitonin 0.7 Urine Color Yellow Urine Appearance Clear Urine pH 5.5 Ur Specific [place] 1.014 Urine Protein Negative Urine Glucose (UA) Negative Urine Ketones Negative Ur Blood (Man) Negative Urine Nitrate Negative Urine Bilirubin Negative Urine Urobilinogen 0.2 Ur Leukocyte Esterase Negative Rheumatoid Factor < 12.0 Rheumatoid Factor Scrn Cancelled Rheumatoid Factor Titer Cancelled
[2024-06-28] MEDS: guaiFENesin 12 HR 600 MG TABCR 1200 MG PO ×2 (09:38→20:56)
--- NOTE | 2024-06-28 13:40 | PM.IMPN ---
Progress Note: A&P Assessment and Plan (1) Sepsis: Code(s): A41.9 - Sepsis, unspecified organism Status: Acute Assessment and Plan: Meets SIRS criteria: WBC, HR, RR - lactic acid WNL - s/p 1L sepsis bolus - suspected source: pneumonia - blood cultures drawn on 06/26: pending - UA ordered - see plan below 06/28: continue IV antibiotics, vital signs improving, pulmonology following (2) Pneumonia: Code(s): J18.9 - Pneumonia, unspecified organism Status: Acute Assessment and Plan: Chest XR: Diffuse lung disease, consistent with pneumonia superimposed on chronic lung disease. Chest CTA: No pulmonary embolus. No aortic dissection. Findings consistent with patient's known interstitial lung disease demonstrating progression since 2020 examination. Redemonstration of peripheral honeycombing, panlobular emphysema, significant fibrotic change with a bilateral upper lobe predominance. No discrete nodules are appreciated. The cystic lesions within the right upper lobe now demonstrates thickened horne, an interval change. Varicose bronchiectasis is redemonstrated. Bulky calcified lymph nodes are identified within the right pulmonary hilum, unchanged from prior. Soft tissue attenuation foci are present within the bilateral pulmonary elena, possibly hilar lymph nodes minimally increased in size from 2020 examination. Mediastinal lymphadenopathy - Complicating Factors: COPD - started on CAP tx: azithromycin ceftriaxone on 06/26 - CRP elevated at 16.6 - ABG: pH 7.480, pCO2 24.9, pO2 69.2, HCO3 18.1 - Viral PCR: negative for Flu/COVID/RSV - urine for Legionella, urine for pneumococcal antigen, serum mycoplasma IgM and extended respiratory pathogen panel ordered - no supplemental O2 requirement - supportive treatment - Monitor vital signs, I&Os, neuro status and patient is a fall risk - Follow WBC, serum electrolytes, temperature curves and cultures (3) COPD (chronic obstructive pulmonary disease): Code(s): J44.9 - Chronic obstructive pulmonary disease, unspecified Status: Acute Assessment and Plan: Chronic COPD with 50 pack year history, continues to smoke 1 pack/day. No wheezing on exam. Chest CTA: No pulmonary embolus. No aortic dissection. Findings consistent with patient's known interstitial lung disease demonstrating progression since 2020 examination. Redemonstration of peripheral honeycombing, panlobular emphysema, significant fibrotic change with a bilateral upper lobe predominance. No discrete nodules are appreciated. The cystic lesions within the right upper lobe now demonstrates thickened horne, an interval change. Varicose bronchiectasis is redemonstrated. Bulky calcified lymph nodes are identified within the right pulmonary hilum, unchanged from prior. Soft tissue attenuation foci are present within the bilateral pulmonary elena, possibly hilar lymph nodes minimally increased in size from 2020 examination. Mediastinal lymphadenopathy - Bronchodilators and duonebs q6 - Monitor vital signs, I&Os, neuro status and patient is a fall risk - Monitor serum electrolytes, cultures and CBC - Monitor Oxygen saturation, Oxygen via NC; wean oxygen as tolerated, keep SpO2 greater than 88% - Pulmonology consulted, appreciate recommendations suspect bacterial infection and will not give inhaled or systemic steroids at this time check alpha 1 anti trypsin no evidence of hypercarbic respiratory failure (4) ILD (interstitial lung disease): Code(s): J84.9 - Interstitial pulmonary disease, unspecified Status: Acute Assessment and Plan: Chest XR: Diffuse lung disease, consistent with pneumonia superimposed on chronic lung disease. Chest CTA: No pulmonary embolus. No aortic dissection. Findings consistent with patient's known interstitial lung disease demonstrating progression since 2020 examination. Redemonstration of peripheral honeycombing, panlobular emphysema, significant fibrotic change with a bilateral upper lobe predominance. No discrete nodules are appreciated. The cystic lesions within the right upper lobe now demonstrates thickened horne, an interval change. Varicose bronchiectasis is redemonstrated. Bulky calcified lymph nodes are identified within the right pulmonary hilum, unchanged from prior. Soft tissue attenuation foci are present within the bilateral pulmonary elena, possibly hilar lymph nodes minimally increased in size from 2020 examination. Mediastinal lymphadenopathy - Monitor vital signs, I&Os, neuro status and patient is a fall risk - Monitor serum electrolytes, cultures and CBC - Monitor Oxygen saturation, Oxygen via NC; wean oxygen as tolerated, keep SpO2 greater than 88% - Pulmonology consulted, appreciate recommendations CT pattern per pulmonology represents atypical CT pattern of UIP with upper lobe panlobular emphysema. SUSU screen, ANCA screen, RF, anti CCP antibody, hypersensitivity pneumonitis panel, CPK, aldolase level, CRP, ESR, adn myomarker 3 plus profile sent to further evaluate etiology of patients ILD (5) Hypertension: Code(s): I10 - Essential (primary) hypertension Status: Acute Assessment and Plan: Chronic, continue home medications - amlodipine 10 mg daily - monitor, blood pressures remain stable at this time (6) Abnormal finding on imaging: Code(s): R93.89 - Abnormal findings on diagnostic imaging of other specified body structures Status: Acute Assessment and Plan: Chest CTA: Fluid attenuation focus within the interpolar region of the right kidney - Renal US: 2.6 cm right renal cyst. Otherwise normal kidneys without hydronephrosis. Time Spent With Patient Time with patient: 25 - 35 minutes Subjective Date/time seen: 06/28/24 13:40 Interval history: Patient reports less productive cough, improved breathing. Pulmonology saw patient requesting continue IV antibiotics at this time. Patient denies new or worsening/changes in condition. Review of Systems Review of Systems: All systems reviewed & are unremarkable except as noted in HPI and below Exam Narrative: General: male in no acute respiratory distress seated upright on the edge of the bed HEENT: Normocephalic. Atraumatic. Extraocular movement intact. Sclera clear and anicteric. No facial asymmetry. Neck: Neck was supple. Chest: Lungs diminished bilateral upper otherwise generally clear CV: Heart was regular rate and rhythm. S1/S2. No murmurs, gallops, or rubs. Abd: Abdomen was soft. Nontender. Nondistended. Positive bowel sounds. No organomegaly or masses. Ext: No cyanosis, or edema. 2+ DP pulses bilaterally. Neuro: Patient is alert and oriented x4. Strength is 5/5 in both upper and lower extremities. Cranial nerves 2-12 are intact. Speech is clear. Psych: Normal mood and affect. Patient is pleasant and cooperative. Skin: Warm and dry. No rashes noted. Objective Data Vital Signs Vital Signs: Vital Signs - 24 hr 06/27/24 16:00 06/27/24 20:00 06/27/24 20:05 Temperature 36.7 C 36.6 C Pulse Rate 94 91 Respiratory Rate 22 H 18 Blood Pressure 130/75 133/78 Pulse Oximetry 94 92 Oxygen Delivery Room Air 06/27/24 20:38 06/27/24 20:38 06/27/24 20:47 Temperature Pulse Rate 83 85 Respiratory Rate 20 20 Blood Pressure Pulse Oximetry 94 Oxygen Delivery Room Air 06/27/24 21:35 06/27/24 21:40 06/28/24 02:35 Temperature Pulse Rate 85 80 Respiratory Rate 22 H 18 Blood Pressure Pulse Oximetry 95 Oxygen Delivery Autopap CPAP 06/28/24 02:43 06/28/24 04:35 06/28/24 07:00 Temperature 36.7 C Pulse Rate 83 90 80 Respiratory Rate 18 20 18 Blood Pressure 128/63 Pulse Oximetry 92 91 Oxygen Delivery Room Air 06/28/24 07:00 06/28/24 07:10 06/28/24 08:00 Temperature Pulse Rate 80 82 Respiratory Rate 18 18 Blood Pressure Pulse Oximetry Oxygen Delivery Room Air 06/28/24 13:00 Temperature Pulse Rate 82 Respiratory Rate 18 Blood Pressure Pulse Oximetry Oxygen Delivery Intake/Output Intake/Output: Intake & Output 06/25/24 06/26/24 06/27/24 06/28/24 23:59 23:59 23:59 23:59 Intake Total 1300 1317 1580 Output Total 400 Balance 7535 681 0661 Meds/Results Medications: Active Medications Generic Name Dose Route Start Last Admin Trade Name Freq PRN Reason Stop Dose Admin Acetaminophen 650 mg 06/27/24 14:09 Acetaminophen 325 Mg Tablet PO Q4H PRN Mild Pain (1-3) or Fever Hydrocodone Bitart/Acetaminophen 1 tab 06/28/24 04:51 06/28/24 05:02 Hydrocodone/Acetaminophen (*Crx) 5-325 Mg Tablet PO 1 tab Q6H PRN Administration Pain Rated 4-6 Albuterol/Ipratropium 3 ml 06/27/24 14:00 06/28/24 12:57 Ipratropium 0.5 Mg/Albuterol Sulfate 2.5 Mg Ampul.Neb 3 Ml INHALATION 3 ml Q6HRT SHANNAN Administration Amlodipine Besylate 10 mg 06/27/24 09:00 06/28/24 08:50 Amlodipine Besylate 10 Mg Tablet PO 10 mg DAILY SHANNAN Administration Atorvastatin Calcium 40 mg 06/27/24 21:00 06/27/24 21:34 Atorvastatin 40 Mg Tablet PO 40 mg HS SHANNAN Administration Famotidine 20 mg 06/27/24 09:00 06/28/24 08:50 Famotidine 20 Mg Tablet PO 20 mg BID SHANNAN Administration Gabapentin 300 mg 06/27/24 09:00 06/28/24 11:56 Gabapentin 300 Mg Capsule PO 300 mg TID SHANNAN Administration Guaifenesin 1,200 mg 06/28/24 09:30 06/28/24 09:38 Guaifenesin 12 Hr 600 Mg Tabcr PO 1,200 mg Q12HR SHANNAN Administration Ceftriaxone Sodium 1 gm in 50 mls @ 100 mls/hr 06/26/24 21:00 06/27/24 22:04 Rocephin 1 Gm/Ns 50 Ml IVPB Infused HS SHANNAN Infusion Azithromycin 500 mg in 250 mls @ 250 mls/hr 06/26/24 21:00 06/27/24 23:11 Zithromax IVPB Infused HS SHANNAN Infusion Tamsulosin HCl 0.4 mg 06/27/24 09:00 06/28/24 08:50 Tamsulosin Hcl 0.4 Mg Capsule PO 0.4 mg DAILY SHANNAN Administration Radiology Results: ITS Impressions Chest CTA 06/26/24 21:55 IMPRESSION: No pulmonary embolus. No aortic dissection. Findings consistent with patient's known interstitial lung disease demonstrating progression since 2020 examination. Mediastinal lymphadenopathy Findings within the interpolar region of the right kidney for which focused ultrasound may be performed nonemergently to evaluate its morphology. Renal Ultrasound 06/27/24 11:34 IMPRESSION: 1. 2.6 cm right renal cyst. Otherwise normal kidneys without hydronephrosis. Chest X-Ray 06/28/24 07:16 IMPRESSION: 1. Unchanged diffuse bilateral lung disease consistent with emphysema and chronic interstitial lung disease with likely superimposed pneumonia in the right upper lung zone. Labs Labs: Laboratory Results - last 24 hr 06/27/24 06/28/24 16:33 05:26 WBC 9.9 RBC 5.25 Hgb 14.8 Hct 44.9 MCV 85.5 MCH 28.2 MCHC 33.0 RDW 14.4 Plt Count 288 MPV 9.0 Immature Gran % (Auto) 1.4 H Neut % (Auto) 66.6 Lymph % (Auto) 21.7 Nelson % (Auto) 8.1 Eos % (Auto) 1.3 Baso % (Auto) 0.9 Lymph # (Auto) 2.16 Nelson # (Auto) 0.8 H Eos # (Auto) 0.1 Baso # (Auto) 0.1 Abs Immat Gran (auto) 0.14 H Absolute Neuts (auto) 6.6 Absolute Nucleated RBC 0.000 Nucleated RBC % 0.0 ESR 36 H Sodium 133 L Potassium 4.0 Chloride 102 Carbon Dioxide 22 Anion Gap 9 BUN 14 Creatinine 1.01 Estim Creat Clear Calc 83 Estimated GFR > 60 Glucose 106 Calcium 8.9 Magnesium 2.1 Total Bilirubin 0.6 AST 57 ALT 76 H Alkaline Phosphatase 105 Total Creatine Kinase 65 C-Reactive Protein 11.4 H Total Protein 6.0 L Albumin 3.2 L Procalcitonin 0.7 Urine Color Yellow Urine Appearance Clear Urine pH 5.5 Ur Specific [place] 1.014 Urine Protein Negative Urine Glucose (UA) Negative Urine Ketones Negative Ur Blood (Man) Negative Urine Nitrate Negative Urine Bilirubin Negative Urine Urobilinogen 0.2 Ur Leukocyte Esterase Negative Rheumatoid Factor < 12.0 Rheumatoid Factor Scrn Cancelled Rheumatoid Factor Titer Cancelled Pulse Oximetry SpO2 results: 91-95% on room air Attestation: I personally reviewed and interpreted this pulse oximetry as follows: Interpretation: need for supplemental oxygenation at this time Quality VTE Prophylaxis VTE prophylaxis: mechanical ordered Hospitalist [facility] Advance Care Plan I have confirmed that the patient's Advanced Care Plan is present, code status is documented, or surrogate decision maker is listed in patient medical record.: Yes Medication Reconciliation I have utilized all available resources to obtain, update and review the patients current medications (includes all prescriptions, OTC, herbals, cannabis, and nutritional supplements).: Yes
[2024-06-28] MEDS: ATORVASTATIN 40 MG TABLET PO (20:56)
[2024-06-28] MEDS: AZITHROMYCIN 500 MG/NS 250 ML 500 MG/250 ML BAG 250 MG IVPB (20:57)
[2024-06-29] VITALS (9 sets, daily range): BP systolic 111–130; BP diastolic 74–80; PULSE 80–95; RESP 18–20; TEMP 36.5–37.2; O2SAT 93–98
[2024-06-29] MEDS: IPRATROPIUM 0.5 MG/ALBUTEROL SULFATE 2.5 MG AMPUL.NEB 3 ML INHALATION ×2 (02:26→09:27)
[2024-06-29] MEDS: HYDROcodone/acetaminophen (*CRX) 5-325 MG TABLET 1 TAB PO ×2 (04:50→20:31)
[2024-06-29 06:57] LABS: Basophils Absolute Auto 0.1 K/mm3 (0.0-0.1); Basophils Percent Auto 0.8 % (0.2-1.2); Eosinophils Absolute Auto 0.3 K/mm3 (0-0.3); Eosinophils Percent Auto 3.8 % (0-4.4); Hematocrit 45.8 % (42.0-52.0); Hemoglobin 15.1 g/dL (14.0-18.0); Immature Granulocyte Absolute 0.17 K/mm3 (0.00-0.031); Immature Granulocyte Percent A 1.9 % (0-0.5); Lymphocytes Percent Auto 21.1 % (18.3-44.2); Mean Platelet Volume 8.6 fl (7.4-10.4); Monocytes Absolute Auto 0.6 K/mm3 (0.1-0.6); Monocytes Percent Auto 6.9 % (2.6-8.5); Neutrophils Absolute Auto 5.9 K/mm3 (1.3-6.7); Neutrophils Percent Auto 65.5 % (45.5-73.1); Platelet Count Result 287 k/mm3 (150-375); Red Blood Count 5.39 M/mm3 (4.6-6.20); Red Cell Distribution Width 14.4 % (11.5-14.5)
[2024-06-29 07:19] LABS: Alanine Aminotransferase 153 U/L (6-50); Albumin Level 3.1 g/dL (3.5-5.1); Alkaline Phosphatase 103 U/L (38-126); Anion Gap 8 mmol/L (4-12); Aspartate Amino Transferase 120 U/L (17-59); Bilirubin,Total 0.7 mg/dL (0.2-1.3); Blood Urea Nitrogen 12 mg/dL (9-20); CRP 5.1 mg/dL (<1.0); Calcium 8.8 mg/dL (8.4-10.2); Carbon Dioxide 24 mmol/L (22-30); Chloride 102 mmol/L (98-107); Estimated CRCL calculation 84 ml/min; Estimated Glomerular Filt Rate > 60; Glucose 106 mg/dL (65-110); Magnesium 2.2 mg/dL (1.6-2.3); Potassium 3.9 mmol/L (3.4-5.0); Sodium 134 mmol/L (137-145)
[2024-06-29 08:04] LABS: Procalcitonin 0.5 ng/mL
[2024-06-29] MEDS: guaiFENesin 12 HR 600 MG TABCR 1200 MG PO ×2 (08:16→20:32)
[2024-06-29] MEDS: amLODIPine BESYLATE 10 MG TABLET PO (08:16)
[2024-06-29] MEDS: GABAPENTIN 300 MG CAPSULE PO ×3 (08:16→16:22)
[2024-06-29] MEDS: FAMOTIDINE 20 MG TABLET PO ×2 (08:16→16:22)
[2024-06-29] MEDS: TAMSULOSIN HCL 0.4 MG CAPSULE PO (08:17)
[2024-06-29 09:11] LABS: Erythrocyte Sedimentation Rate 25 mm/hr (0-20)
--- NOTE | 2024-06-29 10:20 | PC.NURSE ---
All belongings from safe returned to patient on this date at 10:20.
--- NOTE | 2024-06-29 10:52 | P.PNPL_ITS ---
Progress Note: A&P Assessment and Plan (1) Pneumonia, bacterial: Code(s): J15.9 - Unspecified bacterial pneumonia Status: Acute Assessment and Plan: Patient presents with 2-3 weeks of infectious complaints, leukocytosis, new consolidative infiltrates in his right upper lobe on his CT scan. COVID, influenza, RSV RT PCR studies negative. 06/27/24: Overall the patient tells me he is a little bit better but it is difficult for him to quantitate this. He says his energy is better, his cough is better, his right-sided chest pain is resolved and his phlegm is less voluminous. His white blood cell count is 13.7, his creatinine was 1.07. He is afebrile. His CRP is 16.6, procalcitonin is 1.1. His weight today is 104.5 kg up from admission weight of 103 kg. Patient remains on room air with saturat ions 93%. Plan: Continue ceftriaxone and azithromycin, day 2. I will send urine for Legionella, urine for pneumococcal antigen, serum mycoplasma IgM and extended respiratory pathogen panel. 06/28/24: Patient tells me is a little bit better but he can not quantify this. He says he 5 still feels fatigued. He says at rest he is breathing fine. He walked to the bathroom and stated that he was breathing fine when he walked to the bathroom. He still has a cough with some yellow green phlegm. He is afebrile since 06/26 at 21:52. he states the breathing pain in his upper back is now gone. He complains of chronic lower back pain. His room air saturations are 94%. His white blood cell count is 9.9, his creatinine is 1.01, his procalcitonin is decreased from 1.1-0.7. Chest x-ray today shows no change in his right upper lobe infiltrate and diffuse interstitial infiltrates. He is getting DuoNebs now and he states he notices no difference. Plan: Patient continues to improve, Afebrile, leukocytosis has resolved, chest x-ray with no change, remains on room air. Continue ceftriaxone and azithromycin, day 3. He says he has some minimal difficulty expectorating his phlegm and I will add guaifenesin 1200 mg p.o. b.i.d. and a Cornet flutter valve. 06/29/2024: Her overall the patient tells me he is breathing at his baseline, his respiratory back pain is completely resolved. His phlegm is decreased but persists with some yellow and green phlegm. He is afebrile. White blood cell count 9.0, creatinine 1.0, CRP is decreased to 5.1, room air saturations are 94%. Plan: Continues to improve. Continue ceftriaxone and azithromycin day 4. Minimal improvement with guaifenesin and flutter valve. Discussed with Iban Reagan, will follow with you. (2) COPD (chronic obstructive pulmonary disease): Code(s): J44.9 - Chronic obstructive pulmonary disease, unspecified Status: Acute Assessment and Plan: Patient carries a diagnosis of COPD. Fifty-six pack year tobacco use and currently smoking 1 pack per day, CT scan on 11/05/2017 with apical predominant paraseptal and centrilobular emphysema. He has been on inhalers off and on for 10 years. ABG on room air with pH of 7.. [facility] his white blood cell count was 17.2 with 0.3% eosinophils=51.6/uL. 06/27/24: Overall the patient tells me he is a little bit better but it is difficult for him to quantitate this. He says his energy is better, his cough is better, his right-sided chest pain is resolved and his phlegm is less voluminous. His white blood cell count is 13.7, his creatinine was 1.07. He is afebrile. His CRP is 16.6, procalcitonin is 1.1. His weight today is 104.5 kg up from admission weight of 103 kg. Patient remains on room air with saturations 93%. Plan: Currently the patient has no wheezing. He does have some shortness of breath and I will give him a therapeutic trial of bronchodilators with DuoNebs q.6 hours. I suspect he has an active bacterial infection and will not give him inhaled or systemic steroids at this time. I will check an alpha 1 anti trypsin. There is no evidence of hypercarbic respiratory failure. 06/28/24: no wheezing. Clinically improving. Minimal subjective improvement with DuoNebs. Plan: Continue DuoNebs q.6. no need for inhaled or systemic steroids at this time. 06/29/24: No wheezing. Clinically improving. I discontinue his DuoNebs and change in 2 Anoro Ellipta 62.5-25 at 1 puff q.day. I will perform an overnight oximetry on room air to determine if he qualifies for supplemental oxygen at night. (3) ILD (interstitial lung disease): Code(s): J84.9 - Interstitial pulmonary disease, unspecified Status: Acute Assessment and Plan: regarding his interstitial lung disease the patient is not aware of this diagnosis but has been told he has scarring on the lungs. he does not remember when he was told this or who told him this. For CT scan in our system from 11/05/2017 demonstrates mild peripheral and basilar dependent reticulations and septal thickening in the dependent portions of both lower lung thompson with some honeycombing. There is apical predominant paraseptal and centrilobular emphysema right upper lobe is extensively involved but they are also lesions in the left upper lobe. CT scan on 06/16/2019 shows very minimal progression of his lower lobe reticulations and honeycombing and no changes in his upper lobe paraseptal and centrilobular emphysema. CTA scan of the chest on 06/26/2024 with no pulmonary embolism. Very minimal progression of his lower lobe reticulations and honeycomb mean with continued upper lobe paraseptal and centrilobular emphysema with no change on the left but on the right there are increased infiltrates, thick horne and consolidations with no air-fluid levels. This CT pattern in my opinion represents a typical CT pattern of UIP with upper lobe panlobular emphysema.. Plan: Regarding other etiologies for his interstitial lung disease I will send serologies. I will order a SUSU screen that includes 11 different auto antibod ies, an ANCA screen, a rheumatoid factor, anti CCP antibody, hypersensitivity pneumonitis panel, a CPK, an aldolase level, CRP, ESR and myomarker 3 plus profile. 06/28/24: clinically improved. Rheumatoid factor less than 12, CPK 65. Plan: Await remaining serologies. 06/29/24: Clinically improved. Plan: Serologies pending. (4) Daytime hypersomnia: Code(s): G47.10 - Hypersomnia, unspecified Status: Acute Assessment and Plan: Patient states he had a sleep study 10 years ago but does not know the results he was tried on auto PAP 5 to 20 last night and tolerated this for few hours but then his mouth was dry and he requested to take it off. He is not sure if he slept any better with the auto PAP. At this time will discontinue auto PAP and once he is clinically better will do overnight oximetry on room air to assess his oxygenation at night. If he has a sleep-related breathing disorder he said he would try machine with a nasal mask only. I would not treat him in the hospital with PAP until we have further defined whether not he has a sleep- related breathing disorder. Eempiric treatment with PAP will not treat any central related apneas (if he has them) and could provoke treatment related central apneas which would not be treated with PAP. He will need an outpatient sleep study to assess him for sleep-related breathing disorder. Plan: will monitor patient for nocturnal desaturations and apply supplemental oxygen if needed. 06/29/24: Patient remains on room air during the day. BMI 26.5. Plan: I will order an overnight oximetry on room air to assess for nocturnal hypoxemia. I will check TSH and free T4 in the morning. Subjective Date/time seen: 06/29/24 10:52 Interval history: 06/27/2024: This is a new pulmonary consult for COPD with pneumonia. 63-year-old man with a history of hypertension, hyperlipidemia, BPH, COPD and interstitial lung disease. Is difficult to get an accurate past medical history from the patient as he continues to say I do not remember. He says he was diagnosed with COPD approximately 10 years ago but does not know how that diagnosis was made. He does not remember having PFTs. He has been on and off of inhalers for the last 10 years and does not use them regularly. He smokes 1 pack per day since age 7 for a total of 56 pack years. He was exposed to secondhand smoke from both of his parents and from his until she 1 year ago. He has smoked marijuana and the last was 3-4 weeks ago. He denies any other illicit drugs years. 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 He denies working in the steel mill, coal mining, [employer] work, construction work. regarding his interstitial lung disease the patient is not aware of this diagnosis but has been told he has scarring on the lungs. he does not remember when he was told this or who told him this. For CT scan in our system from 11/05/2017 demonstrates mild peripheral and basilar dependent reticulations and septal thickening in the dependent portions of both lower lung thompson with some honeycombing. There is apical predominant paraseptal and centrilobular emphysema right upper lobe is extensively involved but they are also lesions in the left upper lobe. CT scan on 06/16/2019 shows very minimal progression of his lower lobe reticulations and honeycombing and no changes in his upper lobe paraseptal and centrilobular emphysema. Study maybe 10 years. He thinks this was done in [place] or [place]. He does not remember what the results were and he does not remember being told that he needs any machine with a mask to help him breathe at night. At baseline the patient tells me 1 year ago he could walk half a mi. after his a year ago he has had a steady decline in his health and currently states he can walk 1 block. He is a current smoker 1 pack per day. He has chronic cough with some some yellow to green phlegm production. 06/26/24: Over the last 2-3 weeks he has developed fatigue, worsening cough, subjective feelings of fever, shortness of breath, aches, intermittent wheezing and some chest pains. This has progressively gotten worse and he presented to the emergency room on 06/26/2024. in the emergency room his blood pressure is 133/67, heart rate 123, respiratory rate 26, room air saturations 94%. White blood cell count 17.2, creatinine 1.31, BNP 289, COVID influenza and RSV RT PCR studies negative. Rest room air blood gas 7.48/58/69. CTA scan of the chest on 06/26/2024 with no pulmonary embolism. Very minimal progression of his lower lobe reticulations and honeycomb mean with continued upper lobe paraseptal and centrilobular emphysema with no change on the left but on the right there are increased infiltrates, thick horne and consolidations with no air-fluid levels. Patient was started on ceftriaxone and azithromycin. 06/27/24: Overall the patient tells me he is a little bit better but it is difficult for him to quantitate this. He says his energy is better, his cough is better, his right-sided chest pain is resolved and his phlegm is less voluminous. His white blood cell count is 13.7, his creatinine was 1.07. He is afebrile. His CRP is 16.6, procalcitonin is 1.1. His weight today is 104.5 kg up from admission weight of 103 kg. Patient remains on room air with saturations 93%. 06/28/24: Patient tells me is a little bit better but he can not quantify this. He says he 5 still feels fatigued. He says at rest he is breathing fine. He walked to the bathroom and stated that he was breathing fine when he walked to the bathroom. He still has a cough with some yellow green phlegm. He is afeb rile since 06/26 at 21:52. he states the breathing pain in his upper back is now gone. He complains of chronic lower back pain. His room air saturations are 94%. His white blood cell count is 9.9, his creatinine is 1.01, his procalcitonin is decreased from 1.1-0.7. Chest x-ray today shows no change in his right upper lobe infiltrate and diffuse interstitial infiltrates. He is getting DuoNebs now and he states he notices no difference. 06/29/2024: Her overall the patient tells me he is breathing at his baseline, his respiratory back pain is completely resolved. His phlegm is decreased but persists with some yellow and green phlegm. He is afebrile. White blood cell count 9.0, creatinine 1.0, CRP is decreased to 5.1, room air saturations are 94%. DATA: EXAMINATION: CTA chest PE protocol INDICATION: Shortness of breath and tachycardia. Pulmonary embolus suspected clinically COMPARISON: Reference is made to a CT examination of the chest dated 06/16/2019 FINDINGS: No filling defect is identified within the main or proximal pulmonary arteries. The main pulmonary artery is not enlarged. The thoracic aorta is of normal caliber without dissection. Redemonstration of peripheral honeycombing, panlobular emphysema, significant fibrotic change with a bilateral upper lobe predominance. No discrete nodules are appreciated. The cystic lesions within the right upper lobe now demonstrates thickened horne, an interval change. Varicose bronchiectasis is redemonstrated. Bulky calcified lymph nodes are identified within the right pulmonary hilum, unchanged from prior. Soft tissue attenuation foci are present within the bilateral pulmonary elena, possibly hilar lymph nodes minimally increased in size from 2020 examination. Multiple lymph nodes are redemonstrated within the mediastinum. The largest is within the subcarinal region measuring 16 mm in short axis dimension (increased from prior when it measured 10 mm). No acute compression fracture is present within the thoracic spine. No displaced rib fracture is noted. The heart is of normal size, without pericardial effusion. Within the upper abdomen: Small hiatal hernia is present The gallbladder is not visualized, presumably surgically absent. The bilateral adrenal glands are unremarkable. Fluid attenuation focus within the interpolar region of the right kidney, not included on the previous examination for which focused ultrasound may be performed to evaluate its morphology. IMPRESSION: No pulmonary embolus. No aortic dissection. Findings consistent with patient's known interstitial lung disease demonstrating progression since 2020 examination. Mediastinal lymphadenopathy Findings within the interpolar region of the right kidney for which focused ultrasound may be performed nonemergently to evaluate its morphology. 06/16/2019 EXAMINATION: CT lung screening INDICATION: Personal history of nicotine dependence. FINDINGS: Again scattered regions of peripheral honeycombing, emphysema, some fibrotic changes with upper lobe predominance. No suspicious focal nodules. Tracheobronchial tree is patent. Precarinal lymph node has decreased in size, upper limits of normal. There are no pleural or pericardial effusions. There is no pneumothorax. Heart normal in size. There is mild coronary arterial calcification, arterial sclerosis. Upper abdomen is unremarkable. There is thoracic spondylosis without osteoblastic or osteolytic lesions identified. IMPRESSION: Lung-RADS category 1, negative (<1%chance of malignancy); recommend continued LDCT screening in 1 year. Review of Systems Constitutional: Constitutional: Reports no additional constitutional complaints Eyes: Eyes: Reports no additional eye complaints ENT: Reports system reviewed and no additional complaints, except as documented Cardiovascular: Cardiovascular: Reports no additional cardiovascular complaints Respiratory: Respiratory: Reports no additional respiratory complaints Gastrointestinal: Gastrointestinal: Reports no additional gastrointestinal complaints Musculoskeletal: Musculoskeletal: Reports no additional musculoskeletal complaints Neurologic: Reports system reviewed and no additional complaints, except as documented Psychiatric: Psychiatric: Reports no additional psychiatric complaints Endocrine: Endocrine: Reports no additional endocrine complaints Hematologic/Lymphatic: Hematologic/Lymphatic: Reports no additional hematologic/lymphatic complaints Allergic/Immunologic: Allergic/Immunologic: Reports no additional allergic/immunologic complaints Exam Const: General: cooperative, healthy appearing and comfortable Orientation/consciousness: oriented to person, oriented to place and oriented to time HENMT: Head: normal to inspection Ears: hearing grossly normal bilaterally Eyes: General: appearance normal, both eyes and all related structures Neck: Neck: normal visual inspection Chest: Chest palpation & inspection: normal inspection of the chest Resp: Effort & Inspection: normal respiratory effort and able to speak in complete sentences Auscultation: crackles, no rales, no rhonchi, no wheezes and lung sounds not diminished Other: Improved basilar crackles Cardio: Jugular venous distension: no JVD GI: Inspection: normal to inspection Skin: General skin exam: normal color Other: clubbed upper extremities. Neuro: General: oriented to person, oriented to place and oriented to time Extrem: General: normal to inspection and edema Psych: Appearance: grossly normal Objective Data Vital Signs Vital Signs: Vital Signs - 24 hr 06/28/24 13:00 06/28/24 15:10 06/28/24 19:55 Temperature 36.9 C 36.5 C Pulse Rate 82 90 92 Respiratory Rate 18 18 20 Blood Pressure 122/73 135/76 Pulse Oximetry 95 99 Oxygen Delivery Fraction of Inspired Oxygen 06/28/24 20:00 06/28/24 20:32 06/28/24 20:37 Temperature Pulse Rate 88 Respiratory Rate 18 Blood Pressure Pulse Oximetry 99 94 Oxygen Delivery Room Air Room Air Fraction of Inspired Oxygen 06/28/24 20:45 06/29/24 02:26 06/29/24 02:36 Temperature Pulse Rate 84 85 83 Respiratory Rate 18 18 18 Blood Pressure Pulse Oximetry Oxygen Delivery Fraction of Inspired Oxygen 06/29/24 04:35 06/29/24 08:00 06/29/24 09:27 Temperature 36.5 C Pulse Rate 86 Respiratory Rate 20 Blood Pressure 126/74 Pulse Oximetry 94 93 Oxygen Delivery Room Air Room Air Fraction of Inspired Oxygen 21 06/29/24 09:27 06/29/24 09:34 Temperature Pulse Rate 86 80 Respiratory Rate 20 20 Blood Pressure Pulse Oximetry Oxygen Delivery Fraction of Inspired Oxygen Intake/Output Intake/Output: Intake & Output 06/26/24 06/27/24 06/28/24 06/29/24 23:59 23:59 23:59 23:59 Intake Total 1300 1317 2430 1330 Output Total 400 Balance 2155 801 0123 1330 Meds/Results Medications: Active Medications Generic Name Dose Route Start Last Admin Trade Name Freq PRN Reason Stop Dose Admin Acetaminophen 650 mg 06/27/24 14:09 Acetaminophen 325 Mg Tablet PO Q4H PRN Mild Pain (1-3) or Fever Hydrocodone Bitart/Acetaminophen 1 tab 06/28/24 04:51 06/29/24 04:50 Hydrocodone/Acetaminophen (*Crx) 5-325 Mg Tablet PO 1 tab Q6H PRN Administration Pain Rated 4-6 Albuterol/Ipratropium 3 ml 06/29/24 10:02 Ipratropium 0.5 Mg/Albuterol Sulfate 2.5 Mg Ampul.Neb 3 Ml INHALATION Q6HRT PRN Wheezing Amlodipine Besylate 10 mg 06/27/24 09:00 06/29/24 08:16 Amlodipine Besylate 10 Mg Tablet PO 10 mg DAILY SHANNAN Administration Atorvastatin Calcium 40 mg 06/27/24 21:00 06/28/24 20:56 Atorvastatin 40 Mg Tablet PO 40 mg HS SHANNAN Administration Famotidine 20 mg 06/27/24 09:00 06/29/24 08:16 Famotidine 20 Mg Tablet PO 20 mg BID SHANNAN Administration Gabapentin 300 mg 06/27/24 09:00 06/29/24 08:16 Gabapentin 300 Mg Capsule PO 300 mg TID SHANNAN Administration Guaifenesin 1,200 mg 06/28/24 09:30 06/29/24 08:16 Guaifenesin 12 Hr 600 Mg Tabcr PO 1,200 mg Q12HR SHANNAN Administration Ceftriaxone Sodium 1 gm in 50 mls @ 100 mls/hr 06/26/24 21:00 06/28/24 21:27 Rocephin 1 Gm/Ns 50 Ml IVPB Infused HS SHANNAN Infusion Azithromycin 500 mg in 250 mls @ 250 mls/hr 06/26/24 21:00 06/28/24 21:57 Zithromax IVPB Infused HS SHANNAN Infusion Tamsulosin HCl 0.4 mg 06/27/24 09:00 06/29/24 08:17 Tamsulosin Hcl 0.4 Mg Capsule PO 0.4 mg DAILY SHANNAN Administration Umeclidinium/Vilanterol 1 puff 06/29/24 10:05 Umeclidinium/Vilanterol 62.5-25 Mcg Ellipta INHALATION DAILYRT [facility], [facility] Radiology Results: ITS Impressions Chest CTA 06/26/24 21:55 IMPRESSION: No pulmonary embolus. No aortic dissection. Findings consistent with patient's known interstitial lung disease demonstrating progression since 2019 examination. Mediastinal lymphadenopathy Findings within the interpolar region of the right kidney for which focused ult rasound may be performed nonemergently to evaluate its morphology. Renal Ultrasound 06/27/24 11:34 IMPRESSION: 1. 2.6 cm right renal cyst. Otherwise normal kidneys without hydronephrosis. Chest X-Ray 06/28/24 07:16 IMPRESSION: 1. Unchanged diffuse bilateral lung disease consistent with emphysema and chronic interstitial lung disease with likely superimposed pneumonia in the right upper lung zone. Labs Labs: Laboratory Results - last 24 hr 06/29/24 06:19 WBC 9.0 RBC 5.39 Hgb 15.1 Hct 45.8 MCV 85.0 MCH 28.0 MCHC 33.0 RDW 14.4 Plt Count 287 MPV 8.6 Immature Gran % (Auto) 1.9 H Neut % (Auto) 65.5 Lymph % (Auto) 21.1 Humphreys % (Auto) 6.9 Eos % (Auto) 3.8 Baso % (Auto) 0.8 Lymph # (Auto) 1.90 Humphreys # (Auto) 0.6 Eos # (Auto) 0.3 Baso # (Auto) 0.1 Abs Immat Gran (auto) 0.17 H Absolute Neuts (auto) 5.9 Absolute Nucleated RBC 0.000 Nucleated RBC % 0.0 ESR 25 H Sodium 134 L Potassium 3.9 Chloride 102 Carbon Dioxide 24 Anion Gap 8 BUN 12 Creatinine 1.00 Estim Creat Clear Calc 84 Estimated GFR > 60 Glucose 106 Calcium 8.8 Magnesium 2.2 Total Bilirubin 0.7 AST 120 H ALT 153 H Alkaline Phosphatase 103 C-Reactive Protein 5.1 H Total Protein 7.0 Albumin 3.1 L Procalcitonin 0.5
--- NOTE | 2024-06-29 12:36 | P.PNIM_ITS ---
Progress Note: A&P Assessment and Plan (1) Sepsis: Code(s): A41.9 - Sepsis, unspecified organism Status: Acute Assessment and Plan: Meets SIRS criteria: WBC, HR, RR - lactic acid WNL - s/p 1L sepsis bolus - suspected source: pneumonia - blood cultures drawn on 06/26: pending - UA ordered - see plan below 06/28: continue IV antibiotics, vital signs improving, pulmonology following 06/29: continue IV antibiotics, consider setting up outpatient infusion if required IV beyond tomorrow. (2) Pneumonia: Code(s): J18.9 - Pneumonia, unspecified organism Status: Acute Assessment and Plan: Chest XR: Diffuse lung disease, consistent with pneumonia superimposed on chronic lung disease. Chest CTA: No pulmonary embolus. No aortic dissection. Findings consistent with patient's known interstitial lung disease demonstrating progression since 2019 examination. Redemonstration of peripheral honeycombing, panlobular emphysema, significant fibrotic change with a bilateral upper lobe predominance. No discrete nodules are appreciated. The cystic lesions within the right upper lobe now demonstrates thickened horne, an interval change. Varicose bronchiectasis is redemonstrated. Bulky calcified lymph nodes are identified within the right pulmonary hilum, unchanged from prior. Soft tissue attenuation foci are present within the bilateral pulmonary elena, possibly hilar lymph nodes minimally increased in size from 2020 examination. Mediastinal lymphadenopathy - Complicating Factors: COPD - started on CAP tx: azithromycin ceftriaxone on 06/26 - CRP elevated at 16.6 - ABG: pH 7.480, pCO2 24.9, pO2 69.2, HCO3 18.1 - Viral PCR: negative for Flu/COVID/RSV - urine for Legionella, urine for pneumococcal antigen, serum mycoplasma IgM and extended respiratory pathogen panel ordered - no supplemental O2 requirement - supportive treatment - Monitor vital signs, I&Os, neuro status and patient is a fall risk - Follow WBC, serum electrolytes, temperature curves and cultures (3) COPD (chronic obstructive pulmonary disease): Code(s): J44.9 - Chronic obstructive pulmonary disease, unspecified Status: Acute Assessment and Plan: Chronic COPD with 50 pack year history, continues to smoke 1 pack/day. No wheezing on exam. Chest CTA: No pulmonary embolus. No aortic dissection. Findings consistent with patient's known interstitial lung disease demonstrating progression since 2020 examination. Redemonstration of peripheral honeycombing, panlobular emphysema, significant fibrotic change with a bilateral upper lobe predominance. No discrete nodules are appreciated. The cystic lesions within the right upper lobe now demonstrates thickened horne, an interval change. Varicose bronchiectasis is redemonstrated. Bulky calcified lymph nodes are identified within the right pulmonary hilum, unchanged from prior. Soft tissue attenuation foci are present within the bilateral pulmonary elena, possibly hilar lymph nodes minimally increased in size from 2020 examination. Mediastinal lymphadenopathy - Bronchodilators and duonebs q6 - Monitor vital signs, I&Os, neuro status and patient is a fall risk - Monitor serum electrolytes, cultures and CBC - Monitor Oxygen saturation, Oxygen via NC; wean oxygen as tolerated, keep SpO2 greater than 88% - Pulmonology consulted, appreciate recommendations suspect bacterial infection and will not give inhaled or systemic steroids at this time check alpha 1 anti trypsin no evidence of hypercarbic respiratory failure (4) ILD (interstitial lung disease): Code(s): J84.9 - Interstitial pulmonary disease, unspecified Status: Acute Assessment and Plan: Chest XR: Diffuse lung disease, consistent with pneumonia superimposed on chronic lung disease. Chest CTA: No pulmonary embolus. No aortic dissection. Findings consistent with patient's known interstitial lung disease demonstrating progression since 2020 examination. Redemonstration of peripheral honeycombing, panlobular emphysema, significant fibrotic change with a bilateral upper lobe predominance. No discrete nodules are appreciated. The cystic lesions within the right upper lobe now demonstrates thickened horne, an interval change. Varicose bronchiectasis is redemonstrated. Bulky calcified lymph nodes are identified within the right pulmonary hilum, unchanged from prior. Soft tissue attenuation foci are present within the bilateral pulmonary elena, possibly hilar lymph nodes minimally increased in size from 2020 examination. Mediastinal lymphadenopathy - Monitor vital signs, I&Os, neuro status and patient is a fall risk - Monitor serum electrolytes, cultures and CBC - Monitor Oxygen saturation, Oxygen via NC; wean oxygen as tolerated, keep SpO2 greater than 88% - Pulmonology consulted, appreciate recommendations CT pattern per pulmonology represents atypical CT pattern of UIP with upper lobe panlobular emphysema. SUSU screen, ANCA screen, RF, anti CCP antibody, hypersensitivity pneumonitis panel, CPK, aldolase level, CRP, ESR, adn myomarker 3 plus profile sent to further evaluate etiology of patients ILD (5) Hypertension: Code(s): I10 - Essential (primary) hypertension Status: Acute Assessment and Plan: Chronic, continue home medications - amlodipine 10 mg daily - monitor, blood pressures remain stable at this time (6) Abnormal finding on imaging: Code(s): R93.89 - Abnormal findings on diagnostic imaging of other specified body structures Status: Acute Assessment and Plan: Chest CTA: Fluid attenuation focus within the interpolar region of the right kidney - Renal US: 2.6 cm right renal cyst. Otherwise normal kidneys without hydronephrosis. Time Spent With Patient Time with patient: 15 - 25 minutes Subjective Date/time seen: 06/29/24 12:36 Interval history: Patient feeling better today. Dr. Hernández wants further IV antibiotics. Considering arranging outpatient infusion center on Sunday vs transition to oral antibiotics. Patient states he is leaving tomorrow whether discharged or he leaves AMA. Plan for overnight oximetry tonight. Review of Systems Review of Systems: All systems reviewed & are unremarkable except as noted in HPI and below Exam Narrative: General: male in no acute respiratory distress seated upright on the edge of the bed HEENT: Normocephalic. Atraumatic. Extraocular movement intact. Sclera clear and anicteric. No facial asymmetry. Neck: Neck was supple. Chest: Lungs diminished bilateral upper otherwise generally clear CV: Heart was regular rate and rhythm. S1/S2. No murmurs, gallops, or rubs. Abd: Abdomen was soft. Nontender. Nondistended. Positive bowel sounds. No organomegaly or masses. Ext: No cyanosis, or edema. 2+ DP pulses bilaterally. Neuro: Patient is alert and oriented x4. Strength is 5/5 in both upper and lower extremities. Cranial nerves 2-12 are intact. Speech is clear. Psych: Normal mood and affect. Patient is pleasant and cooperative. Skin: Warm and dry. No rashes noted. Objective Data Vital Signs Vital Signs: Vital Signs - 24 hr 06/28/24 13:00 06/28/24 15:10 06/28/24 19:55 Temperature 36.9 C 36.5 C Pulse Rate 82 90 92 Respiratory Rate 18 18 20 Blood Pressure 122/73 135/76 Pulse Oximetry 95 99 Oxygen Delivery Fraction of Inspired Oxygen 06/28/24 20:00 06/28/24 20:32 06/28/24 20:37 Temperature Pulse Rate 88 Respiratory Rate 18 Blood Pressure Pulse Oximetry 99 94 Oxygen Delivery Room Air Room Air Fraction of Inspired Oxygen 06/28/24 20:45 06/29/24 02:26 06/29/24 02:36 Temperature Pulse Rate 84 85 83 Respiratory Rate 18 18 18 Blood Pressure Pulse Oximetry Oxygen Delivery Fraction of Inspired Oxygen 06/29/24 04:35 06/29/24 08:00 06/29/24 09:27 Temperature 36.5 C Pulse Rate 86 Respiratory Rate 20 Blood Pressure 126/74 Pulse Oximetry 94 93 Oxygen Delivery Room Air Room Air Fraction of Inspired Oxygen 21 06/29/24 09:27 06/29/24 09:34 Temperature Pulse Rate 86 80 Respiratory Rate 20 20 Blood Pressure Pulse Oximetry Oxygen Delivery Fraction of Inspired Oxygen Intake/Output Intake/Output: Intake & Output 06/26/24 06/27/24 06/28/24 06/29/24 23:59 23:59 23:59 23:59 Intake Total 1300 1317 2430 1330 Output Total 400 Balance 5855 482 6614 1330 Meds/Results Medications: Active Medications Generic Name Dose Route Start Last Admin Trade Name Freq PRN Reason Stop Dose Admin Acetaminophen 650 mg 06/27/24 14:09 Acetaminophen 325 Mg Tablet PO Q4H PRN Mild Pain (1-3) or Fever Hydrocodone Bitart/Acetaminophen 1 tab 06/28/24 04:51 06/29/24 04:50 Hydrocodone/Acetaminophen (*Crx) 5-325 Mg Tablet PO 1 tab Q6H PRN Administration Pain Rated 4-6 Albuterol/Ipratropium 3 ml 06/29/24 10:02 Ipratropium 0.5 Mg/Albuterol Sulfate 2.5 Mg Ampul.Neb 3 Ml INHALATION Q6HRT PRN Wheezing Amlodipine Besylate 10 mg 06/27/24 09:00 06/29/24 08:16 Amlodipine Besylate 10 Mg Tablet PO 10 mg DAILY SHANNAN Administration Atorvastatin Calcium 40 mg 06/27/24 21:00 06/28/24 20:56 Atorvastatin 40 Mg Tablet PO 40 mg HS SHANNAN Administration Famotidine 20 mg 06/27/24 09:00 06/29/24 08:16 Famotidine 20 Mg Tablet PO 20 mg BID SHANNAN Administration Gabapentin 300 mg 06/27/24 09:00 06/29/24 12:32 Gabapentin 300 Mg Capsule PO 300 mg TID SHANNAN Administration Guaifenesin 1,200 mg 06/28/24 09:30 06/29/24 08:16 Guaifenesin 12 Hr 600 Mg Tabcr PO 1,200 mg Q12HR SHANNAN Administration Ceftriaxone Sodium 1 gm in 50 mls @ 100 mls/hr 06/26/24 21:00 06/28/24 21:27 Rocephin 1 Gm/Ns 50 Ml IVPB Infused HS SHANNAN Infusion Azithromycin 500 mg in 250 mls @ 250 mls/hr 06/26/24 21:00 06/28/24 21:57 Zithromax IVPB Infused HS SHANNAN Infusion Tamsulosin HCl 0.4 mg 06/27/24 09:00 06/29/24 08:17 Tamsulosin Hcl 0.4 Mg Capsule PO 0.4 mg DAILY SHANNAN Administration Umeclidinium/Vilanterol 1 puff 06/29/24 10:05 Umeclidinium/Vilanterol 62.5-25 Mcg Ellipta INHALATION [facility]ILY[facility] Radiology Results: ITS Impressions Chest CTA 06/26/24 21:55 IMPRESSION: No pulmonary embolus. No aortic dissection. Findings consistent with patient's known interstitial lung disease demonstrating progression since 2019 examination. Mediastinal lymphadenopathy Findings within the interpolar region of the right kidney for which focused ultrasound may be performed nonemergently to evaluate its morphology. Renal Ultrasound 06/27/24 11:34 IMPRESSION: 1. 2.6 cm right renal cyst. Otherwise normal kidneys without hydronephrosis. Chest X-Ray 06/28/24 07:16 IMPRESSION: 1. Unchanged diffuse bilateral lung disease consistent with emphysema and chronic interstitial lung disease with likely superimposed pneumonia in the right upper lung zone. Labs Labs: Laboratory Results - last 24 hr 06/29/24 06:19 WBC 9.0 RBC 5.39 Hgb 15.1 Hct 45.8 MCV 85.0 MCH 28.0 MCHC 33.0 RDW 14.4 Plt Count 287 MPV 8.6 Immature Gran % (Auto) 1.9 H Neut % (Auto) 65.5 Lymph % (Auto) 21.1 [place] % (Auto) 6.9 Eos % (Auto) 3.8 Baso % (Auto) 0.8 Lymph # (Auto) 1.90 [place] # (Auto) 0.6 Eos # (Auto) 0.3 Baso # (Auto) 0.1 Abs Immat Gran (auto) 0.17 H Absolute Neuts (auto) 5.9 Absolute Nucleated RBC 0.000 Nucleated RBC % 0.0 ESR 25 H Sodium 134 L Potassium 3.9 Chloride 102 Carbon Dioxide 24 Anion Gap 8 BUN 12 Creatinine 1.00 Estim Creat Clear Calc 84 Estimated GFR > 60 Glucose 106 Calcium 8.8 Magnesium 2.2 Total Bilirubin 0.7 AST 120 H ALT 153 H Alkaline Phosphatase 103 C-Reactive Protein 5.1 H Total Protein 7.0 Albumin 3.1 L Procalcitonin 0.5 Pulse Oximetry SpO2 results: 93-95% on room air Attestation: I personally reviewed and interpreted this pulse oximetry as follows: Interpretation: need for supplemental oxygenation at this time Quality VTE Prophylaxis VTE prophylaxis: mechanical ordered
[2024-06-29] MEDS: UMECLIDINIUM/VILANTEROL 62.5-25 MCG ELLIPTA 1 PUFF INHALATION (14:17)
[2024-06-29] MEDS: AZITHROMYCIN 500 MG/NS 250 ML 500 MG/250 ML BAG 250 MG IVPB (20:31)
[2024-06-29] MEDS: ATORVASTATIN 40 MG TABLET PO (20:32)
[2024-06-30 06:00] VITALS: RESP 18
[2024-06-30 07:10] LABS: Basophils Absolute Auto 0.1 K/mm3 (0.0-0.1); Eosinophils Absolute Auto 0.6 K/mm3 (0-0.3); Eosinophils Percent Auto 6.9 % (0-4.4); Hematocrit 48.1 % (42.0-52.0); Hemoglobin 15.9 g/dL (14.0-18.0); Immature Granulocyte Absolute 0.14 K/mm3 (0.00-0.031); Immature Granulocyte Percent A 1.8 % (0-0.5); Lymphocytes Absolute Auto 1.92 K/mm3 (0.9-3.2); Lymphocytes Percent Auto 24.2 % (18.3-44.2); Mean Corpuscular HGB Conc 33.1 g/dl (32-36); Mean Corpuscular Hemoglobin 28.3 pg (26-34); Mean Corpuscular Volume 85.6 fl (80-100); Mean Platelet Volume 8.8 fl (7.4-10.4); Monocytes Absolute Auto 0.6 K/mm3 (0.1-0.6); Monocytes Percent Auto 7.8 % (2.6-8.5); Neutrophils Absolute Auto 4.6 K/mm3 (1.3-6.7); Neutrophils Percent Auto 58.3 % (45.5-73.1); Platelet Count Result 282 k/mm3 (150-375); Red Blood Count 5.62 M/mm3 (4.6-6.20); Red Cell Distribution Width 14.2 % (11.5-14.5); White Blood Count 7.9 K/mm3 (4.5-10.0)
[2024-06-30 07:32] LABS: Alanine Aminotransferase 173 U/L (6-50); Albumin Level 3.3 g/dL (3.5-5.1); Alkaline Phosphatase 97 U/L (38-126); Anion Gap 7 mmol/L (4-12); Aspartate Amino Transferase 102 U/L (17-59); Bilirubin,Total 0.7 mg/dL (0.2-1.3); Blood Urea Nitrogen 13 mg/dL (9-20); Calcium 8.9 mg/dL (8.4-10.2); Carbon Dioxide 25 mmol/L (22-30); Chloride 101 mmol/L (98-107); Estimated CRCL calculation 84 ml/min; Estimated Glomerular Filt Rate > 60; Glucose 113 mg/dL (65-110); Magnesium 2.2 mg/dL (1.6-2.3); Potassium 4.3 mmol/L (3.4-5.0); Sodium 133 mmol/L (137-145)
[2024-06-30 07:38] LABS: Free T4 Free Thyroxine 1.54 ng/dL (0.78-2.19)
[2024-06-30] MEDS: TAMSULOSIN HCL 0.4 MG CAPSULE PO (08:26)
[2024-06-30] MEDS: FAMOTIDINE 20 MG TABLET PO (08:27)
[2024-06-30] MEDS: guaiFENesin 12 HR 600 MG TABCR 1200 MG PO (08:27)
[2024-06-30] MEDS: GABAPENTIN 300 MG CAPSULE PO ×2 (08:27→12:57)
[2024-06-30] MEDS: amLODIPine BESYLATE 10 MG TABLET PO (08:28)
[2024-06-30] MEDS: HYDROcodone/acetaminophen (*CRX) 5-325 MG TABLET 1 TAB PO (08:40)
[2024-06-30] MEDS: UMECLIDINIUM/VILANTEROL 62.5-25 MCG ELLIPTA 1 PUFF INHALATION (09:53)
--- NOTE | 2024-06-30 12:56 | P.PNPL_ITS ---
Progress Note: A&P Assessment and Plan (1) Pneumonia, bacterial: Code(s): J15.9 - Unspecified bacterial pneumonia Status: Acute Assessment and Plan: Patient presents with 2-3 weeks of infectious complaints, leukocytosis, new consolidative infiltrates in his right upper lobe on his CT scan. COVID, influenza, RSV RT PCR studies negative. 06/27/24: Overall the patient tells me he is a little bit better but it is difficult for him to quantitate this. He says his energy is better, his cough is better, his right-sided chest pain is resolved and his phlegm is less voluminous. His white blood cell count is 13.7, his creatinine was 1.07. He is afebrile. His CRP is 16.6, procalcitonin is 1.1. His weight today is 104.5 kg up from admission weight of 103 kg. Patient remains on room air with saturatio ns 93%. Plan: Continue ceftriaxone and azithromycin, day 2. I will send urine for Legionella, urine for pneumococcal antigen, serum mycoplasma IgM and extended respiratory pathogen panel. 06/28/24: Patient tells me is a little bit better but he can not quantify this. He says he 5 still feels fatigued. He says at rest he is breathing fine. He walked to the bathroom and stated that he was breathing fine when he walked to the bathroom. He still has a cough with some yellow green phlegm. He is afebrile since 06/26 at 21:52. he states the breathing pain in his upper back is now gone. He complains of chronic lower back pain. His room air saturations are 94%. His white blood cell count is 9.9, his creatinine is 1.01, his procalcitonin is decreased from 1.1-0.7. Chest x-ray today shows no change in his right upper lobe infiltrate and diffuse interstitial infiltrates. He is getting DuoNebs now and he states he notices no difference. Plan: Patient continues to improve, Afebrile, leukocytosis has resolved, chest x-ray with no change, remains on room air. Continue ceftriaxone and azithromycin, day 3. He says he has some minimal difficulty expectorating his phlegm and I will add guaifenesin 1200 mg p.o. b.i.d. and a Cornet flutter valve. 06/29/2024: Her overall the patient tells me he is breathing at his baseline, his respiratory back pain is completely resolved. His phlegm is decreased but persists with some yellow and green phlegm. He is afebrile. White blood cell count 9.0, creatinine 1.0, CRP is decreased to 5.1, room air saturations are 94%. Plan: Continues to improve. Continue ceftriaxone and azithromycin day 4. Minimal improvement with guaifenesin and flutter valve. (2) COPD (chronic obstructive pulmonary disease): Code(s): J44.9 - Chronic obstructive pulmonary disease, unspecified Status: Acute Assessment and Plan: Patient carries a diagnosis of COPD. Fifty-six pack year tobacco use and currently smoking 1 pack per day, CT scan on 11/05/2017 with apical predominant paraseptal and centrilobular emphysema. He has been on inhalers off and on for 10 years. ABG on room air with pH of 7.. On admission with a pneumonia his white blood cell count was 17.2 with 0.3% eosinophils=51.6/uL. 06/27/24: Overall the patient tells me he is a little bit better but it is difficult for him to quantitate this. He says his energy is better, his cough is better, his right-sided chest pain is resolved and his phlegm is less voluminous. His white blood cell count is 13.7, his creatinine was 1.07. He is afebrile. His CRP is 16.6, procalcitonin is 1.1. His weight today is 104.5 kg up from admission weight of 103 kg. Patient remains on room air with saturations 93%. Plan: Currently the patient has no wheezing. He does have some shortness of breath and I will give him a therapeutic trial of bronchodilators with DuoNebs q.6 hours. I suspect he has an active bacterial infection and will not give him inhaled or systemic steroids at this time. I will check an alpha 1 anti trypsin. There is no evidence of hypercarbic respiratory failure. 06/28/24: no wheezing. Clinically improving. Minimal subjective improvement with DuoNebs. Plan: Continue DuoNebs q.6. no need for inhaled or systemic steroids at this time. 06/29/24: No wheezing. Clinically improving. I discontinue his DuoNebs and change in 2 Anoro Ellipta 62.5-25 at 1 puff q.day. I will perform an overnight oximetry on room air to determine if he qualifies for supplemental oxygen at night. (3) ILD (interstitial lung disease): Code(s): J84.9 - Interstitial pulmonary disease, unspecified Status: Acute Assessment and Plan: regarding his interstitial lung disease the patient is not aware of this diagnosis but has been told he has scarring on the lungs. he does not remember when he was told this or who told him this. For CT scan in our system from 11/05/2017 demonstrates mild peripheral and basilar dependent reticulations and septal thickening in the dependent portions of both lower lung thompson with some honeycombing. There is apical predominant paraseptal and centrilobular emphysema right upper lobe is extensively involved but they are also lesions in the left upper lobe. CT scan on 06/16/2019 shows very minimal progression of his lower lobe reticulations and honeycombing and no changes in his upper lobe paraseptal and centrilobular emphysema. CTA scan of the chest on 06/26/2024 with no pulmonary embolism. Very minimal progression of his lower lobe reticulations and honeycomb mean with continued upper lobe paraseptal and centrilobular emphysema with no change on the left but on the right there are increased infiltrates, thick horne and consolidations with no air-fluid levels. This CT pattern in my opinion represents a typical CT pattern of UIP with upper lobe panlobular emphysema.. Plan: Regarding other etiologies for his interstitial lung disease I will send serologies. I will order a SUSU screen that includes 11 different auto antibodies, an ANCA screen, a rheumatoid factor, anti CCP antibody, hypersensitivity pneumonitis panel, a CPK, an aldolase level, CRP, ESR and myomarker 3 plus profile. 06/28/24: clinically improved. Rheumatoid factor less than 12, CPK 65. Plan: Await remaining serologies. 06/29/24: Clinically improved. Plan: Serologies pending. (4) Daytime hypersomnia: Code(s): G47.10 - Hypersomnia, unspecified Status: Acute Assessment and Plan: Patient states he had a sleep study 10 years ago but does not know the results he was tried on auto PAP 5 to 20 last night and tolerated this for few hours but then his mouth was dry and he requested to take it off. He is not sure if he slept any better with the auto PAP. At this time will discontinue auto PAP and once he is clinically better will do overnight oximetry on room air to assess his oxygenation at night. If he has a sleep-related breathing disorder he said he would try machine with a nasal mask only. I would not treat him in the hospital with PAP until we have further defined whether not he has a sleep- related breathing disorder. Eempiric treatment with PAP will not treat any central related apneas (if he has them) and could provoke treatment related central apneas which would not be treated with PAP. He will need an outpatient sleep study to assess him for sleep-related breathing disorder. Plan: will monitor patient for nocturnal desaturations and apply supplemental oxygen if needed. 06/29/24: Patient remains on room air during the day. BMI 26.5. Plan: I will order an overnight oximetry on room air to assess for nocturnal hypoxemia. I will check TSH and free T4 in the morning. Plan plan: 1) He is stable for discharge today June 30, 2024 2) He can follow-up with us in 3-4 weeks, a gave him the office phone number [phone] 3) His overnight oximetry last night had problems with a technical component so there was no AHI but he did have an oxygen desaturation index of 19 with 12% or 45 minutes spent below 88% average saturation 90%, lowest saturation 84%; he qualifies for home oxygen 2 L a minute. He is interested in this however it will depend on the cost. 4) heavy smoker, tobacco and marijuana x 60 years, not quitting. 5) home on 9 days more of oral antibiotics, Levaquin and Augmentin to complete a 14 day treatment Subjective Date/time seen: 06/30/24 12:56 Interval history: 06/27/2024: This is a new pulmonary consult for COPD with pneumonia. 63-year-old man with a history of hypertension, hyperlipidemia, BPH, COPD and interstitial lung disease. Is difficult to get an accurate past medical history from the patient as he continues to say I do not remember. He says he was diagnosed with COPD a pproximately 10 years ago but does not know how that diagnosis was made. He does not remember having PFTs. He has been on and off of inhalers for the last 10 years and does not use them regularly. He smokes 1 pack per day since age 7 for a total of 56 pack years. He was exposed to secondhand smoke from both of his parents and from his until she 1 year ago. He has smoked marijuana and the last was 3-4 weeks ago. He denies any other illicit drugs years. 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 He denies working in the steel mill, coal mining, [employer] work, construction work. regarding his interstitial lung disease the patient is not aware of this diagnosis but has been told he has scarring on the lungs. he does not remember when he was told this or who told him this. For CT scan in our system from 11/05/2017 demonstrates mild peripheral and basilar dependent reticulations and septal thickening in the dependent portions of both lower lung thompson with some honeycombing. There is apical predominant paraseptal and centrilobular emphysema right upper lobe is extensively involved but they are also lesions in the left upper lobe. CT scan on 06/16/2019 shows very minimal progression of his lower lobe reticulations and honeycombing and no changes in his upper lobe paraseptal and centrilobular emphysema. Study maybe 10 years. He thinks this was done in [place] or [place]. He does not remember what the results were and he does not remember being told that he needs any machine with a mask to help him breathe at night. At baseline the patient tells me 1 year ago he could walk half a mi. after his a year ago he has had a steady decline in his health and currently states he can walk 1 block. He is a current smoker 1 pack per day. He has chronic cough with some some yellow to green phlegm production. 06/26/24: Over the last 2-3 weeks he has developed fatigue, worsening cough, subjective feelings of fever, shortness of breath, aches, intermittent wheezing and some chest pains. This has progressively gotten worse and he presented to the emergency room on 06/26/2024. in the emergency room his blood pressure is 133/67, heart rate 123, respiratory rate 26, room air saturations 94%. White blood cell count 17.2, creatinine 1.31, BNP 289, COVID influenza and RSV RT PCR studies negative. Rest room air blood gas 7.48/58/69. CTA scan of the chest on 06/26/2024 with no pulmonary embolism. Very minimal progression of his lower lobe reticulations and honeycomb mean with continued upper lobe paraseptal and centrilobular emphysema with no change on the left but on the right there are increased infiltrates, thick horne and consolidations with no air-fluid levels. Patient was started on ceftriaxone and azithromycin. 06/27/24: Overall the patient tells me he is a little bit better but it is difficult for him to quantitate this. He says his energy is better, his cough is better, his right-sided chest pain is resolved and his phlegm is less voluminous. His white blood cell count is 13.7, his creatinine was 1.07. He is afebrile. His CRP is 16.6, procalcitonin is 1.1. His weight today is 104.5 kg up from admission weight of 103 kg. Patient remains on room air with saturations 93%. 06/28/24: Patient tells me is a little bit better but he can not quantify this. He says he 5 still feels fatigued. He says at rest he is breathing fine. He walked to the bathroom and stated that he was breathing fine when he walked to the bathroom. He still has a cough with some yellow green phlegm. He is afebrile since 06/26 at 21:52. he states the breathing pain in his upper back is now gone. He complains of chronic lower back pain. His room air saturations are 94%. His white blood cell count is 9.9, his creatinine is 1.01, his procalcitonin is decreased from 1.1-0.7. Chest x-ray today shows no change in his right upper lobe infiltrate and diffuse interstitial infiltrates. He is getting DuoNebs now and he states he notices no difference. 06/29/2024: Her overall the patient tells me he is breathing at his baseline, his respiratory back pain is completely resolved. His phlegm is decreased but persists with some yellow and green phlegm. He is afebrile. White blood cell count 9.0, creatinine 1.0, CRP is decreased to 5.1, room air saturations are 94%. 06/30/24; hospital follow up; Dr Sotelo taking over for Dr Hernández. Overnight oxiemtry showed RENE 19.4, lowest saturation 84%, 45 min or 12 % of the night below 88%. The data did not capture an apnea hypopnea index, technical issues. Average saturation was 90%. pulse 62 to 96, average pulse 72, no suspected CS episodes. DATA: EXAMINATION: CTA chest PE protocol INDICATION: Shortness of breath and tachycardia. Pulmonary embolus suspected clinically COMPARISON: Reference is made to a CT examination of the chest dated 06/16/2019 FINDINGS: No filling defect is identified within the main or proximal pulmonary arteries. The main pulmonary artery is not enlarged. The thoracic aorta is of normal caliber without dissection. Redemonstration of peripheral honeycombing, panlobular emphysema, significant fibrotic change with a bilateral upper lobe predominance. No discrete nodules are appreciated. The cystic lesions within the right upper lobe now demonstrates thickened horne, an interval change. Varicose bronchiectasis is redemonstrated. Bulky calcified lymph nodes are identified within the right pulmonary hilum, unchanged from prior. Soft tissue attenuation foci are present within the bilateral pulmonary elena, possibly hilar lymph nodes minimally increased in size from 2020 examination. Multiple lymph nodes are redemonstrated within the mediastinum. The largest is within the subcarinal region measuring 16 mm in short axis dimension (increased from prior when it measured 10 mm). No acute compression fracture is present within the thoracic spine. No displaced rib fracture is noted. The heart is of normal size, without pericardial effusion. Within the upper abdomen: Small hiatal hernia is present The gallbladder is not visualized, presumably surgically absent. The bilateral adrenal glands are unremarkable. Fluid attenuation focus within the interpolar region of the right kidney, not included on the previous examination for which focused ultrasound may be performed to evaluate its morphology. IMPRESSION: No pulmonary embolus. No aortic dissection. Findings consistent with patient's known interstitial lung disease demonstrating progression since 2020 examination. Mediastinal lymphadenopathy Findings within the interpolar region of the right kidney for which focused ultrasound may be performed nonemergently to evaluate its morphology. 06/16/2019 EXAMINATION: CT lung screening INDICATION: Personal history of nicotine dependence. FINDINGS: Again scattered regions of peripheral honeycombing, emphysema, some fibrotic changes with upper lobe predominance. No suspicious focal nodules. Tracheobronchial tree is patent. Precarinal lymph node has decreased in size, upper limits of normal. There are no pleural or pericardial effusions. There is no pneumothorax. Heart normal in size. There is mild coronary arterial calcification, arterial sclerosis. Upper abdomen is unremarkable. There is thoracic spondylosis without osteoblastic or osteolytic lesions identified. IMPRESSION: Lung-RADS category 1, negative (<1%chance of malignancy); recommend continued LDCT screening in 1 year. Review of Systems Review of Systems: All systems reviewed & are unremarkable except as noted in HPI and below Objective Data Vital Signs Vital Signs: Vital Signs - 24 hr 06/29/24 14:17 06/29/24 14:17 06/29/24 15:36 Temperature 37.2 C Pulse Rate 87 95 Respiratory Rate 20 20 Blood Pressure 111/77 Pulse Oximetry 94 98 Oxygen Delivery Room Air Fraction of Inspired Oxygen 21 06/29/24 20:00 06/29/24 21:51 06/29/24 22:21 Temperature 36.7 C Pulse Rate 86 Respiratory Rate 18 Blood Pressure 130/80 Pulse Oximetry 93 93 Oxygen Delivery Room Air Room Air Fraction of Inspired Oxygen 21 06/30/24 06:00 Temperature Pulse Rate Respiratory Rate 18 Blood Pressure Pulse Oximetry Oxygen Delivery Fraction of Inspired Oxygen Intake/Output Intake/Output: Intake & Output 06/27/24 06/28/24 06/29/24 06/30/24 23:59 23:59 23:59 23:59 Intake Total 1317 2430 2450 220 Output Total 400 Balance 917 2430 2450 220 Meds/Results Medications: Active Medications Generic Name Dose Route Start Last Admin Trade Name Freq PRN Reason Stop Dose Admin Acetaminophen 650 mg 06/27/24 14:09 Acetaminophen 325 Mg Tablet PO Q4H PRN Mild Pain (1-3) or Fever Hydrocodone Bitart/Acetaminophen 1 tab 06/28/24 04:51 06/30/24 08:40 Hydrocodone/Acetaminophen (*Crx) 5-325 Mg Tablet PO 1 tab Q6H PRN Administration Pain Rated 4-6 Albuterol/Ipratropium 3 ml 06/29/24 10:02 Ipratropium 0.5 Mg/Albuterol Sulfate 2.5 Mg Ampul.Neb 3 Ml INHALATION Q6HRT PRN Wheezing Amlodipine Besylate 10 mg 06/27/24 09:00 06/30/24 08:28 Amlodipine Besylate 10 Mg Tablet PO 10 mg DAILY SHANNAN Administration Atorvastatin Calcium 40 mg 06/27/24 21:00 06/29/24 20:32 Atorvastatin 40 Mg Tablet PO 40 mg HS SHANNAN Administration Famotidine 20 mg 06/27/24 09:00 06/30/24 08:27 Famotidine 20 Mg Tablet PO 20 mg BID SHANNAN Administration Gabapentin 300 mg 06/27/24 09:00 06/30/24 08:27 Gabapentin 300 Mg Capsule PO 300 mg TID SHANNAN Administration Guaifenesin 1,200 mg 06/28/24 09:30 06/30/24 08:27 Guaifenesin 12 Hr 600 Mg Tabcr PO 1,200 mg Q12HR SHANNAN Administration Ceftriaxone Sodium 1 gm in 50 mls @ 100 mls/hr 06/26/24 21:00 06/29/24 20:31 Rocephin 1 Gm/Ns 50 Ml IVPB 100 mls/hr HS SHANNAN Administration Azithromycin 500 mg in 250 mls @ 250 mls/hr 06/26/24 21:00 06/29/24 20:31 Zithromax IVPB 250 mls/hr HS SHANNAN Administration Tamsulosin HCl 0.4 mg 06/27/24 09:00 06/30/24 08:26 Tamsulosin Hcl 0.4 Mg Capsule PO 0.4 mg DAILY SHANNAN Administration Umeclidinium/Vilanterol 1 puff 06/29/24 10:05 06/30/24 09:53 Umeclidinium/Vilanterol 62.5-25 Mcg Ellipta INHALATION 1 puff DAILYRT SHANNAN Administration Radiology Results: ITS Impressions Chest CTA 06/26/24 21:55 IMPRESSION: No pulmonary embolus. No aortic dissection. Findings consistent with patient's known interstitial lung disease demonstrating progression since 2019 examination. Mediastinal lymphadenopathy Findings within the interpolar region of the right kidney for which focused ultrasound may be performed nonemergently to evaluate its morphology. Renal Ultrasound 06/27/24 11:34 IMPRESSION: 1. 2.6 cm right renal cyst. Otherwise normal kidneys without hydronephrosis. Chest X-Ray 06/30/24 06:33 Impression: Stable patchy consolidation right upper lobe. Stable underlying diffuse chronic interstitial disease. Labs Labs: Laboratory Results - last 24 hr 06/28/24 06/30/24 05:26 06:38 WBC 7.9 RBC 5.62 Hgb 15.9 Hct 48.1 MCV 85.6 MCH 28.3 MCHC 33.1 RDW 14.2 Plt Count 282 MPV 8.8 Immature Gran % (Auto) 1.8 H Neut % (Auto) 58.3 Lymph % (Auto) 24.2 [place] % (Auto) 7.8 Eos % (Auto) 6.9 H Baso % (Auto) 1.0 Lymph # (Auto) 1.92 [place] # (Auto) 0.6 Eos # (Auto) 0.6 H Baso # (Auto) 0.1 Abs Immat Gran (auto) 0.14 H Absolute Neuts (auto) 4.6 Absolute Nucleated RBC 0.000 Nucleated RBC % 0.0 Sodium 133 L Potassium 4.3 Chloride 101 Carbon Dioxide 25 Anion Gap 7 BUN 13 Creatinine 1.00 Estim Creat Clear Calc 84 Estimated GFR > 60 Glucose 113 H Calcium 8.9 Magnesium 2.2 Total Bilirubin 0.7 AST 102 H ALT 173 H Alkaline Phosphatase 97 Total Protein 7.0 Albumin 3.3 L TSH 3.180 Free T4 1.54 [place] Serum Ab Cancelled Saccharo. viridis Ab Cancelled T. candidus Antibody Cancelled T. vulgaris Antibody Cancelled Aspergillus fum #1 Ab Cancelled Micropolyspora faeni Ab Cancelled
--- NOTE | 2024-06-30 13:23 | PM.DS ---
DS: Admitting Diagnosis Discharge Date 06/30/24 Admitting Diagnosis Right lower lobe pneumonia DS: Discharge Diagnosis Discharge Diagnosis (1) Pneumonia, bacterial: Code(s): J15.9 - Unspecified bacterial pneumonia Status: Acute (2) COPD (chronic obstructive pulmonary disease): Code(s): J44.9 - Chronic obstructive pulmonary disease, unspecified Status: Acute (3) Sepsis: Code(s): A41.9 - Sepsis, unspecified organism Status: Acute (4) Hypertension: Code(s): I10 - Essential (primary) hypertension Status: Acute (5) ILD (interstitial lung disease): Code(s): J84.9 - Interstitial pulmonary disease, unspecified Status: Acute DS: Summary Hospital Course Hospital Course: 63 year old male with past medical history of COPD, hypertension, hyperlipidemia, and BPH who presents to the hospital for shortness of breath and cough. He states that he started to feel unwell about two and a half weeks prior to presentation, becoming increasingly weak where he was unable to get out of bed. He states he developed a productive cough with greenish/yellow phlegm and shortness of breath that continued to worsen during that time. He notes subjective fevers, chills, and body aches. He used his albuterol inhaler with minimal relief. He denies sick contacts. He denies chest pain, palpitations, nausea/vomiting and abdominal pain. ED workup: CBC with WBC 17.2, H/H 16/48.3, PLT 290. CMP with Na 134 and K 4.3. BUN/Cr 16/1.31. BNP 289. PT/INR 15.2/1.2. ABG: pH 7.480, pCO2 24.9, pO2 69.2, HCO3 18.1 Viral PCR: negative for Flu/COVID/RSV. Chest CTA showed no pulmonary embolus, no aortic dissection, findings consistent with patient's known interstitial lung disease demonstrating progression since 2020 examination, mediastinal lymphadenopathy, and findings within the interpolar region of the right kidney. Patient given sepsis bolus x1 and started on IV rocephin and azithromycin. Patient continued on Rocephin and azithromycin for duration of hospital stay. Pulmonology consulted on the case. He was put on DuoNebs. Guaifenesin as needed to help with drying up his secretions. Blood cultures no growth . He will be discharged on Anoro Ellipta. He was put on overnight pulse oximetry and qualified for 2L overnight. Is recommended that he follow up with pulmonology in 3-4 weeks. Plan to send him home on 9 days more of oral antibiotics. Time Spent with Patient Time attestation: Total time spent providing and/or coordinating discharge services: Exam Narrative: GENERAL: Comfortable, no acute distress HENMT: moist mucous membranes EYES: EOM intact b/l RESPIRATORY: clear to auscultation, no increased respiratory effort CARDIO: Regular rate and rhythm SKIN/EXTREMITIES: no rashes, no edema, no redness or tenderness DS: Data Data Completed and Pending Labs on day of discharge: Labs from last 24 hours 06/30/24 06/30/24 06/28/24 06:38 06:35 05:26 WBC 7.9 RBC 5.62 Hgb 15.9 Hct 48.1 MCV 85.6 MCH 28.3 MCHC 33.1 RDW 14.2 Plt Count 282 MPV 8.8 Immature Gran % (Auto) 1.8 H Neut % (Auto) 58.3 Lymph % (Auto) 24.2 Bull[place] % (Auto) 7.8 Eos % (Auto) 6.9 H Baso % (Auto) 1.0 Lymph # (Auto) 1.92 [place] # (Auto) 0.6 Eos # (Auto) 0.6 H Baso # (Auto) 0.1 Abs Immat Gran (auto) 0.14 H Absolute Neuts (auto) 4.6 Absolute Nucleated RBC 0.000 Nucleated RBC % 0.0 Sodium 133 L Potassium 4.3 Chloride 101 Carbon Dioxide 25 Anion Gap 7 BUN 13 Creatinine 1.00 Estim Creat Clear Calc 84 Estimated GFR > 60 Glucose 113 H Calcium 8.9 Magnesium 2.2 Total Bilirubin 0.7 AST 102 H ALT 173 H Alkaline Phosphatase 97 Total Protein 7.0 Albumin 3.3 L TSH 3.180 Free T4 1.54 Sixes Serum Ab Pending Cancelled Anti-Cycl Citrul Peptide Pending Saccharo. viridis Ab Pending Cancelled T. candidus Antibody Pending Cancelled T. vulgaris Antibody Pending Cancelled Aspergillus fum #1 Ab Pending Cancelled Micropolyspora faeni Ab Pending Cancelled Preliminary micro results at discharge 06/28/24 13:25 Sputum Culture - Preliminary Sputum 06/26/24 21:15 Blood Culture - Preliminary Blood 06/26/24 21:15 Blood Culture - Preliminary Blood Discharge Plan Discharge Consulting providers: Osorio Hernández Discharging Clinician: Maryjane Taylor Patient Disposition: Home, Self-Care Activity: as tolerated Diet: regular Discharge Instructions: Emphysema exacerbation prevention: -Smoking cessation is pertinent -Avoid irritants such as dust or chemicals -Seek treatment when symptoms worsen -Exercising daily can help decrease breathing problems -Use pursed lip breathing. Pursed lip breathing can be used any time you feel short of breath again especially be helpful before restarting activity. Count to 2 while you take a deep breath per your nose. Slowly breathe through your mouth up with her lips slightly puckered. You should make quiet hissing sound as to breathe out. Repeat this exercise 4 to 5 times a day. Once your used to doing pursed lip breathing you can use any time you need air. -Sleep with her upper body raise if you have trouble breathing lying down and elevate your head. -Get vaccinated against COVID, flu and pneumonia. Seek immediate help if: -shortness of breath that is so severe you can talk -setting cold sweat -coughing up blood -confusion, dizziness, feeling faint Contact health provider if: -You have a fever -Difficulty doing usual activities -Increased sputum production beyond what is normal for you -Increase use of inhalers or breathing treatments -Wheezing more than normal for you -Swelling in legs or ankles Patient Instructions: Antibiotic Form Patient Language: Ukrainian Stand Alone Forms: General Discharge Information Follow-up/Referrals: Osorio Hernández MD [Physician] - Discharge Medications: New guaifenesin [Mucus Relief ER] 600 mg Tablet Extended Release 12hr 1,200 mg PO Q12HR Qty: 60 0RF levofloxacin 750 mg tablet 750 mg PO DAILY Qty: 9 0RF Anoro Ellipta 62.5-25 mcg/actuation Blister With Device 1 inh inhalation DAILYRT Qty: 1 0RF amoxicillin-pot clavulanate 875-125 mg tablet 1 tablet PO Q12H Qty: 18 0RF Continued albuterol sulfate 2.5 mg /3 mL (0.083 %) solution for nebulization 2.5 mg continuous nebulization PRN PRN (Reason: difficulty breathing) hydrocodone-acetaminophen 5-325 mg tablet 1 tablet PO Q12H Patient Comments: 2 x day, morning and evening famotidine 20 mg tablet 20 mg PO BID tamsulosin 0.4 mg capsule 0.4 mg PO DAILY amlodipine 10 mg tablet 10 mg PO DAILY diclofenac sodium 50 mg tablet,delayed release (DR/EC) 50 mg PO BID Qty: 40 0RF albuterol sulfate [Ventolin HFA] 90 mcg/actuation HFA aerosol inhaler 1 puff INHALATION BID gabapentin 300 mg capsule 300 mg PO TID atorvastatin [Lipitor] 40 mg tablet 40 mg PO HS Discontinued diclofenac sodium 50 mg tablet,delayed release (DR/EC) 50 mg PO DAILY Date of admission: 06/27/24 00:04 Primary Care Provider: JonasSergio Admitting Provider: Steph Lea Attending physician on admission: Marie Watters Condition: Improved Hospitalist MIPS Heart Failure (Exclusion) Patient has history of Heart Transplant or Left Ventricular Assistive Device?: No IF YES, STOP HERE Heart Failure (Qualifier) Patient has current or prior documentation of LVEF less than or equal to 40%, or mod/servere depressed LVSF?: No IF NO, STOP HERE
[2024-06-30 13:55] VITALS: BP 140/70; PULSE 84; RESP 18; TEMP 35.8; O2SAT 93
[2024-06-30 16:05] LABS: ANA Cascade Screen NEGATIVE (NEGATIVE)
[2024-06-30 16:28] LABS: Pneumococcal Antigen Urine NOT DETECTED
[2024-07-02 15:19] LABS: Adenovirus DNA Not Detected (Not Detected); Chlamydophila pneumoniae Not Detected (Not Detected); Coronavirus 229E Not Detected (Not Detected); Coronavirus HKU1 Not Detected (Not Detected); Coronavirus NL63 Not Detected (Not Detected); Coronavirus OC43 Not Detected (Not Detected); Human Metapneumovirus Not Detected (Not Detected); Human Parainfluenza Virus 1 Not Detected (Not Detected); Human Parainfluenza Virus 2 Not Detected (Not Detected); Human Parainfluenza Virus 3 Not Detected (Not Detected); Human Parainfluenza Virus 4 Not Detected (Not Detected); Human RSV B Not Detected (Not Detected); Influenza A Not Detected (Not Detected); Influenza B Not Detected (Not Detected); Mycoplasma pneumoniae Not Detected (Not Detected); Rhinovirus/Enterovirus Not Detected (Not Detected)
[2024-07-02 16:12] LABS: Anti Cyclic Citrullinated Pept <16 UNITS
[2024-07-02 17:54] LABS: Mycoplasma IgM Antibody Titer 64 U/mL
[2024-07-02 20:13] LABS: Legionella pneumophila Ag Ur NOT DETECTED
[2024-07-02 21:38] LABS: JO-1 AB <11 SI (<11); MI-2 Alpha Ab <11 SI (<11); MI-2 Beta Ab <11 SI (<11); NXP-2 AB <11 SI (<11); TIF1 Gamma Ab <11 SI (<11)
[2024-07-05 09:44] LABS: ANCA Screen NEGATIVE (NEGATIVE)
[2024-07-05 10:59] LABS: Aspergillus fumigatus NEGATIVE (NEGATIVE)
== END 2024-06-30 14:20 | disposition home or self-care (01) | DRG 871 ==
LOC: ANHED 21:47 → ANH3MEDSUR 06-27 01:25
PROVIDERS: Internal Medicine Pulmonary Disease; Nurse Practitioner; Registered Nurse; Student in an Organized Health Care Education/Training Program; Admitting Provider Internal Medicine; Emergency Provider Emergency Medicine; PCP Nurse Practitioner Family; Visit Provider Internal Medicine Critical Care Medicine
DX: A41.9 Sepsis, unspecified organism (principal); J15.9 Unspecified bacterial pneumonia; U07.1 COVID-19; J44.0 Chronic obstructive pulmonary disease with (acute) lower respiratory infection; J84.9 Interstitial pulmonary disease, unspecified; E78.5 Hyperlipidemia, unspecified; F17.210 Nicotine dependence, cigarettes, uncomplicated; F12.90 Cannabis use, unspecified, uncomplicated; G47.10 Hypersomnia, unspecified; I10 Essential (primary) hypertension; J43.2 Centrilobular emphysema; N40.0 Benign prostatic hyperplasia without lower urinary tract symptoms; Z20.822 Contact with and (suspected) exposure to COVID-19; Z90.49 Acquired absence of other specified parts of digestive tract
CPT/HCPCS: 36415; 36600; 71045; 71275; 76775; 80053; 81003; 82085; 82104; 82375; 82550; 82805; 83050; 83605; 83735; 83880; 84145; 84182; 84439; 84443; 85018; 85025; 85610; 85652; 85730; 86036; 86038; 86140; 86200; 86225; 86235; 86364; 86430; 86738; 87040; 87070; 87205; 87449; 87633; 87637; 87899; 93005; 94640; 94660; 94667; 94762; 96361; 96374; 99285; A9270; J0456; J0696; J7030; Q9967

== ENCOUNTER 2024-09-16 09:28 | Inpatient (IN) | payer MEDICARE, SELFPAY ==
[2024-09-16] VITALS (16 sets, daily range): BP systolic 132–145; BP diastolic 74–90; PULSE 81–112; RESP 16–24; TEMP 36.2–36.6; O2SAT 93–96; BMI 29.3
--- NOTE | ~2024-09-16 | XR_ITS ---
CHEST RADIOGRAPH, PA AND LATERAL CLINICAL HISTORY: chest pain, shortness of breath . COMPARISON: 06/30/2024 TECHNIQUE: PA and lateral views of the chest. FINDINGS The cardiomediastinal silhouette is unremarkable. Redemonstration of patchy consolidation of the right upper lobe, improved from most recent examinatio n. Coarse interstitial markings are identified bilaterally, unchanged from prior. Peribronchial thickening is redemonstrated. No focal infiltrate is present. IMPRESSION: Chronic interstitial change with peribronchial thickening and patchy consolidation of the right upper lobe, as detailed above. Reviewed, dictated and finalized at location A. IMPRESSION: Chronic interstitial change with peribronchial thickening and patchy consolidat ion of the right upper lobe, as detailed above.
--- NOTE | 2024-09-16 09:30 | ECG_ITS ---
Test Date: 2024-09-16 09:36:43 Measurements Intervals [place] Rate: 97 P: 46 RI: 154 QRS: 16 QRSD: 82 T: 67 QT: 326 QTc: 416 Interpretive Statements SINUS RHYTHM BORDERLINE ST-T WAVE ABNORMALITY- HIGH LATERAL LEADS BASELINE ARTIFACT- I, II, III, AVR, AVL, AVF, V1-V3 BORDERLINE ECG Compared to ECG 06/26/2024 19:30:22 HEART RATE HAS DECREASED Electronically Signed On 09-16-2024 09:56:15 CDT by Kristopher Egan D.O.
[2024-09-16 09:53] LABS: Basophils Absolute Auto 0.1 K/mm3 (0.0-0.1); Eosinophils Absolute Auto 1.6 K/mm3 (0-0.3); Eosinophils Percent Auto 15.8 % (0-4.4); Hematocrit 55.9 % (42.0-52.0); Hemoglobin 18.1 g/dL (14.0-18.0); Immature Granulocyte Absolute 0.02 K/mm3 (0.00-0.031); Immature Granulocyte Percent A 0.2 % (0-0.5); Lymphocytes Absolute Auto 1.56 K/mm3 (0.9-3.2); Lymphocytes Percent Auto 15.9 % (18.3-44.2); Mean Corpuscular HGB Conc 32.4 g/dl (32-36); Mean Corpuscular Hemoglobin 28.5 pg (26-34); Mean Corpuscular Volume 88.2 fl (80-100); Mean Platelet Volume 9.5 fl (7.4-10.4); Monocytes Absolute Auto 0.6 K/mm3 (0.1-0.6); Monocytes Percent Auto 5.7 % (2.6-8.5); Neutrophils Percent Auto 61.4 % (45.5-73.1); Platelet Count Result 194 k/mm3 (150-375); Red Blood Count 6.34 M/mm3 (4.6-6.20); Red Cell Distribution Width 14.6 % (11.5-14.5); White Blood Count 9.8 K/mm3 (4.5-10.0)
[2024-09-16 10:01] LABS: Alanine Aminotransferase 39 U/L (6-50); Alkaline Phosphatase 97 U/L (38-126); Anion Gap 11 mmol/L (4-12); Aspartate Amino Transferase 34 U/L (17-59); Bilirubin,Total 1.1 mg/dL (0.2-1.3); Blood Urea Nitrogen 10 mg/dL (9-20); Calcium 9.5 mg/dL (8.4-10.2); Carbon Dioxide 30 mmol/L (22-30); Chloride 99 mmol/L (98-107); Estimated Glomerular Filt Rate > 60; Glucose 115 mg/dL (65-110); Lipase 109 U/L (23-300); Potassium 4.3 mmol/L (3.4-5.0); Sodium 140 mmol/L (137-145)
--- OUTSIDE RECORDS SUMMARY | 2024-09-16 10:02 | XMS_ITS | Clinical Summary ---
Author Organization [facility] Address [address] [place] [phone] Phone Care Team Providers Care Desktop Publishing Associate Name Role Phone Unavailable Primary Care Provider Unavailabl e Social History Tobacco Use Types Packs/Day Years Used Date Smoking Tobacco: Never Assessed Sex and Gender Information Value Date Recorded Sex Assigned at Not on file Legal Sex Male 10:42 AM CDT Gender Identity Not on file Sexual Orientation Not on file Plan of Treatment Health Maintenance Due Date Last Done Comments DTAP/TDAP/TD VACCINES (1 - Tdap) 1977 PNEUMOCOCCAL VACCINE 50+ YEARS (1 of 2 - PCV) 09/14/18 78 COLORECTAL SCREENING 09/15/2003 Colorectal Cancer Screening 09/15/2003 FIT-DNA Q 3 years 09/15/2003 FIT/FOBT Q 1 year 09/15/2003 Flex Sig/CT Colonography Q 5 years 09/15/2003 ZOSTER VACCINE (1 of 2) 2008 RSV VACCINE (60+ or ) (1 - Risk 60-74 years 1-dose series) 2018 INFLUENZA VACCINE (#1) 2024 Insurance [facility] [id number] [place] [id number]
--- OUTSIDE RECORDS SUMMARY | 2024-09-16 10:02 | XMS_ITS | Data Portability ---
Author Organization [place] [employer], Main Office Address [address] [place] [address] Care Team Providers Care Act English Tutor Name Role Phone SERGIO MCDANIEL Primary Care Provider [phone] Assessment Encounter Date Assessment Date Assessment LastModified by Organization Details LastModified Time 11/06/2023 11/06/2023 Oversite provider was present on site during this visit I attest that I have provided general supervision for chronic care management. [email or web address] Not available 11/06/2023 16:41:25 Plan of Treatment Reminders Order Date Submit Date Provider Last Modified By Organization Details Last Modified Time Details Appointments None recorded. Lab None recorded. Referral None recorded. Procedures None recorded. Surgeries None recorded. Imaging None recorded. Medication Orders gabapentin 300 mg capsule 2022 023 [id number], [address] [facility], [place], [place], [id number], 15:06:50 Patient TargetsNo targets recorded. Patient Instructions Encounter Date Encounter Id Patient Instructions Last Modified By Organization Details Last Modified Time 10/01/2023 [id number] albuterol inhalation Not available 10/23/2023 16:19:32 shortness of breath: care instructions Not available 10/23/2023 16:19:32 11/06/2023 [id number] Quitting Tobacco : Care Instructions Not available 03/06/2024 15:26:14 statins: care instructions Not available 03/06/2024 15:26:14 reducing risk of another heart attack with medicine: care instructions Not available 03/06/2024 15:26:14 12/12/2023 [id number] Learning About B E FAST: Stroke Warning Signs Not available 03/05/2024 09:36:11 reducing risk of another heart attack with medicine: care instructions Not available 03/05/2024 09:36:11 Quitting Tobacco : Care Instructions Not available 03/05/2024 09:36:11 Reason for Referral None Reported. Results Created Date Observation Date Name Description Value Unit Range Abnormal Flag Note LastModifiedBy Organization Detail LastModifiedTime 10/26/1910/26/2023 CT, chest , w/o contr ast No observ ation record ed. [email or web address] [facility] [address], [place], [address], 11/27/2023 16:13:54 06/26/19 25 06/26/2024 imagi ng/di agnos tic resul t No observ ation record ed. [address] [address], [place], [address], 06/26/2024 23:15:48 06/27/19 25 06/27/2024 imagi ng/di agnos tic resul t No observ ation record ed. [address], [place], [address], 06/27/2024 12:24:08 06/27/1906/27/2024 imagi ng/di agnos tic resul t No observ ation record ed. [address], [place], [address], 06/27/2024 13:39:24 06/28/1906/28/2024 imagi ng/di agnos tic resul t No observ ation record ed. [address], [place], [address], 06/28/2024 13:11:05 06/30/19 25 06/30/2024 imagi ng/di agnos tic resul t No observ ation record ed. [address] [facility], [place], [address], 06/30/2024 09:09:07 Result Notes None recorded. Problems Name Problem SNOMED Code Status Onset Date Resolution Date Notes Provider Name and Address Organization Details Recorded Time Hearing disorder 063470487 Active Not Available [facility] 3 16:12:58 Chronic obstructiv e pulmonary disease 57724765 Active Not Available [facility] 3 16:12:58 Illiteracy 184668653 Active 2021 Not Available [facility] 3 16:12:58 Anti-nucle ar factor detected 606460457 Active 2022 Not Available [facility] 3 16:12:58 Interstiti al lung disease 143983846 Active 2021 Not Available [facility] 3 16:12:58 Gastroesop hageal reflux disease 264357087 Active Not Available [facility] 3 16:12:58 Urinary symptoms 683555811 Active Not Available [facility] 3 16:12:58 Degenerati on of lumbar interverte bral disc 72058668 Active 2021 Not Available [facility] 3 16:12:58 Disorder of sleep-wake cycle 270682045 Active Not Available [facility] 3 16:12:58 Vitamin D deficiency 16151637 Active Not Available [facility] 3 16:12:58 Dyslipidem ia 826189435 Active Not Available [facility] 3 16:12:58 Prostate specific antigen above reference range 529989273 Active Not Available [facility] 3 16:12:58 Periodic limb movement disorder 949114672 Active Not Available [facility] 3 16:12:58 Clubbing of nail 3619331 Active 2022 Not Available [facility] 3 16:12:58 Functional diarrhea 49905823 Active Not Available [facility] 3 16:12:58 Cough 34646911 Active Not Available [facility] 3 16:12:58 Hyperlipid emia 70863117 Active 2021 Not Available [facility] 3 16:12:58 Dyspnea on exertion 54585559 Active 2021 Not Available [facility] 3 16:12:58 Cigarette smoker 91240717 Active 2021 Not Available [facility] 3 16:12:58 Prediabete s 349323132 Active 2021 Not Available [facility] 3 16:12:58 Snoring 76259884 Active Not Available [facility] 3 16:12:58 Smoker 42385471 Active Not Available [facility] 3 16:12:58 Fatigue 08818572 Active Not Available [facility] 3 16:12:58 Pulmonary emphysema 41881906 Active 2022 Not Available [facility] 3 16:12:59 Chronic constipati on 658066675 Active 2022 Not Available [facility] 3 16:12:58 Dizziness 168353202 Active 2022 Not Available [facility] 3 16:12:58 Insomnia 149286837 Active 2022 Not Available [facility] 3 16:12:58 Right side sciatica 8055639957862 01 Active 2022 Not Available [facility] 3 16:12:58 Nicotine dependence 68852153 Active 2022 Not Available [facility] 3 16:12:58 Mood disorder 45831508 Active 2022 KIKE Barnhart [address], [place], [address] , [employer] 3 15:12:35 Depressive disorder 82312713 Active 2022 KIKE Barnhart [address], [place], [address] , [employer] 3 15:12:54 Anterior chest wall pain 151616555 Active 2022 KIKE Barnhart [address], [place], [address] , [employer] 3 14:43:01 Hordeolum externum of lower eyelid of right eye 9167945030193 04 Active 2022 Dylonkarina Mcdaniel, NUCLE[employer] PLANT TECHNICAL ADVISOR [address] [facility], [facility] [address], [place], [address] , [facility] [employer] [facility] 3 14:44:34 Essential hypertensi on 47289131 Active 2023 Beronica Villa CCM [facility] [employer] [facility] 4 14:11:56 Notes:Medical History: Nicot ine dependence Bilateral hearing loss/tinnitus Early REM onset Obesity with mild OSAHS, AHI = 3, 05/04/16 Hypertension Hyperlipidemia AIDE BPH PLMD Vit D deficiency Thoracic spondylosis Lumbar DDD Procedure History: Right leg fracture 1969 Left leg plate placement 1996 Cholecystectomy 2016 Some problems listed in Document: #[id number] could not be added to this patient's chart. Please review this document and add these problems to the patient's chart manually as needed. Problem Notes None recorded. Procedures Surgical History Date Name Laterality Status Provider Name and Address Organization Details Recorded Time 01/14/20 Chronic care management services completed Beronica Villa CCM [facility] [employer] [facility] 01/14/2024 14:18:59 12/18/19 Chronic care management services completed Beronica Villa [facility] [employer] [facility] 12/18/2023 09:38:56 11/06/19 Chronic care management services completed Beronica Villa [facility] [employer] [facility] 11/06/2023 16:43:30 10/01/19 Chronic care management services completed Beronica Villa [facility] [employer] [facility] 10/01/2023 14:16:26 open reduction of fracture with internal fixation completed Not Available [facility] 08/02/2022 00:47:35 Gallbladder Surgery completed Not Available [facility] 08/02/2022 00:47:35 Imaging Results Imaging Date Name Status LastModified by Mallorie jones Details LastModified Time 10/26/2023 CT, chest, w/o contrast completed [email or web address] [facility] [address] [place], [address], 11/27/2023 16:13:54 06/26/2024 imaging/diagn ostic result active [address] [facility], [place], [address], 06/26/2024 23:15:48 06/27/2024 imaging/diagn ostic result active [address] [facility], [place], [address], 06/27/2024 12:24:08 06/27/2024 imaging/diagn ostic result active [address] [facility], [place], [address], 06/27/2024 13:39:24 06/28/2024 imaging/diagn ostic result active [address] [address], [place], [address], 06/28/2024 13:11:05 06/30/2024 imaging/diagn ostic result active [address] [address], [place], [address], 06/30/2024 09:09:07 Procedure Notes None recorded. Medical Equipment None [...] month by intramusc ular route. 05/07 completed [facility] [phone] -[phone]- [phone] Not Available Not Available Not [...] Not Available Not Available Not Available [employer] Plain-3 Krill Oil 1,000 mg-230 mg-60 mg capsule [...] Last Updated DateTime 180.34 cm 32.9 kg/m2 926043. 8 g 98.4 [degF] 110 /min 94 % 94 % 140 mm[Hg] 80 mm[Hg] Marielena Nunez LPN [place] [employer] [facility] [employer] [facility] 14:21:35 Date Recorded Body height Provider Name an d Address Organization Details Last Updated DateTime 10/01/2023 180.34 cm Beronica Villa [facility] [employer] [facility] [employer] 10/01/2023 14:03:41 Date Recorded Body height Provider Name an d Address Organization Details Last Updated DateTime 11/06/2023 180.34 cm Beronica Villa [facility] [employer] [facility] [employer] [facility] 11/06/2023 16:28:41 Date Recorded Body height Provider Name an d Address Organization Details Last Updated DateTime 12/12/2023 180.34 cm Beronica Villa [facility] [employer] [facility] [employer] 12/18/2023 09:37:15 Date Recorded Body height Provider Name an d Address Organization Details Last Updated DateTime 01/10/2024 180.34 cm Beronica Villa [facility] [employer] [facility] [employer] 01/14/2024 14:17:20 Social History Question Answer Notes LastModified by Organizat ion Details LastModified Time Tobacco Smoking Status Current Every Day Smoker Not Available [facility] 08/02/2022 00:45:45 Do You Have An Advance Directive? No Packet Sent MIGRATION.76057 45484 Information not available 08/02/2022 What Is Your Level Of Alcohol Consumption? None MIGRATION.31615 97929 Information not available 08/02/2022 What Is Your Level Of Caffeine Consumption? Occasional 2 Cups Per Day Coffee MIGRATION.29044 45446 Information not available 08/02/2022 How Much Tobacco Do You Chew? None MIGRATION.23158 77338 Information not available 08/02/2022 In The 14 Days Before Symptom Onset, Have You Had Close Contact With A Laboratory-confir med COVID-19 While That Case Was Ill? No MIGRATION.11153 97716 Information not available 08/02/2022 In The 14 Days Before Symptom Onset, Have You Had Close Contact With A Person Who Is Under Investigation For COVID-19 While That Person Was Ill? No MIGRATION.06816 85775 Information not available 08/02/2022 What Type Of Diet Are You Following? REGULAR MIGRATION.63151 00735 Information not available 08/02/2022 Which Illicit Or Recreational Drugs Have You Used? Marijuana MIGRATION.56428 25818 Information not available 08/02/2022 Do You Or Have You Ever Used E-cigarettes Or Vape? Former User Of Electronic Cigarettes Tried It But Didnt Like It MIGRATION.26824 31074 Information not available 08/02/2022 Are There Any Guns Present In Your Home? No MIGRATION.62570 12834 Information not available 08/02/2022 How Many Years Have You Used Illicit Or Recreational Drugs? 54 MIGRATION.72466 67847 Information not available 08/02/2022 Do You Use Insect Repellent Routinely? No MIGRATION.13124 41961 Information not available 08/02/2022 What Was The Date Of Your Most Recent Tobacco Screening? 03/14/2022 MIGRATION.21596 71323 Information not available 08/02/2022 What Is Your Current Pack Years? 30ormorepackye ars MIGRATION.33331 03826 Information not available 08/02/2022 Do You Have Any Pets? No MIGRATION.37723 11878 Information not available 08/02/2022 Do You Use Your Seat Belt Or Car Seat Routinely? No Information not available 10/03/2022 Do You Have Smoke And Carbon Monoxide Detectors In Your Home? Yes MIGRATION.51091 17938 Information not available 08/02/2022 At What Age Did You Start Smoking Tobacco? 7 MIGRATION.31724 11006 Information not available 08/02/2022 Do You Or Have You Ever Used Smokeless Tobacco? Former Smokeless Tobacco User MIGRATION.66313 25768 Information not available 08/02/2022 How Much Tobacco Do You Smoke? 1 PPD MIGRATION.06677 40097 Information not available 08/02/2022 Do You Feel Stressed (tense, Restless, Nervous, Or Anxious, Or Unable To Sleep At Night)? [id number] Information not available 10/03/2022 Do You Use Any Illicit Or Recreational Drugs? Yes MIGRATION.80240 33313 Information not available 08/02/2022 Do You Use Sunscreen Routinely? No MIGRATION.37149 26866 Information not available 08/02/2022 Has Tobacco Cessation Counseling Been Provided? No MIGRATION.41920 08793 Information not available 08/02/2022 Have You Recently Traveled Abroad? No MIGRATION.35885 11319 Information not available 08/02/2022 Have You Used IV Drugs? No MIGRATION.72553 93394 Information not available 08/02/2022 Do You Have Any Dietary Restrictions? No MIGRATION.41357 93915 Information not available 08/02/2022 Sex: Unknown Functional Status Question Answer Note LastModified by Organizat ion Details LastModified Time What is your exercise level? Occasional MIGRATION.[id number] 26 Information not available 08/02/2022 Mental Status None recorded. Family History Relationship Description Onset Age of this Age Resolved Age Notes LastModified by Organization Details LastModified Time Mother Malignant tumor of lung MIGRATION.249 [id number] Not available 08/02/2022 00:47:37 Mother Diabetes mellitus MIGRATION.715 4173193 Not available 08/02/2022 00:47:37 Mother Hypertensive disorder MIGRATION.140 4617735 Not available 08/02/2022 00:47:37 Mother Hyperlipidem ia MIGRATION.699 6277256 Not available 08/02/2022 00:47:37 Mother Lupus erythematosu s MIGRATION.006 1890626 Not available 08/02/2022 00:47:37 Father Malignant tumor of lung MIGRATION.688 5666360 Not available 08/02/2022 00:47:37 Brother Lupus erythematosu s MIGRATION.109 9512646 Not available 08/02/2022 00:47:37 Brother Infarct myocardiecto my MIGRATION.555 5364548 Not available 08/02/2022 00:47:37 Medical History Condition Response BLINDNESS N RHEUMATIC FEVER N KIDNEY STONES N BLADDER PROBLEMS N MRSA N OTHER # 1 N POLIO N LUNG DISEASE/DISORDER N RADIATION / CHEMOTHERAPY N COPD N Other # 2 N BLOOD DISEASES N SURGERY N EAR OR HEARING PROBLEMS Y MUMPS N BOWEL PROBLEMS Y FEMALE PROBLEMS / INFECTIONS N DEPRESSION (INCLUDING POST ) N STROKE/TIA N [...] GLAUCOMA N FOOT PROBLEM N DIVERTICULITIS N CHICKENPOX N SLEEP APNEA N ALLERGIES/HAYFEVER N INFECTIOUS DISEASE N HEART ARRHYTHMIA N PROSTATE N INSOMNIA N HIGH CHOLESTEROL / HYPERLIPIDEMIA N HYPERTHYROIDISM N EYE PROBLEMS N EATING DISORDER N NEUROLOGICAL PROBLEMS N EDEMA N CHRONIC PAIN SYNDROME N HYPOTHYROIDISM N CAROTID BLOCKAGE N CONSTIPATION N BACK / NECK PROBLEMS Y HAVE YOU BEEN HOSPITALIZED OR SEEN IN [facility] IN THE PAST YEAR ? N ATHEROSCLEROSIS [...] DISORDER Y ALZHEIMER'S DISEASE N PAIN N HERPES N DEMENTIA N HEADACHES/MIGRAINES N SEIZURES/EPILEPSY N VASCULAR DISEASE N PACEMAKER N DIZZINESS N HEART DISEASE/HEART PROBLEMS N KIDNEY DISEASE N DEVELOPMENTAL OR BEHAVIORAL DISORDERS N MULTIPLE SCLEROSIS N SCARLET FEVER N MENTAL DISORDER/ILLNESS N CARDIAC ARRHYTHMIA N CANCER: SPECIFY N PNEUMONIA N ATRIAL FIBRILLATION N Gall Stones N PULMONARY EMBOLISM N AUTOIMMUNE DISEASE N Past Encounters Encounter ID Performer Location Encounter Start Date Encounter Closed Date Diagnosis/Indication Diagnosis SNOMED-CT Code Diagnosis ICD10 Code Diagnosis Note [id number] [facility] Primary Care [address] [place] [address] 08/03/2020 00:00:00 08/04/2020 20:06:03 [id number] [facility] [place] [address] [place] [address] 09/07/2020 00:00:00 09/07/2020 20:31:02 [id number] [facility] [place] [address] [place] [address] 10/26/2020 00:00:00 10/26/2020 16:55:23 [id number] [facility] [place] [address] [place] [address] 12/01/2020 00:00:00 12/01/2020 15:33:52 [id number] [facility] [place] [address] [place] [address] 12/29/2020 00:00:00 12/29/2020 18:24:17 [id number] [facility] [place] [address] [place] [address] 01/28/2021 00:00:00 01/28/2021 18:33:40 [id number] [facility] [place] [address] [place] [address] 02/25/2021 00:00:00 02/25/2021 18:23:19 [id number] [facility] [place] [address] [place] [address] 03/25/2021 00:00:00 03/25/2021 19:53:06 [id number] [facility] [place] [address] [place] [address] 05/19/2021 00:00:00 05/19/2021 20:01:31 [id number] [facility] [place] [address] [place] [address] 06/16/2021 00:00:00 06/16/2021 17:27:45 [id number] [facility] [place] [address] [place] [address] 07/29/2021 00:00:00 07/29/2021 17:40:43 [id number] [facility] [place] [address] [place] [address] 2021 00:00:00 2021 20:06:05 [id number] [facility] [place] [address] [place] [address] 10/12/2021 00:00:00 10/12/2021 20:45:37 [id number] [facility] [place] [address] [place] [address] 11/23/2021 00:00:00 11/23/2021 17:45:02 [id number] [facility] [place] [address] [place] [address] 12/21/2021 00:00:00 12/21/2021 17:36:54 [id number] [facility] [place] [address] [place] [address] 01/18/2022 00:00:00 01/18/2022 17:24:49 [id number] [facility] [place] [address] [address] 01/25/2022 00:00:00 01/25/2022 17:16:50 [id number] [facility] [place] [address] [place] [address] 02/15/2022 00:00:00 02/15/2022 17:10:32 [id number] [facility] [place] [address] [place] [address] 03/15/2022 00:00:00 03/15/2022 19:21:31 [id number] [facility] [place] [address] [place] [address] 03/23/2022 00:00:00 03/23/2022 17:58:00 [id number] [facility] [place] [address] [facility] [address] [place] [address] 04/12/2022 00:00:00 04/12/2022 17:00:16 [id number] [facility] [place] [address] [facility] [address] [place] [address] 05/12/2022 00:00:00 05/12/2022 15:33:03 [id number] [facility] Pul[facility] [place] [address] [place] [address] 05/19/2022 00:00:00 05/19/2022 15:25:50 [id number] [facility] [place] [address] [facility] [address] [place] [address] 06/09/2022 00:00:00 06/09/2022 15:56:27 [id number] [facility] Pulmon[facility] [place] [address] [place] [address] 07/03/2022 00:00:00 07/03/2022 15:58:16 [id number] [facility] [place] [address] [place] [address] [address] [place] [address] 07/07/2022 00:00:00 07/07/2022 15:21:12 [id number] KIKE Barnhart [facility] [place] [address] [place] [address] [address] [place] [address] 08/04/2022 15:13:04 08/04/2022 15:43:19 Chronic constipation 726763989 K59.09 Chronic, likely exacerbate d by opioid [...] sooner if new symptoms develop.Al so given Linzess 145mcg samples to trial. Degenerati on of lumbar intervertebral disc 85961947 M51.36 ChronicPai n down to 4-5/10 with [...] borrowing of medication .UDS appropriat e (03/15/22) .[place] PDMP checked 07/03/22 by BERNARD Patel. Dizziness 067500121 R42 New problemMay be med s/eEncoura ged pt to take meds with food. [id number] KIKE Barnhart [facility] Primary Care [address] [place] [address] 08/11/2022 17:12:17 08/11/2022 17:36:29 Dizziness 142287214 R42 New problemLik kimberly medication s/e. Takes cyclobenza norman, zolpidem, and hydrocodon e.[facility] ed pt to take meds with food, avoid taking the above medication s at the same time. Medication review done 063785315 Z76.89 Reviewed medication s and updated medication list. Discussed risks/bene fits of each medication . [id number] KIKE [facility] Pulmonolo gy Abril Nunn [address] [place] [address] 09/05/2022 15:35:34 09/05/2022 16:20:26 Interstitial lung disease 686600227 J84.[address] 06/16/19 with peripheral honeycombi ng, emphysema, BUL predominan t fibrosisCX [facility], honeycombi ng.No bronchiect asis notedCould represent CTD - ILDI have again discussed this in detail with him today and expressed the urgency of workup for underlying conditions Referral for ILD clinic again today, he will consider Pulmonary emphysema [address] chestI have recommende d LakeishaivaYash has this at home and will start daily as per directions Anti-nucle ar factor detected 767861056 R76.8 Lab workup as follows:hy persensiti vity [...] Smoking cessation counseling and techniques reviewed at length. Literature reviewed.A void triggers, support groups.Dis traction techniques Greater than 3 but less than 10 minutes spent discussing cessation. Declines NRT.Discus sed Rx options if needed in the future. [id number] KIKE Barnhart [facility] [address] [facility] [address] [place] [address] 09/05/2022 16:32:22 09/05/2022 17:13:40 Chronic constipation 754801944 K59.09 Chronic, likely exacerbate d by opioid [...] needed, or sooner if new symptoms develop.Hernesto Serrano 145mcg samples to trial last visit. Degenerati on of lumbar intervertebral disc 65425291 M51.36 Chronic, recent exacerbati on with right-side [...] appropriat eHydrocodo ne 5/325mg BID PRN Insomnia 670053641 G47.0 0 ChronicSx improve with zolpidem 10mg QHS; however, pt has been out of medication for nearly six weeks.Refi katherine luna good sleep habits:Sle ep hygiene (set bedtime, [...] prior to bedtime. Right side sciatica 3202 399209 00079 M54.31 New problem, improvingL ikely secondary to [...] ED for neurologic symptoms or incontinen ce. [id number] KIKE Barnhart [facility] Primary Care [address] [place] [address] 10/03/2022 14:39:40 10/03/2022 15:14:33 Right side sciatica 2707078943 14004 M54.31 New problem, improvingL ikely secondary to [...] ce. Degenerati on of lumbar intervertebral disc 82762536 M51.36 Chronic, recent exacerbati on with right-side d sciaticaPa in normally down to 4-5/10 with hydrocodon e. Will continue with hydrocodon e for pain.Pain with standing/w alking/sit ting. Unable to safely climb, stoop, kneel, bend, twist, push/pull more than a few lbs of weight. No improvemen t with steroid injections on 12/03/19. Pain has been ongoing/ch alexandra for several years. Pt declined any further injections b/c he only got improvemen t for 2 days. No changes in function or pain.Pt encouraged to do PT exercises at home as tolerated. Continue with anti-infla mmatory, calcium, vit d, and mag as previously directed.O K to use otc lidocaine patches per package instructio kimberly.Pt takes pain medication only as prescribed . Denies any lending, selling, or borrowing of medication .UDS appropriat e (03/15/22) , repeat next visit.[place] checked and appropriat eHydrocodo ne 5/325mg BID PRN Insomnia [id number] G47.0 0 ChronicSx improve with zolpidem 10mg [...] hours prior to bedtime. Chronic constipation 236 049682 K59.09 Chronic, likely exacerbate d by opioid [...] Linzess 145mcg samples to trial previously . [id number] KIKE Barnhart S_[facility] Primary Care [facility] [address] [place] [address] 11/07/2022 14:48:58 11/07/2022 15:38:11 Right side sciatica [id number] 94696 M54.31 Chronic, stableLike ly secondary to degenerati [...] ce. Degenerati on of lumbar intervertebral disc 64403309 M51.36 Chronic, recent exacerbati on with right-side [...] any lending, selling, or borrowing of medication .[facility] appropriat e (03/15/22) , repeat today.[place] checked and appropriat eHydrocodo ne 5/325mg BID PRN Medication monitoring 39 [id number] Z51.81 [id number] KIKE Barnhart [facility] Primary Care [place] [address] [place] [address] 12/28/2022 14:23:26 12/28/2022 15:31:51 Degeneration of lumbar intervertebral disc 47403549 M51.36 Chronic, recent exacerbati on with right-side [...] 5/325mg BID PRN Right side sciatica 3202 647495 04944 M54.31 Chronic, stableLike ly secondary to degenerati [...] neurologic symptoms or incontinen ce. Depressive disorder 7568 6483 F32.A New problem--M ood Disorder-e ncouraged pt to consider counseling . Denies any SI/HI at this time. Pt declines medication at this time. [id number] KIKE Barnhart S_[facility] Primary Care [place] [address] [place] [address] 01/25/2023 14:25:40 01/25/2023 16:29:41 Anterior chest wall pain 911170902 R07.89 New problemRef erred pain from thoracic spine issues. Suspect pt is compensati ng with chest wall muscles.Al though pt describes sx as being on his right side, will check ekg today to evaluate for cardiac etiology.D iscussed s/s that warrant emergency evaluation . Hordeolum externum of lower eyelid of right eye [id number] 75830 H00.012 New problemVis ible stye to medial aspect of right lower lid. reports pt unable to tolerate eye gtts, will give erythromyc in ointment instead. Degenerati on of lumbar intervertebral disc 07790111 M51.36 Chronic,St ill experienci ng exacerbati on [...] 5/325mg BID PRN Right side sciatica 3202 171826 35577 M54.31 Chronic, stableLike ly secondary to degenerati [...] neurologic symptoms or incontinen ce. Depressive disorder 2355 3519 F32.A Not improvedSx are worsened by chronic pain. Highly encouraged pt to consider counseling . Denies any SI/HI at this time. Pt declines medication at this time. [id number] Genie Ferguson, NUCLEAR PLANT TECHNICAL ADVISOR-BC [facility] Pulmonolo gy [place] [address] [place] [address] 02/28/2023 13:58:13 02/28/2023 15:49:59 Interstitial lung disease 207613391 J84.[address] 06/16/19 with peripheral honeycombi ng, emphysema, BUL predominan t fibrosisCX R [facility], honeycombi ng.No bronchiect asis notedCould represent CTD - ILDI have again discussed this in detail with him today and expressed the urgency of workup for underlying conditions Pulmonary emphysema [address] chestStart StioltoRX to pharmacy today Anti-nucle ar factor detected 948617415 R76.8 Lab workup as follows:hy persensiti vity [...] Smoking cessation counseling and techniques reviewed at length. Literature reviewed.A void triggers, support groups.Dis traction techniques Greater than 3 but less than 10 minutes spent discussing cessation. Declines NRT.Discus sed Rx options if needed in the future. [id number] KIKE Barnhart [facility] [address] [place] [address] 03/21/2023 14:10:24 03/21/2023 15:31:48 Degeneration of lumbar intervertebral disc 03311124 M51.36 Chronic, no significan t interval changeStil [...] (11/07/22)Un able to check [place]MP via [place].Hyd rocodone 5/325mg BID PRN, no refill needed. Right side sciatica 3202 173577 71518 M54.31 ChronicLik kimberly secondary to degenerati ve [...] time. Pt declines medication at this time. [id number] [address] [place] [address] 10/01/2023 13:54:07 10/11/2023 08:01:57 Chronic obstructive pulmonary disease 21196726 J44.9 Depressive disorder 3548 9007 F32.A Z73.3 Not improvedSx are worsened by chronic pain. Highly encouraged pt to consider counseling . Denies any SI/HI at this time. Pt declines medication at this time. [id number] [address] [place] [address] 11/06/2023 16:25:13 11/06/2023 16:47:18 Chronic obstructive pulmonary disease 93741558 J44.9 Illiteracy 774648096 Z55 .0 Cigarette smoker 3045815 7 F17.210 Hyperlipidemia 27652298 E78.5 Essential hypertension 43810715 I10 [id number] [address] [place] [address] 12/18/2023 09:32:50 03/05/2024 17:14:15 Prostate specific antigen above reference range 668762636 R97.20 Hyperlipidemia 95492053 E78.5 Essential hypertension 03520589 I10 Cigarette smoker 3013968 7 F17.[id number] [place] [address] 01/14/2024 14:13:09 03/05/2024 17:14:44 Cigarette smoker 24803275 F17.210 Periodic l imb movement disorder 994917559 G47.61 D50.8 E83.42 Degenerati on of lumbar intervertebral disc 46126812 M51.36 . Right side sciatica 3202 431835 13236 M54.31 Goals Section Goal Description Progress Status Start Date LastModified by Organization Details LastModified Time Recreati onal Activiti es Participates in recreational activities NoChange active 2023 Beronica Villa CCM Information not available 10/01/2023 18:15:24 Adequate Sleep Achieves adequate, well-rested sleep with minimal disruption NoChange active 2023 Beronica Villa CCM Information not available 10/01/2023 18:15:24 Chronic Conditio n Action Plan Follows action plan for any worsening of chronic condition(s) as per care team recommendation (s) Regressing active 2023 Beronica Villa CCM Information not available 12/18/2023 13:48:58 Stress Manageme nt Reports effective management of stress NoChange active 2023 Beronica Villa CCM Information not available 10/01/2023 18:15:24 Smoking Cessatio n Quits smoking Regressing active 2023 Beronica Villa CCM Information not available 12/18/2023 13:49:01 Activiti es of Daily Living Performs activities of daily living independently or with minimal assistance NoChange active 2023 Beronica Villa CCM Information not available 10/01/2023 18:15:24 Medicati on Regimen Follows medication regimen as per care team recommendation (s) Progressing active 2023 Beronica Villa CCM Information not available 12/18/2023 13:49:04 Family and Social Support Reports family and/or social support needs are met NoChange active 2023 Beronica Villa CCM Information not available 10/01/2023 18:15:25 Quality of Life Reports satisfaction with quality of life NoChange active 2023 Beronica Villa CCM Information not available 10/01/2023 18:15:25 Diet Adherenc e Follows prescribed or recommended diet NoChange active 2023 Beronica Villa CCM Information not available 10/01/2023 18:15:25 Follow-u p Appointm ent(s) Attends referral and/or follow-up appointment(s) as per care team recommendation (s) Regressing active 2023 Beronica Villa CCM Information not available 12/18/2023 13:49:08 Effectiv e Coping Manages life events with effective coping methods Progressing active 2023 Beronica Villa CCM Information not available 12/18/2023 13:49:10 Nutritio nal Risks Reductio n Reports reduction in nutritional risks NoChange active 2023 Beronica Villa CCM Information not available 10/01/2023 18:15:25 Knowledg e of Disease or Conditio n Demonstrates understanding of disease(s) or condition(s) Progressing active 2023 Beronica Villa CCM Information not available 12/18/2023 13:49:12 Weight Maintena nce Exhibits stable weight with normal fluctuation NoChange active 2023 Beronica Villa CCM Information not available 11/06/2023 20:58:13 Exercise Regularl y Follows a regular exercise regimen or instructed exercise plan as per care team recommendation (s) Regressing active 2023 Beronica Villa CCM Information not available 12/18/2023 13:49:16 Smoking Cessatio n Quits smoking Regressing active 2023 Beronica Villa CCM Information not available 12/18/2023 13:49:18 Lipid Levels Maintains normal lipid levels as defined by care team NoChange active 2023 Beronica Villa CCM Information not available 11/06/2023 20:58:13 Diet Adherenc e Follows prescribed or recommended diet Regressing active 2023 Beronica Villa CCM Information not available 12/18/2023 13:49:22 Blood Pressure Maintains blood pressure goal as defined by care team Progressing active 2023 Beronica Villa CCM Information not available 12/18/2023 13:49:23 Health Concerns Section Related Observation LastModified by Organization Detai ls LastModified Time None Recorded Concern Status LastModified by Organization Details LastModified Time Hyperlipidemia Active Beronica Villa CCM Not Available 0 11/06/2023 20:57:47 Chronic obstructive lung disease Active Beronica Villa, CCM Not Available 10/01/2023 18:0 0:48 Cough Active Beronica Villa CCM Not Available 09/30 18:01:00 Cigarette smoker Active Beronica Villa CCM Not Available 11/06/2023 20:57:24 Essential hypertension Active Beronica Villa CCM Not Deloris ilable 11/06/2023 20:58:25 Advance Directives Directive N: Packet sent Payers Encounter Date Sequence Insurance Name Policy Number Policy Alejandra Covered Member ID Alejandra Member ID Guarantor Name 03/21/2023 1 [employer] (MEDICARE REPLACEMENT/AD VANTAGE - HMO) [id number] Clifford D Hartman [id number] Clifford D Hartman 03/21/2023 2 [place] WHEN MEDICARE OR MEDICARE REPLACEMENT PRIMARY) Clifford Hartman [id number] Clifford D Hartman 10/01/2023 1 [employer] (MEDICARE REPLACEMENT/AD VANTAGE - HMO) [id number] Clifford D Hartman [id number] Clifford D Hartman 11/06/2023 1 [employer] (MEDICARE REPLACEMENT/AD VANTAGE - HMO) [id number] Clifford D Hartman [id number] Clifford D Hartman 12/12/2023 1 [employer] (MEDICARE REPLACEMENT/AD VANTAGE - HMO) [id number] Clifford D Hartman [id number] Clifford D Hartman 01/10/2024 1 [employer] (MEDICARE REPLACEMENT/AD VANTAGE - HMO) [id number] Clifford D Hartman [id number] Clifford D Hartman Notes Date Note Type [...] for 4 week f/u appt. 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 KIKE Barnhart [address] [facility] [address], [place], [address], [facility] [employer] 03/21/2023 19:09:40
--- OUTSIDE RECORDS SUMMARY | 2024-09-16 10:02 | XMS_ITS | Clinical Summary ---
Author Organization [facility] [employer] Address [address] [place] [address] Care Team Providers Care Scout Sniper Name Role Phone Sergio Mcdaniel APRN-SUPERINTENDENT [employer] Primary Care Provider Source Comments [facility] [employer],non-owned Affiliates and Associated Physician Practices is amultiple site organization consisting of ambulatory clinics and hospital sitesin [place], [place], [place] and [place]. This disclosure is being madepursuant to the Care Everywhere program and may not contain all information available regarding this patient. Last updated 18.[facility] [employer] [facility] Allergies No known active allergies Medications * Be aware that medications may not be up to date on this document. Alwaysverify current medications with the patient. diazePAM (VALIUM) 10 MG tablet Take 10 mg by mouth 3 times daily as needed Active naproxen sodium (ALEVE) 220 MG tablet Take 220 mg by mouth 2 times daily Active diclofenac sodium EC (VOLTAREN) 50 MG tablet Take 50 mg by mouth 2 times daily Active cyclobenzaprine (FLEXERIL) 10 MG tablet Take 10 mg by mouth 3 times daily as needed for Muscle Spasms Active vitamin D, ergocalciferol, (DRISDOL) 83871 UNITS capsule Take 50,000 Units by mouth every 30 days Active TAMSULOSIN HCL PO Take 0.4 mg by mouth once daily Active omeprazole (PRILOSEC) 40 MG capsule Take 40 mg by mouth daily before breakfast Active [place]-3 Fatty Acids (FISH OIL) 1360 MG Active amLODIPine (NORVASC) 5 MG tablet Take 1 tablet every day by oral route for 90 days. Active traMADol (ULTRAM) 50 MG tablet TK 1 T PO TID PRN P Active terbinafine (LAMISIL) 250 MG tablet Take 1 tablet every day by oral route for 90 days. Active Active Problems No known active problems Social History Tobacco Use Types Packs/Day Years Used Date Smoking Tobacco: Every Day Cigarettes 1 45 Smokeless Tobacco: Never Sex and Gender Information Value Date Recorded Sex Assigned at Not on file Legal Sex Male 12:28 PM CDT Gender Identity Not on file Sexual Orientation Not on file Last Filed Vital Signs Vital Sign Reading Time Taken Comments Blood Pressure - - Pulse - - Temperature - - Respiratory Rate - - Oxygen Saturation - - Inhaled Oxygen Concentration - - Weight 96.6 kg (213 lb) 01/01/2019 9:47 AM CDT Height 182.9 cm (6') 01/01/2019 9:47 AM CDT Body Mass Index 28.89 01/01/2019 9:47 AM CDT Plan of Treatment Health Maintenance Due Date Last Done Comments COLOGUARD (AGES 45-75) - COL ON CA SCREENING 1958 COLON MONITORING 1958 COLONOSCOPY - COLON CA SCREENING 1958 CT COLONOGRAPHY - COLON CA SCREENING 1960 Colorectal Cancer Screening 1958 FIT - COLON CA SCREENING 1958 FLEX SIG - COLON CA SCREENING 1958 LIPID TESTING 1958 HIV SCREENING 1973 HEPATITIS C SCREENING 09/09/1976 DTAP/TDAP/TD VACCINES (1 - Tdap) 1977 PNEUMOCOCCAL VACCINE 50+ (1 of 2 - PCV) 1977 LUNG CANCER SCREENING 2008 ZOSTER VACCINE (1 of 2) 2008 SCREENING FOR DIABETES 02/26/2018 AAA SCREENING 09/15/2023 COVID-19 VACCINE (1 - 2023-2 5 season) 2024 DEPRESSION SCREENING 06/04/2024 MEDICARE AWV CALENDAR YEAR 2024 INFLUENZA VACCINE (Season Ended) 2025 Respiratory Syncytial Virus (RSV) Vaccine Pt: or over 60 yrs (1 - 1-dose 75+ series) 2033 HEPATITIS B VACCINE Aged Out No longe r eligible based on patient's age to complete this topic HIB VACCINE Aged Out No longer eligi ble based on patient's age to complete this topic HPV VACCINE Aged Out No longer eligi ble based on patient's age to complete this topic MENINGOCOCCAL (Group B) VACC INE SHARED DECISION-MAKING Aged Out No longer eligibl e based on patient's age to complete this topic MENINGOCOCCAL GROUPS A/C/Y/W VACCINE Aged Out No longer eligible b ased on patient's age to complete this topic Insurance [facility] Address: [address] [place] [address] * Guarantor: RAH HARTMAN Account Type Relation to Patient Date of Phone Billing Address Personal/Family 1960 [facility] [place], [place] [id number] [place], [place] [address]EM Member Subscriber Plan / Payer (Ef fective 2008-Present) Name:Rah Hartman Relation to Subscriber:Self Name:RAH HARTMAN Payer ID:[id number] (NAIC) Type:PPO Address: [facility] [id number] [place] [phone] Care Teams Scout Sniper Relationship Specialty Start Date End Date Sergio Mcdaniel, TRAUMA COORDINATOR-SUPERINTENDENT [employer] [address] [place] [phone] PCP - General 01/01/19
[2024-09-16 10:12] LABS: Troponin I < 0.012 ng/mL (0.000-0.034)
[2024-09-16] MEDS: ASPIRIN 81 MG CHEWABLE TABLET 324 MG PO (10:13)
[2024-09-16 10:14] LABS: Prothrombin Time 13.9 Seconds (11.1-14.7)
[2024-09-16 10:15] LABS: Partial Thromboplastin Time 27.4 Seconds (22.3-36.8)
[2024-09-16] MEDS: IPRATROPIUM 0.5 MG/ALBUTEROL SULFATE 2.5 MG AMPUL.NEB 3 ML INHALATION ×3 (10:31→19:58)
[2024-09-16 10:38] LABS: NT Pro B Type Natriuretic Pept 41 pg/mL (19.9-100)
[2024-09-16] MEDS: methylPREDNISolone SOD SUCC 125 MG VIAL IV PUSH (10:52)
--- OUTSIDE RECORDS SUMMARY | 2024-09-16 11:38 | XMS_ITS | Clinical Summary ---
Author Organization [facility] Address [address] [place] [phone] Phone Care Team Providers Care Power Hammer Operator Name Role Phone Unavailable Primary Care Provider [...] series) 2018 INFLUENZA VACCINE (#1) 2024 Insurance [facility] [address] [place] [id number]
--- OUTSIDE RECORDS SUMMARY | 2024-09-16 11:38 | XMS_ITS | Clinical Summary ---
Author Organization [facility] [employer] Address [address] [place] [address] Care Team Providers Care Preparation Center Coordinator Name Role Phone Sergio Mcdaniel APRN-REPAIRER [employer] Primary Care Provider Source Comments [facility] [employer],non-owned Affiliates and Associated Physician Practices is amultiple site organization consisting of ambulatory clinics and hospital sitesin [place], [place], [place] and [place]. This disclosure is being madepursuant to the Care Everywhere program and may not contain all information available regarding this patient. Last updated 18.[facility] [employer] Allergies No known active allergies Medications * [...] Muscle Spasms Active vitamin D, ergocalciferol, (DRISDOL) 76655 UNITS capsule Take 50,000 Units by mouth every 30 days Active TAMSULOSIN HCL PO Take 0.4 mg by mouth once daily Active omeprazole (PRILOSEC) 40 MG capsule Take 40 mg by mouth daily before breakfast Active [place]-3 Fatty Acids (FISH OIL) 1360 MG Active [...] patient's age to complete this topic Insurance [facility] Address: [address] [place] [address] * Guarantor: RAH HARTMAN Account Type Relation to Patient Date of Phone Billing Address Personal/Family 1960 [facility] [place], [place] [id number] [place], [place] [address]EM Member Subscriber Plan / Payer (Ef fective 2008-Present) Name:Rah Hartman Relation to Subscriber:Self Name:RAH HARTMAN Payer ID:[id number] (NAIC) Type:PPO Address: [facility] [address] [place] [phone] Care Teams Preparation Center Coordinator Relationship Specialty Start Date End Date Sergio Mcdaniel, REPRODUCTION PRODUCTION MANAGER-REPAIRER [employer] [address] [place] [phone] PCP - General 01/01/19
--- NOTE | 2024-09-16 12:18 | ECG_ITS ---
Test Date: 2024-09-16 12:23:40 Measurements Intervals [place]a Rate: 93 P: 26 HI: 167 QRS: 12 QRSD: 74 T: 62 QT: 327 QTc: 409 Interpretive Statements SINUS RHYTHM BASELINE ARTIFACT- I, II, III, AVR, AVL, AVF, V2 NORMAL ECG Compared to ECG 09/16/2024 09:36:43 No significant changes Electronically Signed On 09-16-2024 12:57:00 CDT by Kristopher Egan D.O.
--- NOTE | 2024-09-16 12:29 | ED.GENADULT ---
HPI - General Adult General Chief complaint: Chest Pain Stated complaint: CP, shortness of breath] Time Seen by Provider: 09/16/24 09:48 History of Present Illness HPI narrative: Patient is a 64-year-old gentleman who presents emergency department with chief complaint of shortness of breath cough and chest discomfort patient reports had a cough productive of yellowish-green sputum. The patient states he normally wears 2 L of oxygen at night but now is having where it throughout the day the patient states that he has been wheezing and actually has audible wheezes just a normal conversation at this time Related Data Home Medications ?Medication ?Instructions ?Recorded ?Confirmed ?Last Taken ?Type albuterol sulfate 2.5 mg/3 mL 2.5 mg continuous nebulization PRN 01/16/22 09/16/24 09/16/24 History (0.083 %) solution for nebulization PRN difficulty breathing amlodipine 10 mg tablet 10 mg PO DAILY 01/16/22 09/16/24 09/15/24 History famotidine 20 mg tablet 20 mg PO BID 01/16/22 09/16/24 09/15/24 History hydrocodone 5 mg-acetaminophen 325 1 tablet PO Q12H 01/16/22 09/16/24 09/15/24 History mg tablet tamsulosin 0.4 mg capsule 0.4 mg PO DAILY 01/16/22 09/16/24 09/15/24 History albuterol sulfate 90 mcg/actuation 1 puff inhalation BID 06/27/24 09/16/24 09/15/24 History aerosol inhaler (Ventolin HFA) atorvastatin 40 mg tablet (Lipitor) 40 mg PO HS 06/27/24 09/16/24 09/14/24 History gabapentin 300 mg capsule 300 mg PO TID 06/27/24 09/16/24 09/15/24 History Allergies Allergy/AdvReac Type Severity Reaction Status Date / Time No Known Allergies Allergy Verified 09/16/24 10:10 Review of Systems Review of Systems: A 10 system review of systems was completed on the patient and is negative except for what is stated in the HPI. Nursing and ancillary documentation was reviewed. [facility] Past Medical History Medical History Hyperlipidemia Benign prostate hyperplasia ILD (interstitial lung disease) COPD (chronic obstructive pulmonary disease) Hypertension Surgical History Surgical History History of surgery on lower extremity LLE with plate and screws History of cholecystectomy Family History Family History Mother Lung cancer Type II diabetes mellitus Father Lung cancer Sibling Cerebrovascular accident Social History Social History Social History: Patient lives home alone. No pets. . Code status: Full Smoking packs per day: 1 Smoking cigarettes per day: 20.0 Years smoked: 50 Smoking pack-years: 50.00 Smoking status: Current every day smoker Tobacco type: cigarettes Alcohol intake: never Substance use: current Substance use type: marijuana Last use: 2-3 weeks ago Do You Feel Safe in your Home?: Yes Lack of Transportation: No Lack of Food: Never True Current Housing: I Have Housing Concerned About Future Housing: No Difficulty Paying Gas/Electric Bills: No Difficulty Paying for Meds: No Currently Unemployed: No Education: Grade School Difficulty w/ Childcare or Family Care: No Living arrangements: alone Spiritual care concerns: No Exam Narrative: GENERAL: Well-appearing, well-nourished, and in no acute distress. HEAD: Normocephalic, atraumatic. EYES: PERRLA and EOMI. ENT: Nares clear, no rhinorrhea or epistaxis. Mucous membranes moist. NECK: Supple. CHEST: A diffuse wheezing to auscultation. No respiratory distress. HEART: Regular rate and rhythm. No murmur heard. Normal peripheral pulses. ABDOMEN: Soft, nontender, nondistended, normal active bowel sounds. EXTREMITIES: Normal range of motion. No edema. SKIN: Warm, dry, no rash. NEURO: No focal deficits. Alert and oriented x3. PSYCH: Normal mood and affect. Course Vital Signs Vital signs: Vital Signs Temperature 36.3 C L 09/16/24 09:57 Pulse Rate 95 09/16/24 09:57 Respiratory Rate 23 H 09/16/24 09:57 Blood Pressure 132/81 09/16/24 09:57 Pulse Oximetry 94 09/16/24 09:57 Oxygen Delivery Nasal Cannula 09/16/24 09:57 Oxygen Flow Rate 2 09/16/24 09:57 Temperature 36.3 C L 09/16/24 09:57 Pulse Rate 81 09/16/24 12:00 Respiratory Rate 19 09/16/24 12:00 Blood Pressure 133/75 09/16/24 12:00 Pulse Oximetry 95 09/16/24 12:00 Oxygen Delivery Nasal Cannula 09/16/24 10:55 Oxygen Flow Rate 2 09/16/24 10:55 Medical Decision Making MDM Narrative Medical decision making narrative: Differential is pneumonia, COPD exacerbation, ACS, Chest x-ray showed evidence of developing infiltrate Patient received DuoNebs and received steroid The case was discussed with the hospitalist the patient was admitted to the hospital Vital Signs Vital Signs: Vital Signs Temperature 36.3 C L 09/16/24 09:57 Pulse Rate 95 09/16/24 09:57 Respiratory Rate 23 H 09/16/24 09:57 Blood Pressure 132/81 09/16/24 09:57 Pulse Oximetry 94 09/16/24 09:57 Oxygen Delivery Nasal Cannula 09/16/24 09:57 Oxygen Flow Rate 2 09/16/24 09:57 Temperature 36.3 C L 09/16/24 09:57 Pulse Rate 81 09/16/24 12:00 Respiratory Rate 19 09/16/24 12:00 Blood Pressure 133/75 09/16/24 12:00 Pulse Oximetry 95 09/16/24 12:00 Oxygen Delivery Nasal Cannula 09/16/24 10:55 Oxygen Flow Rate 2 09/16/24 10:55 Lab Data 09/16/24 09:46 09/16/24 09:46 Labs: Lab Results 09/16/24 Range/Units 09:46 WBC 9.8 (4.5-10.0) K/mm3 RBC 6.34 H (4.6-6.20) M/mm3 Hgb 18.1 H (14.0-18.0) g/dL Hct 55.9 H (42.0-52.0) % MCV 88.2 (80-100) fl MCH 28.5 (26-34) pg MCHC 32.4 (32-36) g/dl RDW 14.6 H (11.5-14.5) % Plt Count 194 (150-375) k/mm3 MPV 9.5 (7.4-10.4) fl Immature Gran % (Auto) 0.2 (0-0.5) % Neut % (Auto) 61.4 (45.5-73.1) % Lymph % (Auto) 15.9 L (18.3-44.2) % Gem % (Auto) 5.7 (2.6-8.5) % Eos % (Auto) 15.8 H (0-4.4) % Baso % (Auto) 1.0 (0.2-1.2) % Lymph # (Auto) 1.56 (0.9-3.2) K/mm3 Gem # (Auto) 0.6 (0.1-0.6) K/mm3 Eos # (Auto) 1.6 H (0-0.3) K/mm3 Baso # (Auto) 0.1 (0.0-0.1) K/mm3 Abs Immat Gran (auto) 0.02 (0.00-0.031) K/mm3 Absolute Neuts (auto) 6.0 (1.3-6.7) K/mm3 Absolute Nucleated RBC 0.000 (0.0-0.012) K/mm3 Nucleated RBC % 0.0 (0.0-0.2) % PT 13.9 (11.1-14.7) Seconds INR 1.0 APTT 27.4 (22.3-36.8) Seconds Sodium 140 (137-145) mmol/L Potassium 4.3 (3.4-5.0) mmol/L Chloride 99 (98-107) mmol/L Carbon Dioxide 30 (22-30) mmol/L Anion Gap 11 (4-12) mmol/L BUN 10 (9-20) mg/dL Creatinine 1.08 (0.7-1.3) mg/dL Estim Creat Clear Calc Not Reportable Estimated GFR > 60 (59 - ) Glucose 115 H (65-110) mg/dL Calcium 9.5 (8.4-10.2) mg/dL Total Bilirubin 1.1 (0.2-1.3) mg/dL AST 34 (17-59) U/L ALT 39 (6-50) U/L Alkaline Phosphatase 97 (38-126) U/L Troponin I < 0.012 (0.000-0.034) ng/mL NT-Pro-B Natriuret Pep 41 (19.9-100) pg/mL Total Protein 8.0 (6.3-8.2) g/dL Albumin 5.0 (3.5-5.1) g/dL Lipase 109 (23-300) U/L Discharge Plan Discharge Clinical Impression: Pneumonia, Acute exacerbation of chronic obstructive pulmonary disease Patient Disposition: Still a Patient Condition: Stable Patient Language: [place] Prescriptions: No Action albuterol sulfate 2.5 mg /3 mL (0.083 %) solution for nebulization 2.5 mg continuous nebulization PRN PRN (Reason: difficulty breathing) hydrocodone-acetaminophen 5-325 mg tablet 1 tablet PO Q12H Patient Comments: 2 x day, morning and evening famotidine 20 mg tablet 20 mg PO BID tamsulosin 0.4 mg capsule 0.4 mg PO DAILY amlodipine 10 mg tablet 10 mg PO DAILY diclofenac sodium 50 mg tablet,delayed release (DR/EC) 50 mg PO BID Qty: 40 0RF albuterol sulfate [Ventolin HFA] 90 mcg/actuation HFA aerosol inhaler 1 puff INHALATION BID gabapentin 300 mg capsule 300 mg PO TID atorvastatin [Lipitor] 40 mg tablet 40 mg PO HS Follow-up/Referrals: Jonas,DAVEY Hill [Primary Care Provider] - Time of Disposition: 12:37
[2024-09-16 13:01] LABS: Troponin I < 0.012 ng/mL (0.000-0.034)
--- NOTE | 2024-09-16 13:30 | PM.IMHP ---
H&P: HPI History of Present Illness Date/Time: 09/16/24 13:00 Chief Complaint: Shortness of breath. Narrative: This is a pleasant 64-year-old male smoker with chronic obstructive pulmonary disease, chronic respiratory failure with hypoxia 2 L at night, findings of interstitial lung disease on prior imaging, hypertension, hyperlipidemia, and benign prostatic hyperplasia who presented to the emergency department shortness of breath. He gives a 4 to 5 day history of increasing shortness of breath on lesser and lesser exertion, cough productive of yellow/green phlegm, and wheezing. He has tightness in his chest with shortness of breath. He has been wearing his oxygen continuously and is administering nebulizer treatments with some relief. He also reports a subjective fever and a decrease in appetite. He denies headache, sinus congestion, sore throat, exertional chest pain, pleuritic pain, syncope, near syncope, vomiting, diarrhea, lower extremity edema, and calf pain. No known sick contacts. In the ED: SpO2 was 94% with stable vital signs on arrival. CMP and CBC were unremarkable aside from a WBC count of 6.34, hemoglobin 18.1, hematocrit 55.9%. He was negative for flu, COVID, and RSV. Chest x-ray showed chronic interstitial change with peribronchial thickening and patchy consolidation of the right upper lobe. He was administered a DuoNeb, azithromycin, ceftriaxone, methylprednisolone and he is being admitted in this setting for further treatment of COPD exacerbation and possible pneumonia. Review of Systems Review of Systems: 12 systems were reviewed and are negative except for as per HPI. [facility] Past Medical History Medical History Restless leg syndrome Tobacco dependence Interstitial lung disease Chronic obstructive pulmonary disease Hyperlipidemia Benign prostate hyperplasia Hypertension Surgical History Surgical History History of open reduction and internal fixation (ORIF) procedure repair left lower extremity fracture History of cholecystectomy Family History Family History Mother Lung cancer Type II diabetes mellitus Father Lung cancer Sibling Cerebrovascular accident Social History Social History Social History: Surrogate medical decision maker: Sharmilaferdinand Roberson, daughter. Code status: Full code. Smoking packs per day: 1 Smoking cigarettes per day: 20.0 Years smoked: 50 Smoking pack-years: 50.00 Smoking status: Current every day smoker Alcohol intake: never Substance use: current Substance use type: marijuana Last use: 2-3 weeks ago Do You Feel Safe in your Home?: Yes Lack of Transportation: No Lack of Food: Never True Current Housing: I Have Housing Concerned About Future Housing: No Difficulty Paying Gas/Electric Bills: No Difficulty Paying for Meds: No Currently Unemployed: No Education: Grade School Difficulty w/ Childcare or Family Care: No Living arrangements: alone Additional living arrangements comments: . Lives in [place]. No pets. Spiritual care concerns: No Meds Home Medications and Allergies Home Medications ?Medication ?Instructions ?Recorded ?Confirmed ?Type albuterol sulfate 2.5 mg/3 mL 2.5 mg continuous nebulization PRN 01/16/22 09/16/24 History (0.083 %) solution for nebulization PRN difficulty breathing amlodipine 10 mg tablet 10 mg PO DAILY 01/16/22 09/16/24 History diclofenac sodium 50 mg 50 mg PO BID #40 tabs 01/16/22 09/16/24 Rx tablet,delayed release famotidine 20 mg tablet 20 mg PO BID 01/16/22 09/16/24 History hydrocodone 5 mg-acetaminophen 325 1 tablet PO Q12H 01/16/22 09/16/24 History mg tablet tamsulosin 0.4 mg capsule 0.4 mg PO DAILY 01/16/22 09/16/24 History albuterol sulfate 90 mcg/actuation 1 puff inhalation BID 06/27/24 09/16/24 History aerosol inhaler (Ventolin HFA) atorvastatin 40 mg tablet (Lipitor) 40 mg PO HS 06/27/24 09/16/24 History gabapentin 300 mg capsule 300 mg PO TID 06/27/24 09/16/24 History Allergies Allergy/AdvReac Type Severity Reaction Status Date / Time No Known Allergies Allergy Verified 09/16/24 15:25 Vital Signs Vital Signs - 24 hr 09/16/24 09:57 09/16/24 09:57 09/16/24 09:57 Temperature 97.4 F L Pulse Rate 95 95 Respiratory Rate 23 H Blood Pressure 132/81 Pulse Oximetry 94 94 Oxygen Delivery Nasal Cannula Nasal Cannula Oxygen Flow Rate 2 2 04/15/25 10:16 09/16/24 10:31 09/16/24 10:40 Temperature Pulse Rate 101 H 102 H Respiratory Rate 22 H 24 H Blood Pressure Pulse Oximetry 94 Oxygen Delivery Nasal Cannula Oxygen Flow Rate 2 09/16/24 10:55 09/16/24 10:55 09/16/24 12:00 Temperature Pulse Rate 97 81 Respiratory Rate 18 19 Blood Pressure 140/90 133/75 Pulse Oximetry 95 95 95 Oxygen Delivery Nasal Cannula Oxygen Flow Rate 2 Exam Narrative: General: Mildly ill-appearing male sitting up in bed in no acute distress. Weight: 90.1 kg. BMI: 29.3. HEENT: PERRL, EOMI. Sclera anicteric. Tacky mucous membranes. Neck: Supple. Respiratory: Respirations are nonlabored he is speaking in full sentences. Lung sounds are diminished throughout with diffuse end-expiratory wheezing and occasional coarse rhonchi which improved with cough. Cardiovascular: Regular rate and rhythm with S1-S2. Gastrointestinal: Abdomen is soft, nontender, and nondistended with positive bowel sounds. Skin: Warm and dry. Extremities: No cyanosis, clubbing, or edema. Radial and pedal pulses intact. Neurological: Alert. Cranial nerves 2-12 are grossly intact. No gross focal deficits to casual conversation. Psychiatric: Pleasant and cooperative with normal mood and affect. Judgment and insight intact. H&P: Results Labs Labs: Short CBC 09/16/24 Range/Units 09:46 WBC 9.8 (4.5-10.0) K/mm3 Hgb 18.1 H (14.0-18.0) g/dL Hct 55.9 H (42.0-52.0) % Plt Count 194 (150-375) k/mm3 [facility] 09/16/24 09:46 Sodium 140 Potassium 4.3 Chloride 99 Carbon Dioxide 30 BUN 10 Creatinine 1.08 Glucose 115 H Calcium 9.5 Cardiac Enzymes 09/16/24 09/16/24 Range/Units 09:46 12:31 Troponin I < 0.012 < 0.012 (0.000-0.034) ng/mL Liver Function 09/16/24 Range/Units 09:46 Total Bilirubin 1.1 (0.2-1.3) mg/dL AST 34 (17-59) U/L ALT 39 (6-50) U/L Alkaline Phosphatase 97 (38-126) U/L Albumin 5.0 (3.5-5.1) g/dL Imaging Chest X-Ray 09/16/24 10:01 IMPRESSION: Chronic interstitial change with peribronchial thickening and patchy consolidation of the right upper lobe, as detailed above. Assessment and Plan Assessment and plan (1) Acute exacerbation of chronic obstructive pulmonary disease: Code(s): J44.1 - Chronic obstructive pulmonary disease with (acute) exacerbation Status: Acute (2) Polycythemia: Code(s): D75.1 - Secondary polycythemia Status: Acute (3) Tobacco dependence: Code(s): F17.200 - Nicotine dependence, unspecified, uncomplicated Status: Acute (4) Hypertension: Code(s): I10 - Essential (primary) hypertension Status: Acute (5) Hyperlipidemia: Code(s): E78.5 - Hyperlipidemia, unspecified Status: Acute (6) Benign prostate hyperplasia: Code(s): N40.0 - Benign prostatic hyperplasia without lower urinary tract symptoms Status: Acute (7) Restless leg syndrome: Code(s): G25.81 - Restless legs syndrome Status: Acute Plan The patient presented to the emergency department with complaints of shortness of breath, productive cough, and wheezing for approximately 45 days as detailed in HPI. Clinically he has a COPD exacerbation and has been started on scheduled bronchodilators and steroids. Chest x-ray shows findings consistent with interstitial lung disease and right upper lobe consolidation which appears improved compared to prior radiographs. However given his increase in purulence, sputum production he has been started on antibiotics. Sputum culture ordered. Cornet and Mucinex ordered to help mobilize secretions. Polycythemia may very well be due to chronic hypoxia and an ABG is pending. Smoking cessation is imperative and was discussed. Blood pressures are reasonable in review monitored. Other chronic conditions including benign prostatic hyperplasia and restless leg syndrome seems stable. His home medications will be reviewed and resumed as appropriate. Findings and treatment plan were discussed with the patient. Questions were solicited and answered to satisfaction. The patient's medical management will be taken over by the hospitalist team in a.m. Quality VTE Prophylaxis VTE prophylaxis: pharmacologic ordered The patient has been admitted under observation status. Hospitalist MIPS Advance Care Plan I have confirmed that the patient's Advanced Care Plan is present, code status is documented, or surrogate decision maker is listed in patient medical record.: Yes Medication Reconciliation I have utilized all available resources to obtain, update and review the patients current medications (includes all prescriptions, OTC, herbals, cannabis, and nutritional supplements).: Yes
[2024-09-16 13:34] LABS: Influenza A QL RT-PCR Negative (Negative); Influenza B QL RT-PCR Negative (Negative); RSV RNA, RT-PCR Negative (Negative); SARS-CoV-2 RNA PCR Negative (Negative)
[2024-09-16] MEDS: AZITHROMYCIN 500 MG/NS 250 ML 500 MG/250 ML BAG 250 MG IVPB (13:55)
--- NOTE | 2024-09-16 15:24 | ADMGEN ---
This patient, Frank Hartman, was admitted to Medical Room 345-. Patient/family oriented to hospital policies and general routines including ID bracelet, bed and alarms, visiting hours, pain management, procedures, bathroom and other care routines, personal items, smoking policy, room service/diet, and visiting hours. Information on how to activate the Rapid Response Team has been discussed. Patient/Family are encouraged to report perceived risks to care and to ask questions if they do not understand what they are told or what they should do.
[2024-09-16 15:53] LABS: Troponin I < 0.012 ng/mL (0.000-0.034)
[2024-09-16 16:07] LABS: Alveolar/Arterial O2 Gradient 59.7 mmHg; Base Excess ABG 2.3 mEq/l (+/-2.0); Carboxyhemoglobin 0.4 % THb (0-2.0); Fractional Inspired Oxygen 24 %; HCO3 ABG 26.4 mEq/l (22.0-26.0); Methemoglobin ABG 0.3 %THb (0-1.5); Oxygen Content ABG 23.5 %vol (16.0-22.0); Oxygen Saturation ABG 93.5 % (95.0-100.0); PCO2 ABG 39.2 mmHg (35.0-45.0); PO2 ABG 64.8 mmHg (80.0-100.0); Reduced Hemoglobin 7.3 %THb (0-5.0); Total Hemoglobin 18.2 g/dL (12.0-18.0); pH ABG 7.446 (7.350-7.450)
[2024-09-16 16:11] LABS: Device NASAL CANNULA; Modified Allen's Test Pass; Site Drawn RIGHT RADIAL
[2024-09-16] MEDS: methylPREDNISolone SOD SUCC 125 MG VIAL 60 MG IV PUSH ×2 (16:59→21:17)
--- NOTE | 2024-09-16 18:43 | PCRCNOTE ---
Spoke with patient and he states, he does not wear CPAP at home.
[2024-09-16 19:06] LABS: MRSA (PCR) NOT DETECTED (NOT DETECTE)
[2024-09-16] MEDS: ATORVASTATIN 40 MG TABLET PO (21:17)
[2024-09-16] MEDS: FAMOTIDINE 20 MG TABLET PO (21:17)
[2024-09-16] MEDS: guaiFENesin 12 HR 600 MG TABCR 1200 MG PO (21:17)
[2024-09-16] MEDS: GABAPENTIN 300 MG CAPSULE PO (21:17)
[2024-09-16] MEDS: HYDROcodone/acetaminophen (*CRX) 5-325 MG TABLET 1 TAB PO (21:17)
[2024-09-17] VITALS (20 sets, daily range): BP systolic 115–146; BP diastolic 60–70; PULSE 89–110; RESP 16–22; TEMP 36.3–36.4; O2SAT 90–94
[2024-09-17] MEDS: IPRATROPIUM 0.5 MG/ALBUTEROL SULFATE 2.5 MG AMPUL.NEB 3 ML INHALATION ×7 (00:45→23:43)
[2024-09-17] MEDS: methylPREDNISolone SOD SUCC 125 MG VIAL 60 MG IV PUSH ×2 (05:09→17:35)
[2024-09-17 05:28] LABS: Hematocrit 49.3 % (42.0-52.0); Hemoglobin 15.8 g/dL (14.0-18.0); Mean Corpuscular Hemoglobin 28.2 pg (26-34); Mean Platelet Volume 9.9 fl (7.4-10.4); Platelet Count Result 181 k/mm3 (150-375); Red Cell Distribution Width 14.7 % (11.5-14.5); White Blood Count 10.4 K/mm3 (4.5-10.0)
[2024-09-17 05:37] LABS: Anion Gap 8 mmol/L (4-12); Blood Urea Nitrogen 19 mg/dL (9-20); Calcium 9.3 mg/dL (8.4-10.2); Carbon Dioxide 27 mmol/L (22-30); Chloride 100 mmol/L (98-107); Estimated CRCL calculation 61 ml/min; Estimated Glomerular Filt Rate > 60; Glucose 173 mg/dL (65-110); Magnesium 2.4 mg/dL (1.6-2.3); Potassium 4.2 mmol/L (3.4-5.0); Sodium 135 mmol/L (137-145)
--- NOTE | 2024-09-17 07:02 | P.PNIM_ITS ---
Progress Note: A&P Assessment and Plan (1) Acute exacerbation of chronic obstructive pulmonary disease: Code(s): J44.1 - Chronic obstructive pulmonary disease with (acute) exacerbation Status: Acute Assessment and Plan: Chest x-ray shows findings consistent with interstitial lung disease and right upper lobe consolidation which appears improved compared to prior radiographs. Leukocytosis likely secondary to steroid use - Antibiotics started due to increase in purulence and sputum production Azithromycin and Rocephin started on 09/17 - Duonebz q4H - Solu-Medrol 60 mg IVq12H - Cornet and Mucinex ordered to help mobilize secretions. - Sputum cultures pending - Blood cultures NGTD - Monitor vital signs, I&Os, neuro status and patient is a fall risk - Monitor serum electrolytes, cultures and CBC - Monitor Oxygen saturation, Oxygen via NC; wean oxygen as tolerated, keep SpO2 greater than 88% (2) Chronic respiratory failure with hypoxia: Code(s): J96.11 - Chronic respiratory failure with hypoxia Status: Acute Assessment and Plan: Chronically on 2L NC secondary to COPD Remains on baseline 2L NC Maintain SpO2 > 88% (3) Polycythemia: Code(s): D75.1 - Secondary polycythemia Status: Acute Assessment and Plan: Polycythemia may very well be due to chronic hypoxia ABG: pH 7.446, pCO2 39.2, pO2 64.8, HCO3 26.4, unremarkable (4) Hypertension: Code(s): I10 - Essential (primary) hypertension Status: Acute Assessment and Plan: Chronic - amlodipine 10 mg daily - blood pressures remain stable, continue to monitor (5) Hyperlipidemia: Code(s): E78.5 - Hyperlipidemia, unspecified Status: Acute Assessment and Plan: Chronic, continue atorvastatin 40 mg daily (6) Benign prostate hyperplasia: Code(s): N40.0 - Benign prostatic hyperplasia without lower urinary tract symptoms Status: Acute Assessment and Plan: Chronic, continue flomax 0.4 mg daily (7) Tobacco dependence: Code(s): F17.200 - Nicotine dependence, unspecified, uncomplicated Status: Acute Assessment and Plan: Smoking cessation is imperative and encouraged. Time Spent With Patient Time with patient: 25 - 35 minutes Subjective Date/time seen: 09/17/24 07:02 Interval history: 64-year-old male smoker with chronic obstructive pulmonary disease, chronic respiratory failure with hypoxia 2 L at night, findings of interstitial lung disease on prior imaging, hypertension, hyperlipidemia, and benign prostatic hyperplasia who presented to the hospital for shortness of breath with exertion, cough productive of yellow/green phlegm, and wheezing. Patient is pleasant sitting on the side of bed. He continues to endorse shortness of breath and a productive cough. He has no other complaints denying chest pain, palpitations, nausea/vomiting and abdominal pain. Patient states that his PCP Sergio Mcdaniel has recently changed him to daily oxygen of 2L, previously on night only. Review of Systems Review of Systems: All systems reviewed & are unremarkable except as noted in HPI and below Exam Narrative: AF HR 104 RR 18 SPO2 94 2L NC (baseline) BP 115/60 General: male in no acute respiratory distress who is nontoxic appearing, sitting on the side of bed with 2L NC in place HEENT: Normocephalic. Atraumatic. Extraocular movement intact. Sclera clear and anicteric. No facial asymmetry. Chest: Lungs are diminished with expiratory wheezing to auscultation bilaterally. Occ CV: Heart was regular rate and rhythm. S1/S2. No murmurs, gallops, or rubs. Abd: Abdomen was soft. Nontender. Nondistended. Postive bowel sounds. Ext: No clubbing, cyanosis, or edema. DP pulses bilaterally. Neuro: Patient is alert and oriented x4. Speech is clear. Objective Data Vital Signs Vital Signs: Vital Signs - 24 hr 09/16/24 09:57 09/16/24 09:57 09/16/24 09:57 Temperature 97.4 F L Pulse Rate 95 95 Respiratory Rate 23 H Blood Pressure 132/81 Pulse Oximetry 94 94 Oxygen Delivery Nasal Cannula Nasal Cannula Oxygen Flow Rate 2 09/16/24 10:16 09/16/24 10:31 09/16/24 10:40 Temperature Pulse Rate 101 H 102 H Respiratory Rate 22 H 24 H Blood Pressure Pulse Oximetry 94 Oxygen Delivery Nasal Cannula Oxygen Flow Rate 2 09/16/24 10:55 09/16/24 10:55 09/16/24 12:00 Temperature Pulse Rate 97 81 Respiratory Rate 18 19 Blood Pressure 140/90 133/75 Pulse Oximetry 95 95 95 Oxygen Delivery Nasal Cannula Oxygen Flow Rate 2 09/16/24 13:57 09/16/24 14:05 09/16/24 14:33 Temperature 98 F Pulse Rate 93 98 101 H Respiratory Rate 21 H 20 20 Blood Pressure 136/84 145/88 H Pulse Oximetry 93 93 95 Oxygen Delivery Nasal Cannula Oxygen Flow Rate 2 09/16/24 14:33 09/16/24 14:43 09/16/24 15:56 Temperature 97.1 F L Pulse Rate 101 H 107 H 102 H Respiratory Rate 20 24 H 18 Blood Pressure 135/77 Pulse Oximetry 96 Oxygen Delivery Oxygen Flow Rate 09/16/24 17:34 09/16/24 19:58 09/16/24 20:00 Temperature Pulse Rate 108 H Respiratory Rate 18 16 Blood Pressure Pulse Oximetry 96 95 Oxygen Delivery Nasal Cannula Nasal Cannula Oxygen Flow Rate 2 2 09/16/24 20:05 09/16/24 21:37 09/17/24 00:45 Temperature 97.2 F L Pulse Rate 112 H 108 H 94 Respiratory Rate 16 16 16 Blood Pressure 137/74 Pulse Oximetry 93 Oxygen Delivery Oxygen Flow Rate 09/17/24 00:53 09/17/24 04:20 09/17/24 04:29 Temperature Pulse Rate 99 94 110 H Respiratory Rate 18 16 18 Blood Pressure Pulse Oximetry Oxygen Delivery Oxygen Flow Rate Intake/Output Intake/Output: Intake & Output 09/14/24 09/15/24 09/16/24 09/17/24 23:59 23:59 23:59 23:59 Intake Total 530 Output Total 400 Balance 130 Meds/Results Medications: Active Medications Generic Name Dose Route Start Last Admin Trade Name Freq PRN Reason Stop Dose Admin Acetaminophen 650 mg 09/16/24 12:37 Acetaminophen 325 Mg Tablet PO Q4H PRN Mild Pain (1-3) or Fever Hydrocodone Bitart/Acetaminophen 1 tab 09/16/24 21:00 09/16/24 21:17 Hydrocodone/Acetaminophen (*Crx) 5-325 Mg Tablet PO 1 tab Q12HR SHANNAN Administration Albuterol/Ipratropium 3 ml 09/16/24 16:00 09/17/24 04:19 Ipratropium 0.5 Mg/Albuterol Sulfate 2.5 Mg Ampul.Neb 3 Ml INHALATION 3 ml Q4HRT SHANNAN Administration Amlodipine Besylate 10 mg 09/17/24 09:00 Amlodipine Besylate 10 Mg Tablet PO DAILY SHANNAN Atorvastatin Calcium 40 mg 09/16/24 21:00 09/16/24 21:17 Atorvastatin 40 Mg Tablet PO 40 mg HS SHANNAN Administration Diclofenac Sodium 50 mg 09/17/24 09:00 Diclofenac Sod 25 Mg Tablet.Ec PO BID SHANNAN Enoxaparin Sodium 40 mg 09/17/24 09:00 Enoxaparin 40 Mg/0.4 Ml Syringe SUB-Q DAILY [facility] Famotidine 20 mg 09/16/24 20:55 09/16/24 21:17 Famotidine 20 Mg Tablet PO 20 mg BID SHANNAN Administration Gabapentin 300 mg 09/16/24 20:55 09/16/24 21:17 Gabapentin 300 Mg Capsule PO 300 mg TID SHANNAN Administration Guaifenesin 1,200 mg 09/16/24 21:00 09/16/24 21:17 Guaifenesin 12 Hr 600 Mg Tabcr PO 1,200 mg Q12HR SHANNAN Administration Ceftriaxone Sodium 1 gm in 50 mls @ 100 mls/hr 09/17/24 13:00 Rocephin 1 Gm/Ns 50 Ml IVPB Q24H SHANNAN Azithromycin 500 mg in 250 mls @ 250 mls/hr 09/17/24 13:00 Zithromax IVPB Q24H [facility] Methylprednisolone Sodium Succinate 60 mg 09/16/24 16:00 09/17/24 05:09 Methylprednisolone Sod Succ 125 Mg Vial IV PUSH 60 mg Q8HR SHANNAN Administration Tamsulosin HCl 0.4 mg 09/17/24 09:00 Tamsulosin Hcl 0.4 Mg Capsule PO DAILY [facility] Radiology Results: ITS Impressions Chest X-Ray 09/16/24 10:01 IMPRESSION: Chronic interstitial change with peribronchial thickening and patchy consolidation of the right upper lobe, as detailed above. Labs Labs: Laboratory Results - last 24 hr 09/16/24 09/16/24 09/16/24 09:46 12:31 12:50 WBC 9.8 RBC 6.34 H Hgb 18.1 H Hct 55.9 H MCV 88.2 MCH 28.5 MCHC 32.4 RDW 14.6 H Plt Count 194 MPV 9.5 Immature Gran % (Auto) 0.2 Neut % (Auto) 61.4 Lymph % (Auto) 15.9 L [place] % (Auto) 5.7 Eos % (Auto) 15.8 H Baso % (Auto) 1.0 Lymph # (Auto) 1.56 [place] # (Auto) 0.6 Eos # (Auto) 1.6 H Baso # (Auto) 0.1 Abs Immat Gran (auto) 0.02 Absolute Neuts (auto) 6.0 Absolute Nucleated RBC 0.000 Nucleated RBC % 0.0 PT 13.9 INR 1.0 APTT 27.4 Puncture Site ABG pH ABG pCO2 ABG pO2 ABG PO2/FiO2 Ratio ABG HCO3 ABG O2 Saturation ABG O2 Content ABG Base Excess A-a Gradient Oxyhemoglobin Carboxyhemoglobin Methemoglobin Reduced Hemoglobin Total Hemoglobin O2 Delivery Device O2 Liters/Min FiO2 Sodium 140 Potassium 4.3 Chloride 99 Carbon Dioxide 30 Anion Gap 11 BUN 10 Creatinine 1.08 Estim Creat Clear Calc Not Reportable Estimated GFR > 60 Glucose 115 H Calcium 9.5 Magnesium Total Bilirubin 1.1 AST 34 ALT 39 Alkaline Phosphatase 97 Troponin I < 0.012 < 0.012 NT-Pro-B Natriuret Pep 41 Total Protein 8.0 Albumin 5.0 Lipase 109 Nasal MRSA (PCR) Influenza A (RT-PCR) Negative Influenza B (RT-PCR) Negative RSV (RT-PCR) Negative SARS-CoV-2 RNA (RT-PCR) Negative 09/16/24 09/16/24 09/16/24 15:22 15:56 17:47 WBC RBC Hgb Hct MCV MCH MCHC RDW Plt Count MPV Immature Gran % (Auto) Neut % (Auto) Lymph % (Auto) [place] % (Auto) Eos % (Auto) Baso % (Auto) Lymph # (Auto) [place] # (Auto) Eos # (Auto) Baso # (Auto) Abs Immat Gran (auto) Absolute Neuts (auto) Absolute Nucleated RBC Nucleated RBC % PT INR APTT Puncture Site Right radial ABG pH 7.446 ABG pCO2 39.2 ABG pO2 64.8 L ABG PO2/FiO2 Ratio 2.70 ABG HCO3 26.4 H ABG O2 Saturation 93.5 L ABG O2 Content 23.5 H ABG Base Excess 2.3 A-a Gradient 59.7 Oxyhemoglobin 92.0 Carboxyhemoglobin 0.4 Methemoglobin 0.3 Reduced Hemoglobin 7.3 H Total Hemoglobin 18.2 H O2 Delivery Device Nasal cannula O2 Liters/Min 2.0 FiO2 24 Sodium Potassium Chloride Carbon Dioxide Anion Gap BUN Creatinine Estim Creat Clear Calc Estimated GFR Glucose Calcium Magnesium Total Bilirubin AST ALT Alkaline Phosphatase Troponin I < 0.012 NT-Pro-B Natriuret Pep Total Protein Albumin Lipase Nasal MRSA (PCR) Not detected Influenza A (RT-PCR) Influenza B (RT-PCR) RSV (RT-PCR) SARS-CoV-2 RNA (RT-PCR) 09/17/24 05:14 WBC 10.4 H RBC 5.60 Hgb 15.8 Hct 49.3 MCV 88.0 MCH 28.2 MCHC 32.0 RDW 14.7 H Plt Count 181 MPV 9.9 Immature Gran % (Auto) Neut % (Auto) Lymph % (Auto) [place] % (Auto) Eos % (Auto) Baso % (Auto) Lymph # (Auto) [place] # (Auto) Eos # (Auto) Baso # (Auto) Abs Immat Gran (auto) Absolute Neuts (auto) Absolute Nucleated RBC Nucleated RBC % PT INR APTT Puncture Site ABG pH ABG pCO2 ABG pO2 ABG PO2/FiO2 Ratio ABG HCO3 ABG O2 Saturation ABG O2 Content ABG Base Excess A-a Gradient Oxyhemoglobin Carboxyhemoglobin Methemoglobin Reduced Hemoglobin Total Hemoglobin O2 Delivery Device O2 Liters/Min FiO2 Sodium 135 L Potassium 4.2 Chloride 100 Carbon Dioxide 27 Anion Gap 8 BUN 19 Creatinine 1.17 Estim Creat Clear Calc 61 Estimated GFR > 60 Glucose 173 H Calcium 9.3 Magnesium 2.4 H Total Bilirubin AST ALT Alkaline Phosphatase Troponin I NT-Pro-B Natriuret Pep Total Protein Albumin Lipase Nasal MRSA (PCR) Influenza A (RT-PCR) Influenza B (RT-PCR) RSV (RT-PCR) SARS-CoV-2 RNA (RT-PCR) Quality VTE Prophylaxis VTE prophylaxis: pharmacologic ordered
[2024-09-17] MEDS: guaiFENesin 12 HR 600 MG TABCR 1200 MG PO ×2 (09:21→20:12)
[2024-09-17] MEDS: FAMOTIDINE 20 MG TABLET PO ×2 (09:21→17:34)
[2024-09-17] MEDS: GABAPENTIN 300 MG CAPSULE PO ×3 (09:21→17:34)
[2024-09-17] MEDS: TAMSULOSIN HCL 0.4 MG CAPSULE PO (09:21)
[2024-09-17] MEDS: DICLOFENAC SOD 25 MG TABLET.EC 50 MG PO ×2 (09:21→17:34)
[2024-09-17] MEDS: HYDROcodone/acetaminophen (*CRX) 5-325 MG TABLET 1 TAB PO ×2 (09:22→20:12)
[2024-09-17] MEDS: amLODIPine BESYLATE 10 MG TABLET PO (09:22)
[2024-09-17] MEDS: ENOXAPARIN 40 MG/0.4 ML SYRINGE SUB-Q (09:23)
[2024-09-17] MEDS: AZITHROMYCIN 500 MG/NS 250 ML 500 MG/250 ML BAG 250 MG IVPB (12:30)
[2024-09-17] MEDS: ATORVASTATIN 40 MG TABLET PO (20:12)
[2024-09-18] VITALS (14 sets, daily range): BP systolic 113–123; BP diastolic 49–73; PULSE 77–110; RESP 18–20; TEMP 35.9–36.5; O2SAT 90–93
--- NOTE | 2024-09-18 04:30 | PCRCNOTE ---
Patient refused 0400 breathing treatment, stating he wants to continue sleeping. Patients lungs clear/diminished. See next scheduled breathing treatment at 0800.
[2024-09-18 05:37] LABS: Hematocrit 45.4 % (42.0-52.0); Hemoglobin 14.8 g/dL (14.0-18.0); Mean Corpuscular HGB Conc 32.6 g/dl (32-36); Mean Corpuscular Hemoglobin 28.5 pg (26-34); Mean Corpuscular Volume 87.3 fl (80-100); Mean Platelet Volume 9.6 fl (7.4-10.4); Platelet Count Result 201 k/mm3 (150-375); Red Cell Distribution Width 14.7 % (11.5-14.5); White Blood Count 17.4 K/mm3 (4.5-10.0)
[2024-09-18 05:45] LABS: Alanine Aminotransferase 25 U/L (6-50); Albumin Level 3.7 g/dL (3.5-5.1); Alkaline Phosphatase 60 U/L (38-126); Anion Gap 9 mmol/L (4-12); Aspartate Amino Transferase 23 U/L (17-59); Bilirubin,Total 0.4 mg/dL (0.2-1.3); Blood Urea Nitrogen 24 mg/dL (9-20); Calcium 9.1 mg/dL (8.4-10.2); Carbon Dioxide 24 mmol/L (22-30); Chloride 101 mmol/L (98-107); Estimated CRCL calculation 63 ml/min; Estimated Glomerular Filt Rate > 60; Glucose 138 mg/dL (65-110); Potassium 4.6 mmol/L (3.4-5.0); Sodium 134 mmol/L (137-145)
[2024-09-18] MEDS: methylPREDNISolone SOD SUCC 125 MG VIAL 60 MG IV PUSH ×2 (05:51→17:50)
[2024-09-18] MEDS: IPRATROPIUM 0.5 MG/ALBUTEROL SULFATE 2.5 MG AMPUL.NEB 3 ML INHALATION ×5 (08:13→23:39)
--- NOTE | 2024-09-18 08:39 | PM.IMPN ---
Progress Note: A&P Assessment and Plan (1) Acute exacerbation of chronic obstructive pulmonary disease: Code(s): J44.1 - Chronic obstructive pulmonary disease with (acute) exacerbation Status: Acute Assessment and Plan: Chest x-ray shows findings consistent with interstitial lung disease and right upper lobe consolidation which appears improved compared to prior radiographs. Leukocytosis likely secondary to steroid use - Antibiotics started due to increase in purulence and sputum production Azithromycin and Rocephin started on 09/17, transition to PO in the am - Duonebz q4H - Solu-Medrol 60 mg IVq12H - Cornet and Mucinex ordered to help mobilize secretions. - Sputum cultures pending - Blood cultures NGTD - Obtain a home o2 eval prior to dc, patient states his PCP recently started him on 2L at all time - Monitor vital signs, I&Os, neuro status and patient is a fall risk - Monitor serum electrolytes, cultures and CBC - Monitor Oxygen saturation, Oxygen via NC; wean oxygen as tolerated, keep SpO2 greater than 88% (2) Chronic respiratory failure with hypoxia: Code(s): J96.11 - Chronic respiratory failure with hypoxia Status: Acute Assessment and Plan: Chronically on 2L NC secondary to COPD Remains on baseline 2L NC Maintain SpO2 > 88% (3) Polycythemia: Code(s): D75.1 - Secondary polycythemia Status: Acute Assessment and Plan: Polycythemia may very well be due to chronic hypoxia ABG: pH 7.446, pCO2 39.2, pO2 64.8, HCO3 26.4, unremarkable (4) Hypertension: Code(s): I10 - Essential (primary) hypertension Status: Acute Assessment and Plan: Chronic - amlodipine 10 mg daily - blood pressures remain stable, continue to monitor (5) Hyperlipidemia: Code(s): E78.5 - Hyperlipidemia, unspecified Status: Acute Assessment and Plan: Chronic, continue atorvastatin 40 mg daily (6) Benign prostate hyperplasia: Code(s): N40.0 - Benign prostatic hyperplasia without lower urinary tract symptoms Status: Acute Assessment and Plan: Chronic, continue flomax 0.4 mg daily (7) Tobacco dependence: Code(s): F17.200 - Nicotine dependence, unspecified, uncomplicated Status: Acute Assessment and Plan: Smoking cessation is imperative and encouraged. Time Spent With Patient Time with patient: 25 - 35 minutes Subjective Date/time seen: 09/18/24 08:39 Interval history: 64-year-old male smoker with chronic obstructive pulmonary disease, chronic respiratory failure with hypoxia 2 L at night, findings of interstitial lung disease on prior imaging, hypertension, hyperlipidemia, and benign prostatic hyperplasia who presented to the hospital for shortness of breath with exertion, cough productive of yellow/green phlegm, and wheezing. Patient is pleasant sitting on the side of the bed. He states that his shortness of breath has improved slightly since yesterday. He continues to endorse a productive cough and congestion. He has no other complaints denying chest pain, palpitations, nausea/vomiting, and abdominal pain. Review of Systems Review of Systems: All systems reviewed & are unremarkable except as noted in HPI and below Exam Narrative: AF HR 109 RR 20 SPo2 91 2L NC (baseline) BP 118/58 General: male in no acute respiratory distress who is nontoxic appearing, sitting on the side of bed with 2L NC in place HEENT: Normocephalic. Atraumatic. Extraocular movement intact. Sclera clear and anicteric. No facial asymmetry. Chest: Lungs are diminished with expiratory wheezing to auscultation bilaterally. Improved from yesterday. CV: Heart was regular rate and rhythm. S1/S2. No murmurs, gallops, or rubs. Abd: Abdomen was soft. Nontender. Nondistended. Positive bowel sounds. Neuro: Speech is clear. Objective Data Vital Signs Vital Signs: Vital Signs - 24 hr 09/17/24 12:01 09/17/24 12:10 09/17/24 14:00 Temperature 97.3 F L Pulse Rate 100 95 104 H Respiratory Rate 20 20 18 Blood Pressure 115/60 Pulse Oximetry 94 Oxygen Delivery Oxygen Flow Rate 09/17/24 17:40 09/17/24 17:45 09/17/24 19:56 Temperature Pulse Rate 102 H 108 H 89 Respiratory Rate 20 20 20 Blood Pressure Pulse Oximetry Oxygen Delivery Oxygen Flow Rate 09/17/24 20:03 09/17/24 20:05 09/17/24 20:06 Temperature Pulse Rate 109 H Respiratory Rate Blood Pressure Pulse Oximetry 92 90 Oxygen Delivery Nasal Cannula Nasal Cannula Oxygen Flow Rate 2 2 09/17/24 20:10 09/17/24 23:46 09/17/24 23:57 Temperature 97.5 F L Pulse Rate 110 H 100 102 H Respiratory Rate 18 20 20 Blood Pressure 128/66 Pulse Oximetry 92 Oxygen Delivery Oxygen Flow Rate 09/18/24 05:36 09/18/24 08:16 09/18/24 08:16 Temperature 96.7 F L Pulse Rate 92 96 Respiratory Rate 18 20 Blood Pressure 113/49 L Pulse Oximetry 90 93 Oxygen Delivery Nasal Cannula Oxygen Flow Rate 2 Intake/Output Intake/Output: Intake & Output 09/15/24 09/16/24 09/17/24 09/18/24 23:59 23:59 23:59 23:59 Intake Total 530 1220 550 Output Total 400 800 Balance 130 420 550 Meds/Results Medications: Active Medications Generic Name Dose Route Start Last Admin Trade Name Freq PRN Reason Stop Dose Admin Acetaminophen 650 mg 09/16/24 12:37 Acetaminophen 325 Mg Tablet PO Q4H PRN Mild Pain (1-3) or Fever Hydrocodone Bitart/Acetaminophen 1 tab 09/16/24 21:00 09/17/24 20:12 Hydrocodone/Acetaminophen (*Crx) 5-325 Mg Tablet PO 1 tab Q12HR SHANNAN Administration Albuterol/Ipratropium 3 ml 09/16/24 16:00 09/18/24 08:13 Ipratropium 0.5 Mg/Albuterol Sulfate 2.5 Mg Ampul.Neb 3 Ml INHALATION 3 ml Q4HRT SHANNAN Administration Amlodipine Besylate 10 mg 09/17/24 09:00 09/17/24 09:22 Amlodipine Besylate 10 Mg Tablet PO 10 mg DAILY SHANNAN Administration Atorvastatin Calcium 40 mg 09/16/24 21:00 09/17/24 20:12 Atorvastatin 40 Mg Tablet PO 40 mg HS SHANNAN Administration Diclofenac Sodium 50 mg 09/17/24 09:00 09/17/24 17:34 Diclofenac Sod 25 Mg Tablet.Ec PO 50 mg BID SHANNAN Administration Enoxaparin Sodium 40 mg 09/17/24 09:00 09/17/24 09:23 Enoxaparin 40 Mg/0.4 Ml Syringe SUB-Q 40 mg DAILY SHANNAN Administration Famotidine 20 mg 09/16/24 20:55 09/17/24 17:34 Famotidine 20 Mg Tablet PO 20 mg BID SHANNAN Administration Gabapentin 300 mg 09/16/24 20:55 09/17/24 17:34 Gabapentin 300 Mg Capsule PO 300 mg TID SHANNAN Administration Guaifenesin 1,200 mg 09/16/24 21:00 09/17/24 20:12 Guaifenesin 12 Hr 600 Mg Tabcr PO 1,200 mg Q12HR SHANNAN Administration Ceftriaxone Sodium 1 gm in 50 mls @ 100 mls/hr 09/17/24 13:00 09/17/24 12:29 Rocephin 1 Gm/Ns 50 Ml IVPB 100 mls/hr Q24H SHANNAN Administration Azithromycin 500 mg in 250 mls @ 250 mls/hr 09/17/24 13:00 09/17/24 12:30 Zithromax IVPB 250 mls/hr Q24H SHANNAN Administration Methylprednisolone Sodium Succinate 60 mg 09/17/24 18:00 09/18/24 05:51 Methylprednisolone Sod Succ 125 Mg Vial IV PUSH 60 mg Q12H SHANNAN Administration Tamsulosin HCl 0.4 mg 09/17/24 09:00 09/17/24 09:21 Tamsulosin Hcl 0.4 Mg Capsule PO 0.4 mg DAILY SHANNAN Administration Radiology Results: ITS Impressions Chest X-Ray 09/16/24 10:01 IMPRESSION: Chronic interstitial change with peribronchial thickening and patchy consolidation of the right upper lobe, as detailed above. Labs Labs: Laboratory Results - last 24 hr 09/18/24 05:23 WBC 17.4 H RBC 5.20 Hgb 14.8 Hct 45.4 MCV 87.3 MCH 28.5 MCHC 32.6 RDW 14.7 H Plt Count 201 MPV 9.6 Sodium 134 L Potassium 4.6 Chloride 101 Carbon Dioxide 24 Anion Gap 9 BUN 24 H Creatinine 1.13 Estim Creat Clear Calc 63 Estimated GFR > 60 Glucose 138 H Calcium 9.1 Total Bilirubin 0.4 AST 23 ALT 25 Alkaline Phosphatase 60 Total Protein 6.0 L Albumin 3.7 Quality VTE Prophylaxis VTE prophylaxis: pharmacologic ordered
[2024-09-18] MEDS: guaiFENesin 12 HR 600 MG TABCR 1200 MG PO ×2 (09:15→21:02)
[2024-09-18] MEDS: TAMSULOSIN HCL 0.4 MG CAPSULE PO (09:15)
[2024-09-18] MEDS: GABAPENTIN 300 MG CAPSULE PO ×3 (09:15→17:51)
[2024-09-18] MEDS: FAMOTIDINE 20 MG TABLET PO ×2 (09:15→17:51)
[2024-09-18] MEDS: amLODIPine BESYLATE 10 MG TABLET PO (09:15)
[2024-09-18] MEDS: DICLOFENAC SOD 25 MG TABLET.EC 50 MG PO ×2 (09:15→17:51)
[2024-09-18] MEDS: ENOXAPARIN 40 MG/0.4 ML SYRINGE SUB-Q (09:15)
[2024-09-18] MEDS: HYDROcodone/acetaminophen (*CRX) 5-325 MG TABLET 1 TAB PO ×2 (09:16→21:03)
[2024-09-18] MEDS: AZITHROMYCIN 500 MG/NS 250 ML 500 MG/250 ML BAG 250 MG IVPB (13:26)
[2024-09-18] MEDS: ATORVASTATIN 40 MG TABLET PO (21:03)
[2024-09-19] VITALS (13 sets, daily range): BP systolic 134; BP diastolic 80; PULSE 75–118; RESP 18–20; TEMP 36.1; O2SAT 87–95
[2024-09-19] MEDS: IPRATROPIUM 0.5 MG/ALBUTEROL SULFATE 2.5 MG AMPUL.NEB 3 ML INHALATION ×3 (04:22→13:19)
[2024-09-19] MEDS: methylPREDNISolone SOD SUCC 125 MG VIAL 60 MG IV PUSH (05:12)
[2024-09-19 05:31] LABS: Hematocrit 44.4 % (42.0-52.0); Hemoglobin 14.2 g/dL (14.0-18.0); Mean Corpuscular Hemoglobin 28.7 pg (26-34); Mean Corpuscular Volume 89.7 fl (80-100); Mean Platelet Volume 9.9 fl (7.4-10.4); Platelet Count Result 173 k/mm3 (150-375); Red Blood Count 4.95 M/mm3 (4.6-6.20); Red Cell Distribution Width 15.1 % (11.5-14.5); White Blood Count 13.2 K/mm3 (4.5-10.0)
[2024-09-19 05:45] LABS: Alanine Aminotransferase 30 U/L (6-50); Albumin Level 3.5 g/dL (3.5-5.1); Alkaline Phosphatase 56 U/L (38-126); Anion Gap 7 mmol/L (4-12); Aspartate Amino Transferase 23 U/L (17-59); Bilirubin,Total 0.4 mg/dL (0.2-1.3); Blood Urea Nitrogen 26 mg/dL (9-20); Carbon Dioxide 24 mmol/L (22-30); Chloride 104 mmol/L (98-107); Estimated CRCL calculation 76 ml/min; Estimated Glomerular Filt Rate > 60; Glucose 145 mg/dL (65-110); Potassium 4.5 mmol/L (3.4-5.0); Sodium 135 mmol/L (137-145)
--- NOTE | 2024-09-19 09:46 | HOMEO2EVAL ---
Evaluation was performed at [facility] Home Oxygen Evaluation RC: Home Oxygen (O2) Evaluation Start: 09/19/24 10:00 Freq: ONCE Status: Active Protocol: RPE Activity Type Activity Date Activity User E-sign Co-sign Detail Recorded Client Recorded Date Recorded By Document 09/19/24 09:10 DJO [email or web address] 09/19/24 09:46 DJO Document 09/19/24 09:15 [email or web address] [email or web address] 09/19/24 09:46 DJO Document 09/19/24 09:20 [email or web address] [email or web address] 09/19/24 09:46 DJO Document 09/19/24 09:25 [email or web address] [email or web address] 09/19/24 09:46 DJO Document 09/19/24 09:30 [email or web address] [email or web address] 09/19/24 09:46 DJO Document 09/19/24 09:45 [email or web address] [email or web address] 09/19/24 09:46 DJO 09/19/24 09/19/24 09/19/24 09:10 09:15 09:20 Home O2 Evaluation [Oxygen] -Test Phase Resting Resting Resting -Oxygen Delivery Room Air Nasal Cannula Nasal Cannula -Oxygen Flow Rate (L/min) 1 2 [Pulse Oximetry] -Pulse Oximetry (90-100 %) 87 L 88 L 90 [Pulse Rate] -Pulse Rate (60-100 beats/min) 110 H 108 H 106 H [Charges] -Evaluation Charges O2 Evaluation by Pulmonary 09/19/24 09/19/24 09/19/24 09:25 09:30 09:45 Home O2 Evaluation [Oxygen] -Test Phase Exercise Exercise Resting -Oxygen Delivery Nasal Cannula Nasal Cannula Nasal Cannula -Oxygen Flow Rate (L/min) 2 3 2 [Pulse Oximetry] -Pulse Oximetry (90-100 %) 88 L 91 91 [Pulse Rate] -Pulse Rate (60-100 beats/min) 118 H 118 H 105 H [Charges] -Evaluation Charges
--- NOTE | 2024-09-19 09:47 | PCRCNOTE ---
HOME O2 EVAL COMPLETE, NO CHANGE IN HOME SETTINGS. PT [place] HOME O2 [place]
[2024-09-19] MEDS: AZITHROMYCIN 250 MG TABLET 500 MG PO (10:08)
[2024-09-19] MEDS: FAMOTIDINE 20 MG TABLET PO (10:08)
[2024-09-19] MEDS: AMOXICILLIN/CLAVULANATE K 875-125 MG TAB 1 TABLET PO (10:08)
[2024-09-19] MEDS: GABAPENTIN 300 MG CAPSULE PO ×2 (10:09→13:09)
[2024-09-19] MEDS: amLODIPine BESYLATE 10 MG TABLET PO (10:09)
[2024-09-19] MEDS: guaiFENesin 12 HR 600 MG TABCR 1200 MG PO (10:09)
[2024-09-19] MEDS: HYDROcodone/acetaminophen (*CRX) 5-325 MG TABLET 1 TAB PO (10:09)
[2024-09-19] MEDS: ENOXAPARIN 40 MG/0.4 ML SYRINGE SUB-Q (10:09)
[2024-09-19] MEDS: DICLOFENAC SOD 25 MG TABLET.EC 50 MG PO (10:09)
[2024-09-19] MEDS: TAMSULOSIN HCL 0.4 MG CAPSULE PO (10:09)
--- NOTE | 2024-09-19 13:15 | P.DS_ITS ---
DS: Admitting Diagnosis Discharge Date 09/19/2024 Admitting Diagnosis Acute exacerbation of COPD Chronic respiratory failure with hypoxia Polycythemia Hypertension Hyperlipidemia BPH Tobacco dependence DS: Discharge Diagnosis Discharge Diagnosis (1) Acute exacerbation of chronic obstructive pulmonary disease: Code(s): J44.1 - Chronic obstructive pulmonary disease with (acute) exacerbation Status: Acute (2) Chronic respiratory failure with hypoxia: Code(s): J96.11 - Chronic respiratory failure with hypoxia Status: Acute (3) Polycythemia: Code(s): D75.1 - Secondary polycythemia Status: Acute (4) Hypertension: Code(s): I10 - Essential (primary) hypertension Status: Acute (5) Hyperlipidemia: Code(s): E78.5 - Hyperlipidemia, unspecified Status: Acute (6) Benign prostate hyperplasia: Code(s): N40.0 - Benign prostatic hyperplasia without lower urinary tract symptoms Status: Acute (7) Tobacco dependence: Code(s): F17.200 - Nicotine dependence, unspecified, uncomplicated Status: Acute DS: Summary Hospital Course Reason for hospitalization: Acute exacerbation of COPD Chronic respiratory failure with hypoxia Polycythemia Hypertension Hyperlipidemia BPH Tobacco dependence Hospital Course: 64-year-old male smoker with chronic obstructive pulmonary disease, chronic respiratory failure with hypoxia 2 L at night, findings of interstitial lung disease on prior imaging, hypertension, hyperlipidemia, and benign prostatic hyperplasia who presented to the hospital for shortness of breath with exertion, cough productive of yellow/green phlegm, and wheezing. Vitals stable on admission. Chest x-ray shows findings consistent with interstitial lung disease and right upper lobe consolidation which appears improved compared to prior radiographs. Patient started on steroids and antibiotics for COPD exacerbation. He was noted to be polycythemic on admission which is possibly related to his ch ronic hypoxia. ABG showed primary respiratory alkalosis. Prior to discharge patient underwent a home oxygen evaluation with respiratory therapy and is to continue 2 L nasal cannula at rest and 3 L with activity. Patient states he feels back to his baseline and is ready to be discharged home. He had no complaints at time of discharge denying chest pain, shortness a breath, palpitations, nausea/vomiting, and abdominal pain. He was transitioned to oral steroids and antibiotics to complete the course. Patient discharged home with family in a stable condition. He has a follow-up with primary care provider in 1 week. Pulmonology office information was given and patient made aware that he should follow-up with them in the outpatient setting. Patient plans on discussing this with his primary care provider and having her assist him with making this appointment. Status at Discharge Functional status at discharge: independent ambulation Time Spent with Patient Time attestation: Total time spent providing and/or coordinating discharge services: Time spent: Greater than 30 minutes Exam Narrative: AF HR 105 RR 20 SPo2 91 2L NC (baseline) BP 134/80 General: male in no acute respiratory distress who is nontoxic appearing, sitting on the side of bed with 2L NC in place HEENT: Normocephalic. Atraumatic. Extraocular movement intact. Sclera clear and anicteric. No facial asymmetry. Chest: Lungs are clear to auscultation bilaterally. CV: Heart was regular rate and rhythm. Abd: Abdomen was soft. Nontender. Nondistended. Positive bowel sounds. Neuro: Speech is clear. DS: Data Data Completed and Pending Completed studies during hospitalization: Chest XR Labs on day of discharge: Labs from last 24 hours 09/19/24 04:24 WBC 13.2 H RBC 4.95 Hgb 14.2 Hct 44.4 MCV 89.7 MCH 28.7 MCHC 32.0 RDW 15.1 H Plt Count 173 MPV 9.9 Sodium 135 L Potassium 4.5 Chloride 104 Carbon Dioxide 24 Anion Gap 7 BUN 26 H Creatinine 1.05 Estim Creat Clear Calc 76 Estimated GFR > 60 Glucose 145 H Calcium 9.0 Total Bilirubin 0.4 AST 23 ALT 30 Alkaline Phosphatase 56 Total Protein 6.0 L Albumin 3.5 Preliminary micro results at discharge 09/16/24 12:50 Blood Culture - Preliminary Blood 09/16/24 12:50 Blood Culture - Preliminary Blood Discharge Plan Discharge Attending physician on discharge: Steph Lea Discharging Clinician: Marie Watters Anticipated Discharge Date/Time: 09/19/24 13:10 Patient Disposition: Home Activity: as tolerated Diet: as tolerated and heart healthy Discharge Instructions: Discharge disposition: Patient admitted to the hospital for COPD exacerbation Take medications as prescribed Prednisone, course to be completed on 09/21 Augmentin and azithromycin, course to be completed on 09/24 Attached is information on these medications Continue 2L NC at rest and 3L NC with activity Follow up with pulmonology, attached is the office number Monitor blood pressures Take caution while standing, rising, or moving Change positions slowly taking a break between each position change If you standing feel dizzy sit back down and take a break Encouraged to continue with yearly vaccinations Return to the emergency department if he developed sudden shortness of breath, chest pain, nausea, vomiting, upset stomach or intractable diarrhea Return to the emergency department if you develop fever greater than 101.5 Follow-up with the primary care physician within 1-[address] [facility] for your healthcare needs Patient Instructions: Antibiotic Form, Prednisone (By mouth), Amoxicillin/Clavulanate Potassium (By mouth), Azithromycin (By mouth), Using Oxygen at Home (DC), COPD (Chronic Obstructive Pulmonary Disease) (DC) Patient Language: Kyrgyz Stand Alone Forms: General Discharge Information Follow-up/Referrals: Jonas,DAVEY Hill [Primary Care Provider] - 1 Week Andressa Sotelo MD [Physician] - Call for Appointment Discharge Medications: New azithromycin [Zithromax] 250 mg Tablet 500 mg PO DAILY Qty: 5 0RF amoxicillin-pot clavulanate 875-125 mg tablet 1 tablet PO Q12H Qty: 11 0RF prednisone 5 mg tablet 5 mg PO DAILY Qty: 2 0RF Continued albuterol sulfate 2.5 mg /3 mL (0.083 %) solution for nebulization 2.5 mg continuous nebulization PRN PRN (Reason: difficulty breathing) hydrocodone-acetaminophen 5-325 mg tablet 1 tablet PO Q12H Patient Comments: 2 x day, morning and evening famotidine 20 mg tablet 20 mg PO BID tamsulosin 0.4 mg capsule 0.4 mg PO DAILY amlodipine 10 mg tablet 10 mg PO DAILY diclofenac sodium 50 mg tablet,delayed release (DR/EC) 50 mg PO BID Qty: 40 0RF albuterol sulfate [Ventolin HFA] 90 mcg/actuation HFA aerosol inhaler 1 puff INHALATION BID gabapentin 300 mg capsule 300 mg PO TID atorvastatin [Lipitor] 40 mg tablet 40 mg PO HS Date of admission: 09/17/24 09:53 Primary Care Provider: JonasSergio Admitting Provider: Sushil Echeverria Attending physician on admission: Marie Watters Condition: Stable Hospitalist MIPS Heart Failure (Exclusion) Patient has history of Heart Transplant or Left Ventricular Assistive Device?: No IF YES, STOP HERE Heart Failure (Qualifier) Patient has current or prior documentation of LVEF less than or equal to 40%, or mod/servere depressed LVSF?: No IF NO, STOP HERE
[2024-09-19 15:14] LABS: Pneumococcal Antigen Urine NOT DETECTED
[2024-09-19 18:18] LABS: Mycoplasma IgM Antibody Titer 107 U/mL
[2024-09-19 19:07] LABS: Legionella pneumophila Ag Ur NOT DETECTED
== END 2024-09-19 14:01 | disposition home or self-care (01) | DRG 191 ==
LOC: ANHED 12:40 → ANH3MED 13:36
PROVIDERS: Physician Assistant; Admitting Provider Family Medicine; Emergency Provider Emergency Medicine; PCP Nurse Practitioner Family; Visit Provider Student in an Organized Health Care Education/Training Program
DX: J44.1 Chronic obstructive pulmonary disease with (acute) exacerbation (principal); J96.11 Chronic respiratory failure with hypoxia; D75.1 Secondary polycythemia; E78.5 Hyperlipidemia, unspecified; I10 Essential (primary) hypertension; N40.0 Benign prostatic hyperplasia without lower urinary tract symptoms; F17.210 Nicotine dependence, cigarettes, uncomplicated; Z99.81 Dependence on supplemental oxygen; Z90.49 Acquired absence of other specified parts of digestive tract; G25.81 Restless legs syndrome
CPT/HCPCS: 36415; 36600; 71046; 80048; 80053; 82375; 82805; 83050; 83690; 83735; 83880; 84484; 85018; 85025; 85027; 85610; 85730; 86738; 87040; 87070; 87205; 87449; 87637; 87641; 87899; 93005; 94618; 94640; 94667; 94668; 96365; 96367; 96375; 96376; 99285; A9270; G0378; J0456; J0696; J1650; J2919

== ENCOUNTER 2025-03-12 00:55 | Emergency (ER) | payer MEDICARE, SELFPAY ==
[2025-03-12] VITALS (35 sets, daily range): BP systolic 112–146; BP diastolic 75–93; PULSE 81–104; RESP 15–29; TEMP 36.4; O2SAT 89–100
--- NOTE | ~2025-03-12 | XR_ITS ---
Examination: XR chest 2V Clinical History: SOB Comparison: 09/16/2024 Technique: PA and Lateral Findings: Cardiomediastinal silhouette normal size and configuration. Persistent linear streaky opacity right upper lobe. Persistent scattered interstitial markings. No acute bony abnormality. IMPRESSION: 1. No acute cardiopulmonary findings. 2. Interstitial lung disease. 3. Chronic opacity or scarring right upper lobe. Reviewed, dictated and finalized at location R.
--- NOTE | 2025-03-12 01:05 | ECG_ITS ---
Test Date: 2025-03-12 01:37:40 Measurements Intervals Mason Rate: 81 P: 34 PA: 163 QRS: -3 QRSD: 82 T: 53 QT: 358 QTc: 418 Interpretive Statements SINUS RHYTHM NORMAL ECG Compared to ECG 09/16/2024 12:23:40 No significant changes Electronically Signed On 03-12-2025 05:16:23 CDT by Kristopher Egan D.O.
[2025-03-12 01:49] LABS: Hematocrit 52.7 % (42.0-52.0); Hemoglobin 17.1 g/dL (14.0-18.0); Immature Granulocyte Percent A 0.4 % (0-0.5); Lymphocytes Absolute Auto 1.93 K/mm3 (0.9-3.2); Mean Corpuscular HGB Conc 32.4 g/dl (32-36); Mean Corpuscular Hemoglobin 28.0 pg (26-34); Mean Corpuscular Volume 86.4 fl (80-100); Nucleated Red Blood Cells Absolute Auto 0.000 K/mm3 (0.0-0.012); Nucleated Red Blood Cells Perc 0.0 % (0.0-0.2); Platelet Count Result 193 k/mm3 (150-375); Red Blood Count 6.10 M/mm3 (4.6-6.20); White Blood Count 11.1 K/mm3 (4.5-10.0)
[2025-03-12 01:59] LABS: Alanine Aminotransferase 48 U/L (6-50); Albumin Level 4.6 g/dL (3.5-5.1); Alkaline Phosphatase 89 U/L (38-126); Anion Gap 6 mmol/L (4-12); Aspartate Amino Transferase 35 U/L (17-59); Bilirubin,Total 0.9 mg/dL (0.2-1.3); Blood Urea Nitrogen 11 mg/dL (9-20); Calcium 9.3 mg/dL (8.4-10.2); Carbon Dioxide 30 mmol/L (22-30); Chloride 102 mmol/L (98-107); Estimated CRCL calculation 55 ml/min; Estimated Glomerular Filt Rate > 60; Glucose 108 mg/dL (65-110); Potassium 4.1 mmol/L (3.4-5.0); Sodium 138 mmol/L (137-145); Total Protein 7.6 g/dL (6.3-8.2)
[2025-03-12 04:58] LABS: NT Pro B Type Natriuretic Pept < 20 pg/mL (19.9-100)
[2025-03-12 07:01] LABS: Influenza A QL RT-PCR Negative (Negative); Influenza B QL RT-PCR Negative (Negative); RSV RNA, RT-PCR Negative (Negative); SARS-CoV-2 RNA PCR Negative (Negative)
[2025-03-12] MEDS: IPRATROPIUM 0.5 MG/ALBUTEROL SULFATE 2.5 MG (BASE) AMPUL.NEB 3 ML INHALATION (07:05)
--- NOTE | 2025-03-12 07:15 | ED.GENADULT ---
HPI - General Adult General Chief complaint: Shortness of Breath/Dyspnea Stated complaint: breathing problems Time Seen by Provider: 03/12/25 07:03 History of Present Illness HPI narrative: 64-year-old male presents to the emergency department for evaluation for worsening shortness breath over the last 3 days. Patient does have history of COPD is supposed be on 2 L of oxygen by nasal cannula at all times. Patient reports typically he only uses oxygen at nighttime but states over the last 3 days he has been using at all today. Patient does report increased cough and congestion. Patient does report increased body aches as well. Patient does report some increased chest tightness today. Patient denies any chest pain. Patient denies any prior cardiac history. Related Data Home Medications ?Medication ?Instructions ?Recorded ?Confirmed ?Last Taken ?Type albuterol sulfate 2.5 mg/3 mL 2.5 mg continuous nebulization PRN 01/16/22 09/16/24 09/16/24 History (0.083 %) solution for nebulization PRN difficulty breathing amlodipine 10 mg tablet 10 mg PO DAILY 01/16/22 09/16/24 09/15/24 History famotidine 20 mg tablet 20 mg PO BID 01/16/22 09/16/24 09/15/24 History hydrocodone 5 mg-acetaminophen 325 1 tablet PO Q12H 01/16/22 09/16/24 09/15/24 History mg tablet tamsulosin 0.4 mg capsule 0.4 mg PO DAILY 01/16/22 09/16/24 09/15/24 History albuterol sulfate 90 mcg/actuation 1 puff inhalation BID 06/27/24 09/16/24 09/15/24 History aerosol inhaler (Ventolin HFA) atorvastatin 40 mg tablet (Lipitor) 40 mg PO HS 06/27/24 09/16/24 09/14/24 History gabapentin 300 mg capsule 300 mg PO TID 06/27/24 09/16/24 09/15/24 History Allergies Allergy/AdvReac Type Severity Reaction Status Date / Time No Known Allergies Allergy Verified 03/12/25 08:06 Review of Systems Review of Systems: All systems reviewed & are unremarkable except as noted in HPI and below PMFSH Past Medical History Medical History Restless leg syndrome Tobacco dependence Interstitial lung disease Chronic obstructive pulmonary disease Hyperlipidemia Benign prostate hyperplasia Hypertension Surgical History Surgical History History of open reduction and internal fixation (ORIF) procedure repair left lower extremity fracture History of cholecystectomy Family History Family History Mother Lung cancer Type II diabetes mellitus Father Lung cancer Sibling Cerebrovascular accident Social History Social History Social History: Surrogate medical decision maker: Sharmila Roberson, daughter. Code status: Full code. Smoking packs per day: 1 Smoking cigarettes per day: 20.0 Years smoked: 50 Smoking pack-years: 50.00 Smoking status: Current every day smoker Alcohol intake: never Substance use: current Substance use type: marijuana Last use: 2-3 weeks ago Do You Feel Safe in your Home?: Yes Lack of Transportation: No Lack of Food: Never True Current Housing: I Have Housing Concerned About Future Housing: No Difficulty Paying Gas/Electric Bills: No Difficulty Paying for Meds: No Currently Unemployed: No Education: Grade School Difficulty w/ Childcare or Family Care: No Living arrangements: alone Additional living arrangements comments: . Lives in [place]. No pets. Spiritual care concerns: No Exam Narrative: APPEARANCE: Well appearing, no pain, no distress, well-nourished. HEAD: normocephalic, atraumatic. EYES: PERRLA/EOMI, conjunctivae clear. NOSE: Normal no drainage EARS:TMS clear with good light reflex. THROAT: Pharynx clear, no exudate. NECK: Supple. No adenopathy, no masses. RESPIRATORY: Expiratory wheeze in all lung thompson. CARDIOVASCULAR: Regular rate and rhythm without murmurs rubs or gallops. ABDOMINAL: Soft, nontender, nondistended, normal bowel sounds MUSCULOSKELETAL: Moves all extremities. Strength/ROM intact, No edema, No calf tenderness. NEURO: Alert. Cranial nerves II through XII intact. Good gait. Good coordination SKIN: Warm, dry. Normal Color Course Vital Signs Vital signs: Vital Signs Temperature 97.5 F L 03/12/25 00:59 Pulse Rate 95 03/12/25 00:59 Respiratory Rate 20 03/12/25 00:59 Blood Pressure 139/80 03/12/25 00:59 Pulse Oximetry 92 03/12/25 00:59 Oxygen Delivery Nasal Cannula 03/12/25 00:59 Oxygen Flow Rate 3 03/12/25 00:59 Temperature 97.5 F L 03/12/25 00:59 Pulse Rate 88 03/12/25 09:53 Respiratory Rate 20 03/12/25 09:53 Blood Pressure 125/78 03/12/25 09:53 Pulse Oximetry 93 03/12/25 09:53 Oxygen Delivery Nasal Cannula 03/12/25 07:15 Oxygen Flow Rate 2 03/12/25 07:15 Medical Decision Making MDM Narrative Medical decision making narrative: 64-year-old male presents to the emergency department for evaluation for worsening shortness breath. Time of initial evaluation patient was getting a breathing treatment of 2.5 mg of nebulized albuterol patient does have significant wheeze. Additional 5 mg albuterol was given. Patient was also started 125 mg of IV Solu-Medrol. Patient is afebrile but does have a leukocytosis 11.1 hemoglobin of 17.1. Patient D-dimer was less than 0.27. No acute abnormalities on his CMP including a low pro BNP and patient was negative for influenza RSV and for COVID. Chest x-ray does show interstitial lung disease with no other acute findings. On re-evaluation patient reports he does feel improved and patient is saturating well on his baseline 2 L of oxygen. At did discuss admission for the patient if he was still having persistent shortness breath and patient does strongly prefer to be discharged home. Patient states he does have albuterol at home. Patient will be continued on the prednisone home patient will be started on Augmentin azithromycin. Differential Diagnosis Differential Diagnosis: COVID RSV, influenza, pneumonia, COPD exacerbation Vital Signs Vital Signs: Vital Signs Temperature 97.5 F L 03/12/25 00:59 Pulse Rate 95 03/12/25 00:59 Respiratory Rate 20 03/12/25 00:59 Blood Pressure 139/80 03/12/25 00:59 Pulse Oximetry 92 03/12/25 00:59 Oxygen Delivery Nasal Cannula 03/12/25 00:59 Oxygen Flow Rate 3 03/12/25 00:59 Temperature 97.5 F L 03/12/25 00:59 Pulse Rate 88 03/12/25 09:53 Respiratory Rate 20 03/12/25 09:53 Blood Pressure 125/78 03/12/25 09:53 Pulse Oximetry 93 03/12/25 09:53 Oxygen Delivery Nasal Cannula 03/12/25 07:15 Oxygen Flow Rate 2 03/12/25 07:15 Lab Data Lab results reviewed: Yes I reviewed the patient's lab results. 03/12/25 01:41 03/12/25 01:41 Labs: Lab Results 03/12/25 03/12/25 Range/Units 01:41 06:22 WBC 11.1 H (4.5-10.0) K/mm3 RBC 6.10 (4.6-6.20) M/mm3 Hgb 17.1 (14.0-18.0) g/dL Hct 52.7 H (42.0-52.0) % MCV 86.4 (80-100) fl MCH 28.0 (26-34) pg MCHC 32.4 (32-36) g/dl RDW 13.6 (11.5-14.5) % Plt Count 193 (150-375) k/mm3 MPV 9.6 (7.4-10.4) fl Immature Gran % (Auto) 0.4 (0-0.5) % Neut % (Auto) 63.8 (45.5-73.1) % Lymph % (Auto) 17.3 L (18.3-44.2) % Gilmer % (Auto) 5.9 (2.6-8.5) % Eos % (Auto) 11.6 H (0-4.4) % Baso % (Auto) 1.0 (0.2-1.2) % Lymph # (Auto) 1.93 (0.9-3.2) K/mm3 Gilmer # (Auto) 0.7 H (0.1-0.6) K/mm3 Eos # (Auto) 1.3 H (0-0.3) K/mm3 Baso # (Auto) 0.1 (0.0-0.1) K/mm3 Abs Immat Gran (auto) 0.04 H (0.00-0.031) K/mm3 Absolute Neuts (auto) 7.1 H (1.3-6.7) K/mm3 Absolute Nucleated RBC 0.000 (0.0-0.012) K/mm3 Nucleated RBC % 0.0 (0.0-0.2) % D-Dimer < 0.27 (<0.48) ug/mL Sodium 138 (137-145) mmol/L Potassium 4.1 (3.4-5.0) mmol/L Chloride 102 (98-107) mmol/L Carbon Dioxide 30 (22-30) mmol/L Anion Gap 6 (4-12) mmol/L BUN 11 D (9-20) mg/dL Creatinine 1.13 (0.7-1.3) mg/dL Estim Creat Clear Calc 55 ml/min Estimated GFR > 60 (59 - ) Glucose 108 (65-110) mg/dL Calcium 9.3 (8.4-10.2) mg/dL Total Bilirubin 0.9 (0.2-1.3) mg/dL AST 35 (17-59) U/L ALT 48 (6-50) U/L Alkaline Phosphatase 89 (38-126) U/L NT-Pro-B Natriuret Pep < 20 (19.9-100) pg/mL Total Protein 7.6 (6.3-8.2) g/dL Albumin 4.6 (3.5-5.1) g/dL Influenza A (RT-PCR) Negative (Negative) Influenza B (RT-PCR) Negative (Negative) RSV (RT-PCR) Negative (Negative) SARS-CoV-2 RNA (RT-PCR) Negative (Negative) Imaging Data Radiologist's impression: Impressions Chest X-Ray 03/12/25 07:01 IMPRESSION: 1. No acute cardiopulmonary findings. 2. Interstitial lung disease. 3. Chronic opacity or scarring right upper lobe. ECG Data EKG #1: ECG completion date: 03/12/25 ECG completion time: 01:37 EKG Interpretation: normal rate, sinus rhythm, no ectopy, non-specific ST changes, normal QRS, NL axis and no acute changes Discharge Plan Discharge Clinical Impression: COPD exacerbation, Pneumonia Patient Disposition: Home Condition: Stable Instructions: Antibiotic Form, COPD (Chronic Obstructive Pulmonary Disease) (ED), Community Acquired Pneumonia (ED) Additional Instructions: Antibiotic as directed until completed. Prednisone as directed until completed. Albuterol as needed for shortness of breath. Have close follow-up with your primary care physician. Refrain from smoking. If you have any worsening symptoms then please call or return to the emergency department. Patient Language: Austrian Prescriptions: New azithromycin 250 mg tablet See Rx Instructions .ROUTE .COMPLEX Qty: 6 0RF Rx Instructions: For 250 mg dose pack: take 500 mg today (day 1), then 250 mg for 4 days (days 2-5) amoxicillin-pot clavulanate 875-125 mg tablet 1 tablet PO Q12H 7 Days Qty: 14 0RF prednisone 50 mg tablet 50 mg PO DAILY 5 Days Qty: 5 0RF No Action albuterol sulfate 2.5 mg /3 mL (0.083 %) solution for nebulization 2.5 mg continuous nebulization PRN PRN (Reason: difficulty breathing) hydrocodone-acetaminophen 5-325 mg tablet 1 tablet PO Q12H Patient Comments: 2 x day, morning and evening famotidine 20 mg tablet 20 mg PO BID tamsulosin 0.4 mg capsule 0.4 mg PO DAILY amlodipine 10 mg tablet 10 mg PO DAILY diclofenac sodium 50 mg tablet,delayed release (DR/EC) 50 mg PO BID Qty: 40 0RF albuterol sulfate [Ventolin HFA] 90 mcg/actuation HFA aerosol inhaler 1 puff INHALATION BID gabapentin 300 mg capsule 300 mg PO TID atorvastatin [Lipitor] 40 mg tablet 40 mg PO HS azithromycin [Zithromax] 250 mg Tablet 500 mg PO DAILY Qty: 5 0RF amoxicillin-pot clavulanate 875-125 mg tablet 1 tablet PO Q12H Qty: 11 0RF prednisone 5 mg tablet 5 mg PO DAILY Qty: 2 0RF Follow-up/Referrals: Jonas,DAVEY Hill [Primary Care Provider]
[2025-03-12] MEDS: ALBUTEROL SULFATE NEB 2.5 MG/3 ML INH 5 MG INHALATION (07:17)
[2025-03-12] MEDS: HYDROcodone/acetaminophen (*CRX) 7.5-325 MG TABLET 1 TAB PO (08:05)
[2025-03-12] MEDS: AZITHROMYCIN 250 MG TABLET 500 MG PO (09:53)
== END 2025-03-12 10:00 | disposition home or self-care (01) ==
PROVIDERS: Student in an Organized Health Care Education/Training Program; Emergency Provider Emergency Medicine; PCP Nurse Practitioner Family
DX: J18.9 Pneumonia, unspecified organism (principal); J44.1 Chronic obstructive pulmonary disease with (acute) exacerbation; Z20.822 Contact with and (suspected) exposure to COVID-19; Z99.81 Dependence on supplemental oxygen; Z79.899 Other long term (current) drug therapy
CPT/HCPCS: 36415; 71046; 80053; 83880; 85025; 85380; 87637; 93005; 94640; 96374; 99284; A9270; J2919